=== PATIENT | male | born 1960 | race Caucasian/White ===

== ENCOUNTER → 2019-12-15 11:16 | Outpatient (BNVA) | payer SELFPAY | PROVIDERS: Visit Provider Nurse Practitioner | DX: E78.5 Hyperlipidemia, unspecified (principal) | CPT/HCPCS: 80053; 80061; 83721 ==

== ENCOUNTER 2019-12-16 11:38 | Outpatient (REF) | payer SELFPAY | END 2019-12-16 11:39 | disposition home or self-care (01) | LOC: LAB 11:38 | PROVIDERS: PCP Nurse Practitioner; Visit Provider Nurse Practitioner | DX: Z01.89 Encounter for other specified special examinations (principal) ==

== ENCOUNTER → 2020-06-12 08:33 | Outpatient (BNVA) | payer SELFPAY | PROVIDERS: PCP Nurse Practitioner; Visit Provider Family Medicine Adult Medicine | DX: E78.5 Hyperlipidemia, unspecified (principal); I10 Essential (primary) hypertension; M1A.9XX0 Chronic gout, unspecified, without tophus (tophi); M19.90 Unspecified osteoarthritis, unspecified site; N18.9 Chronic kidney disease, unspecified; M54.9 Dorsalgia, unspecified; M25.512 Pain in left shoulder; M62.838 Other muscle spasm; J30.89 Other allergic rhinitis; K21.9 Gastro-esophageal reflux disease without esophagitis | CPT/HCPCS: 80053; 80061; 83721; 84550; 85025; 86140 ==

== ENCOUNTER → 2020-09-11 09:03 | Outpatient (BNVA) | payer SELFPAY | PROVIDERS: PCP Family Medicine Adult Medicine; Visit Provider Family Medicine Adult Medicine | DX: E78.5 Hyperlipidemia, unspecified (principal); M1A.9XX0 Chronic gout, unspecified, without tophus (tophi); M19.90 Unspecified osteoarthritis, unspecified site; N18.30 Chronic kidney disease, stage 3 unspecified; Z00.00 Encounter for general adult medical examination without abnormal findings; I12.9 Hypertensive chronic kidney disease with stage 1 through stage 4 chronic kidney disease, or unspecified chronic kidney disease | CPT/HCPCS: 80053; 80061; 83721; 84443 ==

== ENCOUNTER → 2021-04-16 08:42 | Outpatient (BNVA) | payer SELFPAY | PROVIDERS: PCP Family Medicine Adult Medicine; Visit Provider Family Medicine Adult Medicine | DX: I12.9 Hypertensive chronic kidney disease with stage 1 through stage 4 chronic kidney disease, or unspecified chronic kidney disease (principal); E78.5 Hyperlipidemia, unspecified; N18.30 Chronic kidney disease, stage 3 unspecified; M54.9 Dorsalgia, unspecified; M25.512 Pain in left shoulder; M62.838 Other muscle spasm; M19.90 Unspecified osteoarthritis, unspecified site; Z00.00 Encounter for general adult medical examination without abnormal findings; M1A.9XX0 Chronic gout, unspecified, without tophus (tophi) | CPT/HCPCS: 80048; 80061; 83036; 83721 ==

== ENCOUNTER → 2021-07-16 08:17 | Outpatient (BNVA) | payer SELFPAY | PROVIDERS: PCP Family Medicine Adult Medicine; Visit Provider Family Medicine Adult Medicine | DX: I12.9 Hypertensive chronic kidney disease with stage 1 through stage 4 chronic kidney disease, or unspecified chronic kidney disease (principal); N18.30 Chronic kidney disease, stage 3 unspecified; M1A.9XX0 Chronic gout, unspecified, without tophus (tophi); Z00.00 Encounter for general adult medical examination without abnormal findings; E78.5 Hyperlipidemia, unspecified | CPT/HCPCS: 80053; 80061; 83721; 84550; 85025 ==

== ENCOUNTER 2021-10-01 09:39 | Outpatient (CLI) | payer SELFPAY ==
--- NOTE | 2021-10-01 09:46 | US_ITS ---
WS: [id number] RENAL ULTRASOUND HISTORY: STAGE 3B CHRONIC KIDNEY DZ COMPARISON: None available. TECHNIQUE: 2-D and color Doppler imaging of the kidney submitted. Right kidney: 11.2 cm x 5.4 cm x 5.4 cm. There is very slight increased echogenicity within the RIGHT kidney. No obstruction or mass. Left kidney: 11.4 cm x 4.1 cm x 5.5 cm. Normal size kidney. Normal echogenicity. Simple cyst from the superior pole measures 2.4 x 2.2 x 2.4 cm. No solid mass. Aorta: Normal. Urinary Bladder: Moderately well distended urinary bladder. Mild diffuse wall thickening. Prostate gl and is lobulated and enlarged and hypoechoic extending into the bladder. Prostate measures 4.0 x 3.3 x 3.7 cm. US/US renal BI* [id number] IMPRESSION: 1. No hydronephrosis. 2. Very minimal increased echogenicity within the RIGHT kidney. No obvious fin dings of chronic medical renal disease by ultrasound. 3. Simple cyst LEFT kidney. 4. Enlarged lobulated prostate.
== END 2021-10-01 09:40 | disposition home or self-care (01) ==
LOC: RAD 09:42
PROVIDERS: PCP Family Medicine Adult Medicine; Visit Provider Registered Nurse
DX: N18.32 Chronic kidney disease, stage 3b (principal); N40.0 Benign prostatic hyperplasia without lower urinary tract symptoms; N28.1 Cyst of kidney, acquired
CPT/HCPCS: 76770

== ENCOUNTER → 2021-10-15 08:36 | Outpatient (BNVA) | payer SELFPAY | PROVIDERS: PCP Family Medicine Adult Medicine; Visit Provider Family Medicine Adult Medicine | DX: Z00.00 Encounter for general adult medical examination without abnormal findings (principal); M79.601 Pain in right arm; M54.59 Other low back pain; I12.9 Hypertensive chronic kidney disease with stage 1 through stage 4 chronic kidney disease, or unspecified chronic kidney disease; E78.5 Hyperlipidemia, unspecified; N18.30 Chronic kidney disease, stage 3 unspecified; Z68.28 Body mass index [BMI] 28.0-28.9, adult; Z71.89 Other specified counseling | CPT/HCPCS: 80061; 80069; 81003; 82043; 82306; 82310; 83721; 83883; 83970; 84155; 84165; 85025 ==

== ENCOUNTER 2021-11-19 09:45 | Outpatient (CLI) | payer SELFPAY ==
[2021-11-19 10:29] LABS: Basophils # 0.1 10^3/uL (0.0-0.1); Basophils % 0.8 %; Eosinophils # 0.5 10^3/uL (0.0-0.8); Eosinophils % 5.1 %; Hematocrit 47.4 % (42.0-52.0); Hemoglobin 15.6 g/dL (11.7-16.6); Lymphocytes % 21.6 %; Mean Corpuscular HGB Conc 32.9 g/dL (30.0-36.0); Mean Corpuscular Hemoglobin 29.6 pg (28.0-34.0); Mean Corpuscular Volume 89.9 fl (80-94); Mean Platelet Volume 11.7 fL (7.4-10.4); Monocytes # 0.6 10^3/uL (0.2-0.9); Monocytes % 6.5 %; Neutrophils # 5.98 10^3/uL (1.8-7.7); Neutrophils % 65.7 %; Nucleated Red Blood Cells % 0 %; Platelet Count 229 10^3/cmm (130-400); Red Blood Count 5.27 10^6/uL (4.1-5.3); White Blood Count 9.1 10^3/uL (4.0-10.0)
[2021-11-19 10:54] LABS: Calcium 9.9 mg/dL (8.5-10.5)
[2021-11-19 10:57] LABS: Anion Gap 17.8 (5-19); Blood Urea Nitrogen 28 mg/dL (8-23); Calcium 10.1 mg/dL (8.5-10.5); Carbon Dioxide 22 mmol/L (22-29); Chloride 103 mmol/L (98-107); Glomerular Filtration Rate 51.4 mL/min (90-130); Glucose 107 mg/dL (65-115); Phosphorus 2.5 mg/dL (2.5-4.5); Potassium 4.8 mmol/L (3.5-5.1); Sodium 138 mmol/L (136-145)
[2021-11-19 11:01] LABS: Parathyroid Hormone 109.8 pg/mL (15-65)
[2021-11-19 11:10] LABS: Creatinine Urine, Random 196 mg/dL (39-259); Microalbumin Random Urine 20 ug/dL (0-20)
[2021-11-19 11:11] LABS: Microalbum Creatinine Ratio Ur 102 mg/dL (0-20)
== END 2021-11-19 09:46 | disposition home or self-care (01) ==
LOC: LAB 09:57
PROVIDERS: PCP Family Medicine Adult Medicine; Visit Provider Internal Medicine Nephrology
DX: N18.32 Chronic kidney disease, stage 3b (principal)
CPT/HCPCS: 80069; 82044; 82310; 83970; 85025

== ENCOUNTER → 2023-11-18 09:37 | Outpatient (BNVA) | payer SELFPAY | PROVIDERS: PCP Family Medicine Adult Medicine; Visit Provider Family Medicine Adult Medicine | DX: N18.30 Chronic kidney disease, stage 3 unspecified (principal); I10 Essential (primary) hypertension; E78.5 Hyperlipidemia, unspecified; Z00.00 Encounter for general adult medical examination without abnormal findings; M1A.9XX0 Chronic gout, unspecified, without tophus (tophi) | CPT/HCPCS: 80053; 80061; 84443; 84550; 85025; G0103 ==

== ENCOUNTER 2023-12-23 09:21 | Observation (INO) | payer SELFPAY ==
[2023-12-23] VITALS (10 sets, daily range): BP systolic 110–135; BP diastolic 68–79; PULSE 72–115; RESP 16–20; TEMP 36.5–36.9; O2SAT 95–100; BMI 26.0
--- NOTE | 2023-12-23 09:40 | XR_ITS ---
WS: [id number] Exam: XR chest 1V portable [id number] Date/Time of Exam: 12/23/2023 9:41 AM Reason For Exam: syncope No priors. The lungs are clear and fully expanded. Normal cardiomediastinal silhouette. Bony structures are unre markable. Moderate levoscoliosis of the T-spine. IMPRESSION: 1. No acute cardiopulmonary finding.
--- NOTE | 2023-12-23 09:41 | ECG_ITS ---
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 Measurements Intervals [employer] Rate: 83 P: 27 NC: 174 QRS: 24 QRSD: 84 T: 47 QT: 363 QTc: 427 Interpretive Statements SINUS RHYTHM WITH OCCASIONAL VENTRICULAR PREMATURE COMPLEXES No previous ECG available for comparison Electronically Signed On 12-24-2023 23:42:25 CDT by Lula Cadena M.D. [id number]
--- NOTE | 2023-12-23 09:47 | ED_ITS ---
Documented by User: GIOVANI Romero 12/23/23 13:00 HPI - Syncope 2 General: Chief Complaint: Syncope Stated Complaint: Syncope Time Seen by Provider: 12/23/23 09:46 Source: patient and EMS Mode of arrival: EMS Limitations: no limitations History of Present Illness: Patient is a 63-year-old male with a history of CKD stage III, osteoarthritis, GERD, gout, seasonal allergies, hypertension, former smoker, COPD, hyperlipidemia, and gastritis here via EMS following a syncopal episode. Patient states that he has not felt good in 3 weeks stating that his stomach has been bothering me . He states today while at work he began feeling lightheaded and dizzy. 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 Patient denies ever feeling chest pain, shortness of breath, or difficulty breathing. According to EMS blood pressure was low upon arrival but did respond to a small fluid bolus. He has had bouts of dizziness before but never passed out. States he takes a PPI for his stomach pains. PCP is Dr. Gilmore. Patient works at [employer] and this is a Worker's Comp injury reportedly. [employer] is requesting UDS. complaint: loss of consciousness Onset (ago): hour(s) -: second(s) Prodromal symptoms: lightheaded Witnessed: Yes - by Bystander Injuries sustained associated with event: face (glasses scraped his face) Associated symptoms: Reports abdominal pain and nausea; Deny chest pain, fever(s), headache(s) or lightheadedness Treatments prior to arrival: IV fluids Review of Systems 2 Const: Denies: fever(s), chills, body aches, fatigue or malaise Eyes: Denies: change in vision or blurry vision Card: Reports: syncope; Denies: chest pain, palpitations, irregular heart rhythm, swelling of feet/ankles, lightheadedness, dyspnea on exertion, orthopnea, leg pain with exertion or acrocyanosis Resp: Denies: dyspnea, productive cough or pain on inspiration GI: Reports: abdominal pain, nausea and heartburn; Denies: vomiting, diarrhea, hematochezia or melena : Denies: difficulty urinating or dysuria Musc: Reports: neck pain (chronic); Denies: back pain, extremity pain, extremity swelling or joint pain Skin/Breast: Denies: rash Neuro: Denies: headache(s), numbness in extremities, weakness in extremities, sensory changes or dizziness PFSH ED 2 PFSH: Medical History (Updated 12/23/23 @ 14:05 by Luis A Contreras MD) Refusal of blood transfusions as patient is Mormonism COPD (chronic obstructive pulmonary disease) Former cigarette smoker Encounter for health maintenance examination in adult Hematuria, microscopic BPH (benign prostatic hyperplasia) CKD (chronic kidney disease) stage 3, GFR 30-59 ml/min 11/18/2023 creatinine 1.8 with a GFR 38 Muscle spasms of both lower extremities Hypertension Hyperlipidemia GERD (gastroesophageal reflux disease) Chronic gout Osteoarthritis Surgical History History of tonsillectomy History of hand surgery right Family History Brother Cancer Father Lung disease Social History Smoking and tobacco/nicotine status: former use of tobacco/nicotine Alcohol intake: current Alcohol intake frequency: holidays/special occasions only Substance/Drug Use: never Physical Exam 2 Const: COMMON NORMALS: no acute distress, average body habitus, patient oriented x3, no limitations, healthy appearing, alert and well nourished O RIENTATION/CONSCIOUSNESS: Yes awake, Yes oriented to person, Yes oriented to place and Yes oriented to time HENMT: COMMON NORMALS: normocephalic and atraumatic HEAD & SCALP: n ormocephalic and atraumatic FACE & SINUS: normal facial exam (apart from a small scratch to L cheek from glasses) Eye: GENERAL EYE: appearance normal, both eyes and all related structures Neck/C-Spine: COMMON NORMALS: full ROM, no lymphadenopathy, supple and no meningeal signs Chest: COMMONS NORMALS: normal inspection of the chest Resp: COMMON NORMALS: normal respiratory effort and clear to auscultation bilaterally AUSCULTATION: clear to auscultation bilaterally Cardio: COMMON NORMALS: regular rate and regular rhythm RATE: regular rate RHYTHM: regular rhythm GI: COMMON NORMALS: Normal to inspection, nondistended, normoactive bowel sounds present, Soft to palpation, No hepatosplenomegaly present and no masses INSPECTION: Yes normal to inspection AUSCULTATION: Yes normoactive bowel sounds PALPATION: Yes Soft to palpation, Yes Tenderness to palpation present (GI) (epigastric), No Guarding due to palpation present (GI), No Rigid due to palpation and Yes No hepatosplenomegaly present RECTAL EXAM: Yes heme negative stool : COMMON NORMALS: Yes no CVA tenderness BLADDER/KIDNEY EXAM: Yes no CVA tenderness Back/Pelvis: COMMON NORMALS: no CVA tenderness and thoracic and lumbar spine normal to inspection Extremity: COMMON NORMALS: normal to inspection, capillary refill normal, no clubbing, cyanosis or edema, no calf tenderness and no pedal edema Neuro: CLARE COMA SCALE: document GCS findings Clare coma scale eye opening: Spontaneous Clare coma scale verbal response: Orientated Clare coma scale motor response: Obey commands Clare coma scale total score: 15 COMMON NORMALS: patient oriented x3, moves all extremities, no focal motor deficits and no sensory deficits noted SENSORIUM/ORIENTATION: Yes alert, Yes oriented to person, Yes oriented to place and Yes oriented to time MENINGEAL SIGNS: Yes no meningeal signs Skin: COMMON NORMALS: no rashes or lesions noted GENERAL SKIN EXAM: no rashes or lesions noted Course 2 Consultations: Consultation #1: Dr. Contreras-will accept hospitalization Consultation #2: Dr. Fitzgerald-will consult with plan for endoscopy/biopsy tomorrow Vital Signs: Vital signs: Vital Signs Temperature 97.7 F 12/23/23 09:26 Pulse Rate 107 H 12/23/23 13:00 Respiratory Rate 20 H 12/23/23 09:26 Blood Pressure 110/77 12/23/23 13:00 Pulse Oximetry 96 12/23/23 13:00 Oxygen Delivery Me thod Room Air 12/23/23 09:26 MDM - Syncope Medical Decision Making Patient is a nice 63-year-old male here for dizziness/syncopal episode while at work today. Patient states he has not felt well over the past 3 weeks and has not ate or drink much secondary to pain and feeling like his food gets stuck. He has not had any vomiting. Labs today showing some mild anemia compared to labs drawn last month. Hemoccult was negative. He does have acute kidney injury with his creatinine being 2.7 which is up from his baseline. Baseline troponin of 22 with a negative delta. Remainder of labs are fairly unremarkable. 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 Spoke to Dr. Contreras who is agreeable to admission. Dr. Fitzgerald was consulted and was agreeable to biopsy mass tomorrow. Lab Data 12/23/23 09:58 12/23/23 09:58 Laboratory Results WBC 14.81 10^3/uL (3.29-11.43) H 12/23/23 09:58 RBC 4.04 10^6/uL (3.85-5.65) 12/23/23 09:58 Hgb 10.20 g/dL (11.27-16.99) L 12/23/23 09:58 Hct 33.2 % (37-53) L 12/23/23 09:58 MCV 82.2 fl (82-101) 12/23/23 09:58 MCH 25.2 pg (27-33) L 12/23/23 09:58 MCHC 30.7 g/dL (30-55) 12/23/23 09:58 RDW 15.6 % (12.1-15.1) H 12/23/23 09:58 Plt Count 435 10^3/cmm (157-399) H 12/23/23 09:58 MPV 10.3 fL (7.4-10.4) 12/23/23 09:58 Neut % (Auto) 81.1 % 12/23/23 09:58 Lymph % (Auto) 8.7 % 12/23/23 09:58 Donley % (Auto) 8.4 % 12/23/23 09:58 Eos % (Auto) 0.9 % 12/23/23 09:58 Baso % (Auto) 0.4 % 12/23/23 09:58 Neut # (Auto) 12.01 10^3/uL (1.8-7.7) H 12/23/23 09:58 Lymph # (Auto) 1.3 10^3/uL (0.8-4.8) 12/23/23 09:58 Donley # (Auto) 1.2 10^3/uL (0.2-0.9) H 12/23/23 09:58 Eos # (Auto) 0.1 10^3/uL (0.0-0.8) 12/23/23 09:58 Baso # (Auto) 0.1 10^3/uL (0.0-0.1) 12/23/23 09:58 Nucleated RBC % (auto) 0 % 12/23/23 09:58 Nucleated RBCs # 0.0 /100WBC 12/23/23 09:58 Sodium 133 mmol/L (136-145) L 12/23/23 09:58 Potassium 5.0 mmol/L (3.5-5.1) 12/23/23 09:58 Chloride 99 mmol/L (98-107) 12/23/23 09:58 Carbon Dioxide 18 mmol/L (22-29) L 12/23/23 09:58 Anion Gap 21.0 (5-19) H 12/23/23 09:58 BUN 38 mg/dL (8-23) H 12/23/23 09:58 Creatinine 2.7 mg/dL (0.7-1.2) H 12/23/23 09:58 GFR Calculation 23.9 mL/min (90-130) L 12/23/23 09:58 Glucose 121 mg/dL (65-115) H 12/23/23 09:58 Calculated Osmolality 286 mOsm/kg (285-295) 12/23/23 09:58 Calcium 9.4 mg/dL (8.5-10.5) 12/23/23 09:58 Total Bilirubin 0.3 mg/dL (0.15-1.2) 12/23/23 09:58 AST 12 U/L (0-40) 12/23/23 09:58 ALT 8 U/L (0-41) 12/23/23 09:58 Alkaline Phosphatase 70 U/L (40-130) 12/23/23 09:58 Troponin T Baseline 22 ng/L (0-15) H 12/23/23 09:58 Troponin T 120 Minute 17.15 ng/L (0-15) H 12/23/23 12:00 Delta Troponin T -4.85 ABS# (0-10) L 12/23/23 12:00 Total Protein 6.6 g/dL (6.6-8.7) 12/23/23 09:58 Albumin 3.9 g/dL (3.5-5.2) 12/23/23 09:58 Globulin 2.7 g/dL (1.3-4.6) 12/23/23 09:58 Urine Color Yellow (Yellow) 12/23/23 11:41 Urine Appearance Clear (CLEAR) 12/23/23 11:41 Urine pH 5 (5-7) 12/23/23 11:41 Ur Specific Barling 1.010 (1.005-1.030) 12/23/23 11:41 Urine Protein Trace (Negative) 12/23/23 11:41 Urine Glucose (UA) Norm (Normal) 12/23/23 11:41 Urine Ketones Negative (Negative) 12/23/23 11:41 Urine Blood Neg (Negative) 12/23/23 11:41 Urine Nitrate Negative (Negative) 12/23/23 11:41 Urine Bilirubin Neg (Negative) 12/23/23 11:41 Urine Urobilinogen Norm mg/dL (Negative) 12/23/23 11:41 Ur Leukocyte Esterase Negative (Negative) 12/23/23 11:41 Urine RBC 0-4 /hpf (0-2) H 12/23/23 11:41 Urine WBC 0-4 /hpf (0-5) H 12/23/23 11:41 Ur Squamous Epith Cells 0-4 /hpf (0-5) H 12/23/23 11:41 Amorphous Sediment Trace /hpf 12/23/23 11:41 Urine Bacteria 1+ /hpf (NONE) H 12/23/23 11:41 Hyaline Casts 0-4 /lpf H 12/23/23 11:41 Fine Granular Casts 0-4 /lpf H 12/23/23 11:41 Urine Mucus Trace /hpf 12/23/23 11:41 Urine Opiates Screen Negative ng/mL (Negative) 12/23/23 11:41 Ur Barbiturates Screen Negative ng/mL (Negative) 12/23/23 11:41 Ur Phencyclidine Scrn Negative ng/mL (Negative) 12/23/23 11:41 Ur Amphetamines Screen Negative ng/mL (Negative) 12/23/23 11:41 U Benzodiazepines Scrn Negative ng/mL (Negative) 12/23/23 11:41 Urine Cocaine Screen Negative ng/mL (Negative) 12/23/23 11:41 U Marijuana (THC) Screen Negative ng/mL (Negative) 12/23/23 11:41 All radiology interpretation(s) finalized by discharge Discharge Plan Discharge Patient Disposition: Admitted As Inpatient Clinical Impression: Mass of esophagus, ERIKA (acute kidney injury) Syncope Qualifiers: Syncope type: unspecified Qualified Code(s): R55 - Syncope and collapse Condition: Stable Coding Level of Care Code 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 Documented by User: Mook Ward DO 12/23/23 14:42 HPI - Syncope 2 General: Chief Complaint: Syncope Stated Complaint: Syncope Time Seen by Provider: 12/23/23 09:46 [facility] ED 2 PFSH: Medical History (Updated 12/23/23 @ 14:05 by Luis A Contreras MD) Refusal of blood transfusions as patient is [employer]ism COPD (chronic obstructive pulmonary disease) Former cigarette smoker Encounter for health maintenance examination in adult Hematuria, microscopic BPH (benign prostatic hyperplasia) CKD (chronic kidney disease) stage 3, GFR 30-59 ml/min 11/18/2023 creatinine 1.8 with a GFR 38 Muscle spasms of both lower extremities Hypertension Hyperlipidemia GERD (gastroesophageal reflux disease) Chronic gout Osteoarthritis Surgical History History of tonsillectomy History of hand surgery right Family History Brother Cancer Father Lung disease Social History Smoking and tobacco/nicotine status: former use of tobacco/nicotine Alcohol intake: current Alcohol intake frequency: holidays/special occasions only Substance/Drug Use: never Physical Exam 2 Neuro: CLARE COMA SCALE: document GCS findings [place] coma scale total score: 15 Course 2 Vital Signs: Vital signs: Vital Signs Temperature 97.7 F 12/23/23 09:26 Pulse Rate 107 H 12/23/23 13:00 Respiratory Rate 20 H 12/23/23 09:26 Blood Pressure 110/77 12/23/23 13:00 Pulse Oximetry 96 12/23/23 13:00 Oxygen Delivery Me thod Room Air 12/23/23 09:26 MDM - Syncope Medical Decision Making Patient is a nice 63-year-old male here for dizziness/syncopal episode while at work today. Patient states he has not felt well over the past 3 weeks and has not ate or drink much secondary to pain and feeling like his food gets stuck. He has not had any vomiting. Labs today showing some mild anemia compared to labs drawn last month. Hemoccult was negative. He does have acute kidney injury with his creatinine being 2.7 which is up from his baseline. Baseline troponin of 22 with a negative delta. Remainder of labs are fairly unremarkable. 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 Spoke to Dr. Contreras who is agreeable to admission. Dr. Fitzgerald was consulted and was agreeable to biopsy mass tomorrow. Chart reviewed and patient discussed with midlevel. Agree with assessment and plan. Lab Data 12/23/23 09:58 12/23/23 09:58 Laboratory Results WBC 14.81 10^3/uL (3.29-11.43) H 12/23/23 09:58 RBC 4.04 10^6/uL (3.85-5.65) 12/23/23 09:58 Hgb 10.20 g/dL (11.27-16.99) L 12/23/23 09:58 Hct 33.2 % (37-53) L 12/23/23 09:58 MCV 82.2 fl (82-101) 12/23/23 09:58 MCH 25.2 pg (27-33) L 12/23/23 09:58 MCHC 30.7 g/dL (30-55) 12/23/23 09:58 RDW 15.6 % (12.1-15.1) H 12/23/23 09:58 Plt Count 435 10^3/cmm (157-399) H 12/23/23 09:58 MPV 10.3 fL (7.4-10.4) 12/23/23 09:58 Neut % (Auto) 81.1 % 12/23/23 09:58 Lymph % (Auto) 8.7 % 12/23/23 09:58 Donley % (Auto) 8.4 % 12/23/23 09:58 Eos % (Auto) 0.9 % 12/23/23 09:58 Baso % (Auto) 0.4 % 12/23/23 09:58 Neut # (Auto) 12.01 10^3/uL (1.8-7.7) H 12/23/23 09:58 Lymph # (Auto) 1.3 10^3/uL (0.8-4.8) 12/23/23 09:58 Donley # (Auto) 1.2 10^3/uL (0.2-0.9) H 12/23/23 09:58 Eos # (Auto) 0.1 10^3/uL (0.0-0.8) 12/23/23 09:58 Baso # (Auto) 0.1 10^3/uL (0.0-0.1) 12/23/23 09:58 Nucleated RBC % (auto) 0 % 12/23/23 09:58 Nucleated RBCs # 0.0 /100WBC 12/23/23 09:58 Sodium 133 mmol/L (136-145) L 12/23/23 09:58 Potassium 5.0 mmol/L (3.5-5.1) 12/23/23 09:58 Chloride 99 mmol/L (98-107) 12/23/23 09:58 Carbon Dioxide 18 mmol/L (22-29) L 12/23/23 09:58 Anion Gap 21.0 (5-19) H 12/23/23 09:58 BUN 38 mg/dL (8-23) H 12/23/23 09:58 Creatinine 2.7 mg/dL (0.7-1.2) H 12/23/23 09:58 GFR Calculation 23.9 mL/min (90-130) L 12/23/23 09:58 Glucose 121 mg/dL (65-115) H 12/23/23 09:58 Calculated Osmolality 286 mOsm/kg (285-295) 12/23/23 09:58 Calcium 9.4 mg/dL (8.5-10.5) 12/23/23 09:58 Total Bilirubin 0.3 mg/dL (0.15-1.2) 12/23/23 09:58 AST 12 U/L (0-40) 12/23/23 09:58 ALT 8 U/L (0-41) 12/23/23 09:58 Alkaline Phosphatase 70 U/L (40-130) 12/23/23 09:58 Troponin T Baseline 22 ng/L (0-15) H 12/23/23 09:58 Troponin T 120 Minute 17.15 ng/L (0-15) H 12/23/23 12:00 Delta Troponin T -4.85 ABS# (0-10) L 12/23/23 12:00 Total Protein 6.6 g/dL (6.6-8.7) 12/23/23 09:58 Albumin 3.9 g/dL (3.5-5.2) 12/23/23 09:58 Globulin 2.7 g/dL (1.3-4.6) 12/23/23 09:58 Urine Color Yellow (Yellow) 12/23/23 11:41 Urine Appearance Clear (CLEAR) 12/23/23 11:41 Urine pH 5 (5-7) 12/23/23 11:41 Ur Specific [place] 1.010 (1.005-1.030) 12/23/23 11:41 Urine Protein Trace (Negative) 12/23/23 11:41 Urine Glucose (UA) Norm (Normal) 12/23/23 11:41 Urine Ketones Negative (Negative) 12/23/23 11:41 Urine Blood Neg (Negative) 12/23/23 11:41 Urine Nitrate Negative (Negative) 12/23/23 11:41 Urine Bilirubin Neg (Negative) 12/23/23 11:41 Urine Urobilinogen Norm mg/dL (Negative) 12/23/23 11:41 Ur Leukocyte Esterase Negative (Negative) 12/23/23 11:41 Urine RBC 0-4 /hpf (0-2) H 12/23/23 11:41 Urine WBC 0-4 /hpf (0-5) H 12/23/23 11:41 Ur Squamous Epith Cells 0-4 /hpf (0-5) H 12/23/23 11:41 Amorphous Sediment Trace /hpf 12/23/23 11:41 Urine Bacteria 1+ /hpf (NONE) H 12/23/23 11:41 Hyaline Casts 0-4 /lpf H 12/23/23 11:41 Fine Granular Casts 0-4 /lpf H 12/23/23 11:41 Urine Mucus Trace /hpf 12/23/23 11:41 Urine Opiates Screen Negative ng/mL (Negative) 12/23/23 11:41 Ur Barbiturates Screen Negative ng/mL (Negative) 12/23/23 11:41 Ur Phencyclidine Scrn Negative ng/mL (Negative) 12/23/23 11:41 Ur Amphetamines Screen Negative ng/mL (Negative) 12/23/23 11:41 U Benzodiazepines Scrn Negative ng/mL (Negative) 12/23/23 11:41 Urine Cocaine Screen Negative ng/mL (Negative) 12/23/23 11:41 U Marijuana (THC) Screen Negative ng/mL (Negative) 12/23/23 11:41 Discharge Plan Discharge Patient Disposition: Admitted As Inpatient Clinical Impression: Mass of esophagus, ERIKA (acute kidney injury) Syncope Qualifiers: Syncope type: unspecified Qualified Code(s): R55 - Syncope and collapse Condition: Stable Coding Level of Care 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
--- NOTE | 2023-12-23 09:52 | CT_ITS ---
WS: [id number] CT ABDOMEN PELVIS TECHNIQUE: Noncontrast CT of the abdomen and pelvis with coronal and sagittal reformatted images. CLINICAL INFORMATION: abdominal pain; trouble eating; syncope COMPARISON: None. DLP: 612.[address] scans at [facility] use at least one of these dose optimization techniques: automated e xposure control; mA and/or kV adjustment per patient size (includes targeted exams where dose is matc hed to clinical indication); or iterative reconstruction. FINDINGS: Diffuse masslike thickening of the distal esophagus with heterogeneous bulky soft tissue at the GE ju nction suspicious for esophageal carcinoma. Bulky masslike soft tissue at the GE junction extending i nto the lesser curvature. Consider further evaluation with endoscopy and biopsy. Diffuse low-attenuation lesions within the liver suspicious for metastatic disease. Bulky masslike ly mphadenopathy in the upper abdomen with the largest conglomeration of lymph nodes measuring 6.6 x 4.1 cm compatible with metastatic disease. Multiple enlarged paraesophageal and gastrohepatic lymph node s. Adjacent noncontrast pancreas appears grossly normal. Noncontrast spleen appears normal. Adrenal g lands appear normal. No hydronephrosis in either kidney. Lobulated LEFT renal cysts. Enlarged prostate measuring 5.0 x 4.6 cm. Recommend correlation PSA. Slight grade 1 anterolisthesis L 5 on S1 with chronic spondylolysis. Normal caliber abdominal aorta. Mild aortic calcification. Normal appendix in the RIGHT lower quadrant. Incidental fat-containing inguinal hernias. A few prominent in guinal lymph nodes not pathologically enlarged. Bibasilar atelectasis. IMPRESSION: 1. Diffuse thickening involving the distal esophagus with masslike lobulated soft tissue at the GE j unction suspicious for neoplasm. This could be further evaluated with endoscopy. 2. Masslike lymphadenopathy in the upper abdomen described above. 3. Suspected diffuse hepatic metastasis. 4. Enlarged prostate measuring 4.6 x 5.0 cm. Recommend correlation PSA. 5. Chronic spondylolysis with grade 1 anterolisthesis L5 on S1. Notified GIOVANI Romero at 12/23/2023 11:50 AM.
[2023-12-23 10:15] LABS: Basophils # 0.1 10^3/uL (0.0-0.1); Basophils % 0.4 %; Eosinophils # 0.1 10^3/uL (0.0-0.8); Eosinophils % 0.9 %; Hematocrit 33.2 % (37-53); Lymphocytes # 1.3 10^3/uL (0.8-4.8); Lymphocytes % 8.7 %; Mean Corpuscular HGB Conc 30.7 g/dL (30-55); Mean Corpuscular Hemoglobin 25.2 pg (27-33); Mean Corpuscular Volume 82.2 fl (82-101); Mean Platelet Volume 10.3 fL (7.4-10.4); Monocytes # 1.2 10^3/uL (0.2-0.9); Monocytes % 8.4 %; Neutrophils # 12.01 10^3/uL (1.8-7.7); Neutrophils % 81.1 %; Nucleated Red Blood Cells % 0 %; Platelet Count 435 10^3/cmm (157-399); Red Blood Count 4.04 10^6/uL (3.85-5.65); Red Cell Distribution Width 15.6 % (12.1-15.1); White Blood Count 14.81 10^3/uL (3.29-11.43)
[2023-12-23 10:41] LABS: Troponin(5th) Baseline 22 ng/L (0-15)
[2023-12-23 10:42] LABS: Alanine Aminotransferase 8 U/L (0-41); Albumin Level 3.9 g/dL (3.5-5.2); Alkaline Phosphatase 70 U/L (40-130); Aspartate Amino Transferase 12 U/L (0-40); Blood Urea Nitrogen 38 mg/dL (8-23); Calcium 9.4 mg/dL (8.5-10.5); Carbon Dioxide 18 mmol/L (22-29); Chloride 99 mmol/L (98-107); Creatinine Clr Calc Pharmacy 30.9273; Globulin 2.7 g/dL (1.3-4.6); Glomerular Filtration Rate 23.9 mL/min (90-130); Glucose 121 mg/dL (65-115); Osmolality Calculated 286 mOsm/kg (285-295); Sodium 133 mmol/L (136-145); Total Bilirubin 0.3 mg/dL (0.15-1.2); Total Protein 6.6 g/dL (6.6-8.7)
[2023-12-23] MEDS: sodium chloride 0.9% 1,000 ML 999 ML IV (11:40)
--- NOTE | 2023-12-23 11:41 | ECG_ITS ---
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 Measurements Intervals [place] Rate: 82 P: 55 DE: 174 QRS: 24 QRSD: 87 T: 58 QT: 362 QTc: 424 Interpretive Statements SINUS RHYTHM Compared to ECG 12/23/2023 09:29:05 Ventricular premature complex(es) no longer present Electronically Signed On 12-24-2023 23:59:02 CDT by Lula Cadena M.D. [email or web address]/store/[id number]
[2023-12-23 12:02] LABS: Amphetamines Screen Urine Negative (Negative); Barbiturates Screen Urine Negative (Negative); Benzodiazepines Screen Urine Negative (Negative); Cocaine Screen Urine Negative (Negative); Opiate Screen Urine Negative (Negative); PCP Screen Urine Negative (Negative); THC Screen Urine Negative (Negative)
[2023-12-23 12:06] LABS: Bilirubin Urine Neg (Negative); Blood Urine Neg (Negative); Glucose Urine UA Norm (Normal); Ketones Urine Negative (Negative); Nitrate Urine Negative (Negative); Protein Urine Trace (Negative); Urine Appearance Clear (CLEAR); Urine Color Yellow (Yellow); pH Urine 5 (5-7)
[2023-12-23 12:07] LABS: Add Urine Microscopic? YES; Bacteria Urine 1+ /hpf; Leukocyte Esterase Urine Negative (Negative); Mucus Urine TRACE /hpf; RBC Urine 0-4 /hpf (0-2); Squamous Epithelial Cell Urine 0-4 /hpf (0-5); Urobilinogen Urine Norm (Negative); WBC Urine 0-4 /hpf (0-5)
[2023-12-23 12:11] LABS: Add Urine Culture? No; Amorphous Sediment Urine TRACE /hpf; Fine Granular Casts Urine 0-4 /lpf; Hyaline Casts Urine 0-4 /lpf
[2023-12-23 12:28] LABS: Troponin 5 2HR 17.15 ng/L (0-15)
[2023-12-23 12:29] LABS: Troponin 5 2HR Delta -4.85 ABS# (0-10)
--- NOTE | 2023-12-23 13:24 | P.HP_ITS ---
Providers/Chief Complaint 2 Primary Care Provider: Brad Gilmore MD Chief Complaint: Syncope History of Present Illness 63-year-old gentleman with history of CKD, HTN, HLD, former smoker, came in after feeling unwell over the last 3 weeks or so, was having what he thought was a flare of his GERD, having difficulty with swallowing, odynophagia, epigastric abdominal pain, poor appetite and oral intake, and at work was feeling lightheaded today, and had a syncopal episode when he was trying to find a place to sit down. He otherwise has been having some mild chills, denies other problems apart from some mild burning with urination. In ER he is found to be afebrile, with leukocytosis 14.8, ERIKA and CKD, BUN 38, creatinine 2.7, troponin baseline 22, 2-hour 17.15, unremarkable UDS. UA with 0-4 WBC, negative leukocyte Estrace and nitrate. Chest x-ray without acute findings. CT abdomen pelvis with diffuse thickening involving distal esophagus with masslike lobulated soft tissue at the GE junction suspicious for neoplasm. Masslike lymphadenopathy in the upper abdomen. Suspected diffuse hepatic metastasis. Enlarged prostate measuring 4.6 x 5 cm. Chronic spondylolysis with grade 1 anterolisthesis L5 on S1. Patient states he is a Uatsdin and does not take blood products. Review of Systems 2 Const: Denies: fever(s), chills, body aches or malaise ENMT: Denies: throat pain Card: Reports: edema and syncope; Denies: chest pain or dyspnea on exertion Resp: Denies: dyspnea, productive cough, change in phlegm color or hemoptysis GI: Reports: abdominal pain and heartburn; Denies: nausea, vomiting, diarrhea, constipation, hematochezia or melena : Denies: flank pain, difficulty urinating, urinary frequency or hematuria Musc: Denies: back pain, joint swelling or joint redness Skin/Breast: Denies: rash or new lesions Neuro: Reports: dizziness; Denies: headache(s) Medications/Allergies Home Medications Medication Instructions Recorded Confirmed Last Taken Type albuterol sulfate 90 mcg/actuation 2 puff inhalation Q4H PRN 11/18/23 12/23/23 Unknown Rx aerosol inhaler (Ventolin HFA) shortness of breath or wheezing #8.5 grams allopurinol 300 mg tablet 150 mg (1/2 x 300 mg) PO DAILY 11/18/23 12/23/23 12/23/23 Rx Gout #90 tabs amlodipine 10 mg tablet (Norvasc) 10 mg PO DAILY 90 days #90 tabs 11/18/23 12/23/23 12/23/23 Rx atorvastatin 80 mg tablet 80 mg PO DAILY chol & fats #90 tabs 11/18/23 12/23/23 Unknown Rx cyclobenzaprine 5 mg tablet 5 mg PO BID PRN muscle spasm 60 11/18/23 12/23/23 Unknown Rx days #120 tabs diclofenac sodium 1 % topical gel 4 g topical QID PRN left shoulder 11/18/23 12/23/23 Unknown Rx pain 30 days #100 grams gabapentin 300 mg capsule 300 mg PO DAILY 90 days #90 caps 11/18/23 12/23/23 12/22/23 Rx loratadine 10 mg tablet (Claritin) 10 mg PO DAILY allergies #90 tabs 11/18/23 12/23/23 Unknown Rx losartan 100 mg tablet 100 mg PO DAILY BP 90 days #90 tabs 11/18/23 12/23/23 12/23/23 Rx metoprolol tartrate 100 mg tablet 100 mg PO BID BP 30 days #180 tabs 11/18/23 12/23/23 12/23/23 Rx omeprazole magnesium 20 mg 20 mg PO DAILY PRN acid reflux #90 11/18/23 12/23/23 Unknown Rx tablet,delayed release (Prilosec tabs OTC) Allergies Allergy/AdvReac Type Severity Reaction Status Date / Time hydrochlorothiazide Allergy Intermediate ADR-Muscle Verified 11/18/23 08:56 Pain PFSH Acute 2 PFSH: Medical History (Updated 12/23/23 @ 14:05 by Luis A Contreras MD) Refusal of blood transfusions as patient is Uatsdin COPD (chronic obstructive pulmonary disease) Former cigarette smoker Encounter for health maintenance examination in adult Hematuria, microscopic BPH (benign prostatic hyperplasia) CKD (chronic kidney disease) stage 3, GFR 30-59 ml/min 11/18/2023 creatinine 1.8 with a GFR 38 Muscle spasms of both lower extremities Hypertension Hyperlipidemia GERD (gastroesophageal reflux disease) Chronic gout Osteoarthritis Surgical History History of tonsillectomy History of hand surgery right Family History Brother Cancer Father Lung disease Social History Smoking and tobacco/nicotine status: former use of tobacco/nicotine Alcohol intake: current Alcohol intake frequency: holidays/special occasions only Substance/Drug Use: never Vitals/I&O/Wt Last Vital Signs Temp 97.7 F 12/23/23 09:26 Pulse 107 H 12/23/23 13:00 Resp 20 H 12/23/23 09:26 BP 110/77 12/23/23 13:00 Pulse Ox 96 12/23/23 13:00 O2 Del Method Room Air 12/23/23 09:26 Weight last 48 hrs Weight 84.822 kg Physical Exam 2 Narrative: Sitting up in bed. Accompanied by family. Const: COMMON NORMALS: patient oriented x3 and alert GENERAL APPEARANCE: c ooperative ORIENTATION/CONSCIOUSNESS: Yes awake HENMT: COMMON NORMALS: oropharynx normal Neck/C-Spine: COMMON NORMALS: no JVD Resp: COMMON NORMALS: normal respiratory effort and clear to auscultation bilaterally AUSCULTATION: clear to auscultation bilaterally Cardio: COMMON NORMALS: no JVD, regular rhythm, S1 normal heart sound present, S2 normal heart sound present and No murmurs present (Cardio) RHYTHM: regular rhythm HEART SOUNDS: S1 normal heart sound present and S2 normal heart sound present GI: COMMON NORMALS: Normal to inspection, nondistended, normoactive bowel sounds present, Soft to palpation and non-tender PALPATION: Yes Soft to palpation Extremity: COMMON NORMALS: no joint enlargement and no pedal edema Neuro: COMMON NORMALS: patient oriented x3 and moves all extremities S ENSORIUM/ORIENTATION: Yes alert Skin: COMMON NORMALS: no rashes or lesions noted GENERAL SKIN EXAM: no rashes or lesions noted Data 12/23/23 09:58 12/23/23 09:58 A&P Assessment and plan (1) Syncope: Reviewed vitals, CBC, CMP, baseline and 2-hour troponin, UA, UDS, EKG on my interpretation with with sinus rhythm, no signs of ischemia, chest x-ray, CT abdomen pelvis, ER documentation, discussed with ER provider. Possible cardiogenic shock, hypotensive, possibly secondary to toxic effects of antihypertensives in the setting of ERIKA. Reviewed orthostatic vitals as well. Does not orthostatic, but heart rate did come up on standing. He is noted to have ERIKA on CKD. Was hypotensive initially on assessment by EMS but did respond to small fluid bolus. Discussed with him and family possibility that syncope may have occurred possibly secondary to medication toxicity with hypotension in the setting of ERIKA with him continue to take his antihypertensives. Hold antihypertensives for now. Monitor blood pressure. Reassess renal function. Additionally he does have cardiac risk factors including his age, history of hypertension, hyperlipidemia, former smoker. So far no evidence of ischemia. Will assess TTE. Monitor on telemetry. Consider event monitor. Qualifiers: Syncope type: unspecified Qualified Code(s): R55 - Syncope and collapse (2) Acute kidney injury superimposed on CKD: Cr 2.7 which is higher than usual. Unclear cause, but possibly due to decreased oral intake, dehydration, additionally uses diclofenac gel. Discussed with him to avoid NSAIDs even topical ones which could still have some systemic absorption. Reviewed CT scan, no hydronephrosis. Possibly prerenal with hypotension on presentation, has continued taking antihypertensives. Hold antihypertensives for now. Gentle IV fluid challenge. Reassess renal function. Check CK (3) Leukocytosis: Unclear cause of leukocytosis, possibly related to lower esophageal masslike findings, with possible metastatic disease to the liver. He reports has had some chills. Will obtain respiratory viral panel. Reviewed chest x-ray, UA, not suggestive of acute infection. (4) Mass of esophagus: Masslike thickening of distal esophagus, suspected malignancy, possible metastatic lesions to the liver. He would like not to delay diagnosis and surgery is consulted in the ER for additional assessment and EGD with biopsy. He will need to follow-up with oncology. He is Uatsdin and does not accept blood products. Discussed with him potential risk of bleeding with EGD and biopsy History of smoking. Additionally noted acute anemia, hemoglobin down to 10.2. Continue PPI. He has been having some odynophagia. Reduced appetite and oral intake. No signs of overt obstruction. (5) Abnormal liver CT: Possible diffuse metastatic disease of the liver. Liver parameters appear unremarkable. (6) Anemia: Acute anemia,, 10.2. Platelets WNL. Previously not anemic. Masslike thickening of distal esophagus, possible GI blood loss. Denies hematochezia or melena. Discussed with him to avoid NSAIDs. Continue PPI. Reassess blood counts. (7) Refusal of blood transfusions as patient is Uatsdin: (8) Prostate enlargement: Incidentally noted on CT, follow-up with primary provider, consider PSA. Plan Former smoker HTN: Hold antihypertensives as has been hypotensive HLD: With ERIKA check CK hold statin for now Attestations 2 Medical Necessity Statement*: Place in observation for additional assessment management of syncopal episode, ERIKA on CKD, acute anemia, possible new malignancy. Diagnoses Syncope R55 Syncope type: unspecified Acute kidney injury superimposed on CKD N17.9; N18.9 Leukocytosis D72.829 Mass of esophagus K22.[address] R93.2 Anemia D64.9 Refusal of blood transfusions as patient is Uatsdin Z53.1 Prostate enlargement N40.0
--- NOTE | 2023-12-23 13:55 | USCV_ITS ---
Juan R Hagan Age: 63 Gender: M : 1960 Exam Date: 12/23/2023 14:12 Ordering Phys: Luis A Contreras MD Technologist: [place] [facility] [place]: BP: 119 / 70 HR: 95 Rhythm: Sinus Technical Quality: Adequate MEASUREMENTS (Male / Female) Normal Values 2D ECHO LV Diastolic Diameter PLAX 4.5 cm 4.2 - 5.9 / 3.9 - 5.3 cm IVS Diastolic Thickness 1.3 cm 0.6 - 1.0 / 0.6 - 0.9 cm IVS Systolic Thickness 1.5 cm LVPW Diastolic Thickness 1.3 cm 0.6 - 1.0 / 0.6 - 0.9 cm LVPW Systolic Thickness 1.5 cm LVOT Diameter 2.0 cm LV Ejection Fraction 2D Teich 70.3 % LV Ejection Fraction MOD 2C 71.7 % LV Ejection Fraction 2C AL 71.4 % LA Diameter 3.4 cm RA Systolic Volume 4C AL 24.5 ml RA Systolic Volume 4C MOD 23.3 ml Aorta at Sinotubular Diameter 3.7 cm IVC Diameter 1.3 cm M-MODE LA Ao Ratio MM 1.0 AV Cusp Separation MM 2.6 cm DOPPLER AV Peak Velocity 148.0 cm/s LVOT Peak Velocity 151.0 cm/s AV Area Cont Eq vti 4.5 cm squared AV Area Cont Eq pk 3.3 cm squared MV Peak Velocity 89.0 cm/s MV Area PHT 3.6 cm squared Mitral E to A Ratio 1.1 TR Peak Velocity 252.0 cm/s TR Peak Gradient 25.4 mmHg TV Peak E Velocity 95.0 cm/s Right Atrial Pressure 3.0 mmHg Pulmonary Artery Systolic Pressu 28.4 mmHg PV Peak Velocity 114.0 cm/s FINDINGS Left Ventricle Normal left ventricular size and systolic function, EF 71%.no regional wall motion abnormalities. Right Ventricle The right ventricle is normal in size and function. Right Atrium The right atrium is normal in size. Left Atrium The left atrium is normal in size. Mitral Valve Trace mitral valve regurgitation. Aortic Valve No gross abnormalities noted Tricuspid Valve no gross abnormalities noted Pulmonic Valve Pulmonic valve not well visualized. Pericardium Normal pericardium without effusion. Aorta Normal ascending aorta dimension. IVC The inferior vena cava appears normal. CONCLUSIONS Normal left ventricular size and systolic function, EF 71%.no regional wall motion abnormalities. Trace mitral valve regurgitation. Normal cardiac chamber sizes. No intracardiac masses. No pericardial effusion. No similar previous studies are available for comparison Dr Lula Cadena MD [facility] (Electronically Signed) Final Date: 23 December 2023 22:21 S
[2023-12-23] MEDS: sodium chloride 0.9% 1,000 ML 100 ML IV (16:25)
[2023-12-23 16:47] LABS: Creatine Phosphokinase 40 U/L (39-308); Thyroid Stimulating Hormone 2.75 uIU/mL (0.27-4.20)
[2023-12-23 17:25] LABS: Troponin 5 6HR 20.18 ng/L (0-15)
[2023-12-23 17:28] LABS: Troponin 5 6HR Delta -1.82 ng/L (0-12)
[2023-12-23 21:21] LABS: Adenovirus Not Detected (NOT DETECT); Chlamydia Pneumoniae Not Detected (NOT DETECT); Coronavirus 229E,HKU1,NL63,OC4 Not Detected (NOT DETECT); Human Metapneumovirus Not Detected (NOT DETECT); Human Rhinovirus/Enterovirus Not Detected (NOT DETECT); Influenza A Not Detected (NOT DETECT); Influenza A H1 Not Detected (NOT DETECT); Influenza A H1-2009 Not Detected (NOT DETECT); Influenza A H3 Not Detected (NOT DETECT); Influenza B Not Detected (NOT DETECT); Mycoplasma Pneumoniae Not Detected (NOT DETECT); Parainfluenza Virus Type 1 Not Detected (NOT DETECT); Parainfluenza Virus Type 2 Not Detected (NOT DETECT); Parainfluenza Virus Type 3 Not Detected (NOT DETECT); Parainfluenza Virus Type 4 Not Detected (NOT DETECT); Respiratory Syncytial Virus A Not Detected (NOT DETECT); Respiratory Syncytial Virus B Not Detected (NOT DETECT); SARS-COV-2 Not Detected (NOT DETECT)
[2023-12-24] VITALS (20 sets, daily range): BP systolic 107–153; BP diastolic 66–85; PULSE 77–120; RESP 14–22; TEMP 36.2–36.9; O2SAT 91–100; BMI 26.0
[2023-12-24] MEDS: sodium chloride 0.9% 1,000 ML 100 ML IV ×2 (02:10→15:51)
[2023-12-24 05:48] LABS: Basophils % 0.3 %; Eosinophils # 0.1 10^3/uL (0.0-0.8); Eosinophils % 0.8 %; Hematocrit 29.4 % (37-53); Lymphocytes # 1.2 10^3/uL (0.8-4.8); Mean Corpuscular Hemoglobin 25.3 pg (27-33); Mean Corpuscular Volume 81.9 fl (82-101); Mean Platelet Volume 9.7 fL (7.4-10.4); Monocytes # 0.9 10^3/uL (0.2-0.9); Monocytes % 8.2 %; Neutrophils # 8.71 10^3/uL (1.8-7.7); Neutrophils % 79.3 %; Nucleated Red Blood Cells % 0 %; Platelet Count 376 10^3/cmm (157-399); Red Blood Count 3.59 10^6/uL (3.85-5.65); Red Cell Distribution Width 15.5 % (12.1-15.1); White Blood Count 10.98 10^3/uL (3.29-11.43)
[2023-12-24 06:06] LABS: Anion Gap 16.4 (5-19); Blood Urea Nitrogen 30 mg/dL (8-23); Calcium 9.2 mg/dL (8.5-10.5); Carbon Dioxide 18 mmol/L (22-29); Chloride 107 mmol/L (98-107); Creatinine Clr Calc Pharmacy 49.1198; Glomerular Filtration Rate 40.8 mL/min (90-130); Glucose 93 mg/dL (65-115); Osmolality Calculated 290 mOsm/kg (285-295); Potassium 4.4 mmol/L (3.5-5.1); Sodium 137 mmol/L (136-145)
[2023-12-24] MEDS: acetaminophen 325 mg Tablet 650 MG PO (09:14)
[2023-12-24] MEDS: sodium chloride 0.9% 1,000 ML 30 ML IV (13:14)
[2023-12-24 13:29] LABS: Glucose Point of Care 74 mg/dL (70-110)
--- NOTE | 2023-12-24 13:38 | P.ANESASSM_ITS ---
Pre-Anesthetic Assessment Height/Weight: Height 1.8 m Weight 84.822 kg Temp Pulse Resp BP Pulse Ox O2 Del Method 98.1 F 116 H 22 H 125/78 98 Room Air 12/24/23 13:08 12/24/23 13:08 12/24/23 13:08 12/24/23 13:08 12/24/23 13:08 12/24/23 13:08 Operation Date: 12/24/23 13:00 Proposed Procedures p EGD(Not Applicable) - Jerome Fitzgerald DO Familial anesthetic complications: None Was Beta Ana Cristina taken within 24 hours: N/A (Took last yesterday morning) Was Clonidine taken within 24 hours: N/A Last intake: Intake Last Liquid Date 12/23/23 Last Liquid Time 18:00 Last Solid Date 12/23/23 Last Solid Time 05:00 Social No alcohol and No tobacco Exam alert, oriented x 3, clear to auscultation bilaterally and regular rate & rhythm Airway Submandibular: within normal limits Cervical ROM: within normal limits Mallampati: Class II Dentition: chipped (Lower left tooth) and full History/ROS No significant history except as noted and No significant complaints Pulmonary None reported CV/HEM Anemia and Hypertension Jehovas Witness: No blood products Chronic Renal Insufficiency (Stage 3B) Hepatic None reported GI Gastroesophageal Reflux Disease Metabolic Hyperlipidemia Musc/skel Lower Back Pain and Osteoarthritis/DJD Neuropsych Anxiety, Depression, Neuropathy and Syncope (Yesterday) Anesthetic Plan ASA status: 3 Anesthesia: Anesthesia Evaluation and General Risk of > 500 ml blood loss (7ml/kg in children): No Medications/Allergies Home Medications Medication Instructions Recorded Confirmed Last Taken Type albuterol sulfate 90 mcg/actuation 2 puff inhalation Q4H PRN 11/18/23 12/23/23 Unknown Rx aerosol inhaler (Ventolin HFA) shortness of breath or wheezing #8.5 grams allopurinol 300 mg tablet 150 mg (1/2 x 300 mg) PO DAILY 11/18/23 12/23/23 12/23/23 Rx Gout #90 tabs amlodipine 10 mg tablet (Norvasc) 10 mg PO DAILY 90 days #90 tabs 11/18/23 12/23/23 12/23/23 Rx atorvastatin 80 mg tablet 80 mg PO DAILY chol & fats #90 tabs 11/18/23 12/23/23 Unknown Rx cyclobenzaprine 5 mg tablet 5 mg PO BID PRN muscle spasm 60 11/18/23 12/23/23 Unknown Rx days #120 tabs diclofenac sodium 1 % topical gel 4 g topical QID PRN left shoulder 11/18/23 12/23/23 Unknown Rx pain 30 days #100 grams gabapentin 300 mg capsule 300 mg PO DAILY 90 days #90 caps 11/18/23 12/23/23 12/22/23 Rx loratadine 10 mg tablet (Claritin) 10 mg PO DAILY allergies #90 tabs 11/18/23 12/23/23 Unknown Rx losartan 100 mg tablet 100 mg PO DAILY BP 90 days #90 tabs 11/18/23 12/23/23 12/23/23 Rx metoprolol tartrate 100 mg tablet 100 mg PO BID BP 30 days #180 tabs 11/18/23 12/23/23 12/23/23 Rx omeprazole magnesium 20 mg 20 mg PO DAILY PRN acid reflux #90 11/18/23 12/23/23 Unknown Rx tablet,delayed release (Prilosec tabs OTC) Allergies Allergy/AdvReac Type Severity Reaction Status Date / Time hydrochlorothiazide Allergy Intermediate ADR-Muscle Verified 11/18/23 08:56 Pain Current Medications Generic Name Dose Route Start Last Admin Trade Name Freq PRN Reason Stop Dose Admin Acetaminophen 650 mg 12/23/23 16:04 12/24/23 09:14 Acetaminophen 325 Mg Tablet PO 650 mg Q6H PRN Administration Mild/Mod Pain Or Temp >/= 101 Sodium Chloride 1,000 mls @ 100 mls/hr 12/23/23 16:04 12/24/23 12:33 Sodium Chloride 0.9% IV Infused .Q10H LELE Infusion Sodium Chloride 1,000 mls @ 30 mls/hr 12/24/23 13:15 12/24/23 13:14 Sodium Chloride 0.9% IV 12/25/23 13:14 30 mls/hr .Q24H LELE Administration PFSH Anesthesia Medical History (Updated 12/23/23 @ 14:05 by Luis A Contreras MD) Refusal of blood transfusions as patient is Holiness COPD (chronic obstructive pulmonary disease) Former cigarette smoker Encounter for health maintenance examination in adult Hematuria, microscopic BPH (benign prostatic hyperplasia) CKD (chronic kidney disease) stage 3, GFR 30-59 ml/min 11/18/2023 creatinine 1.8 with a GFR 38 Muscle spasms of both lower extremities Hypertension Hyperlipidemia GERD (gastroesophageal reflux disease) Chronic gout Osteoarthritis Surgical History History of tonsillectomy History of hand surgery right Family History Brother Cancer Father Lung disease Social History Smoking and tobacco/nicotine status: former use of tobacco/nicotine Alcohol intake: current Alcohol intake frequency: holidays/special occasions only Substance/Drug Use: never Data Anesthesia 12/24/23 05:41 12/24/23 05:41 Short CBC 12/23/23 12/24/23 Range/Units 09:58 05:41 WBC 14.81 H 10.98 (3.29-11.43) 10^3/uL Hgb 10.20 L 9.10 L (11.27-16.99) g/dL Hct 33.2 L 29.4 L (37-53) % MCV 82.2 81.9 L (82-101) fl Plt Count 435 H 376 (157-399) 10^3/cmm Neut % (Auto) 81.1 79.3 % Neut # (Auto) 12.01 H 8.71 H (1.8-7.7) 10^3/uL BMP 12/23/23 12/24/23 09:58 05:41 Sodium 133 L 137 Potassium 5.0 4.4 Chloride 99 107 Carbon Dioxide 18 L 18 L BUN 38 H 30 H Creatinine 2.7 H 1.7 H Glucose 121 H 93 Calcium 9.4 9.2 Cardiac Enzymes 12/23/23 12/23/23 12/23/23 Range/Units 09:58 12:00 16:33 Creatine Kinase 40 (39-308) U/L Troponin T Baseline 22 H (0-15) ng/L Troponin T 120 Minute 17.15 H (0-15) ng/L Delta Troponin T -4.85 L (0-10) ABS# Troponin T Hi Sens 6Hr 20.18 H (0-15) ng/L Troponin T Hi Sens 6Hr Delta -1.82 L (0-12) ng/L Liver Function 12/23/23 Range/Units 09:58 Total Bilirubin 0.3 (0.15-1.2) mg/dL AST 12 (0-40) U/L ALT 8 (0-41) U/L Alkaline Phosphatase 70 (40-130) U/L Albumin 3.9 (3.5-5.2) g/dL Urine 12/23/23 Range/Units 11:41 Urine Color Yellow (Yellow) Urine Appearance Clear (CLEAR) Urine pH 5 (5-7) Ur Specific [place] 1.010 (1.005-1.030) Urine Protein Trace (Negative) Urine Glucose (UA) Norm (Normal) Urine Ketones Negative (Negative) Urine Nitrate Negative (Negative) Urine Bilirubin Neg (Negative) Ur Leukocyte Esterase Negative (Negative) Urine RBC 0-4 H (0-2) /hpf Urine WBC 0-4 H (0-5) /hpf COVID Results 12/23/23 18:23 Coronavirus 229E (PCR) Not detected SARS-CoV-2 (PCR) Not detected Cardiac Studies: 2 Echocardiogram 12/23/23
--- NOTE | 2023-12-24 14:15 | P.CONIM_ITS ---
Providers/Reason For Consult 2 Consulting Physician/Specialty*: Dr. Jerome Fitzgerald, DO/General surgery Reason for Consult*: Distal esophageal mass seen on CT Attending Physician: Luis A Contreras Primary Care Provider: Brad Gilmore MD History of Present Illness History of Present Illness Juan R Hagan is a 63 year old male who presented to the hospital after syncopal episode at work. He reports that the fall was witnessed and that he did hit the left side of his head in the fall. He denies any current headache, blurred vision and/or dizziness. He reports that for the past 3 weeks he has been having epigastric abdominal pain that feels like he has been punched in the stomach. The pain does not radiate. Palpation and eating make the pain worse. Nothing seems to make the pain better. He denies any nausea, emesis, diarrhea, constipation, hematochezia and/or melena. He does report heartburn. He says that he takes Nexium and Prilosec daily for this. He reports a 10 pound weight loss in the last 2 weeks. He reports having chills at night but denies any current night sweats. A CT of the abdomen pelvis shows a distal esophageal mass with surrounding lymphadenopathy and possible hepatic masses as well. He is a Gnosticism and is refusing all blood products. Review of Systems 2 General: Reports: 10 or more systems reviewed and unremarkable except in HPI and below Medications/Allergies Home Medications Medication Instructions Recorded Confirmed Last Taken Type albuterol sulfate 90 mcg/actuation 2 puff inhalation Q4H PRN 11/18/23 12/23/23 Unknown Rx aerosol inhaler (Ventolin HFA) shortness of breath or wheezing #8.5 grams allopurinol 300 mg tablet 150 mg (1/2 x 300 mg) PO DAILY 11/18/23 12/23/23 12/23/23 Rx Gout #90 tabs amlodipine 10 mg tablet (Norvasc) 10 mg PO DAILY 90 days #90 tabs 11/18/23 12/23/23 12/23/23 Rx atorvastatin 80 mg tablet 80 mg PO DAILY chol & fats #90 tabs 11/18/23 12/23/23 Unknown Rx cyclobenzaprine 5 mg tablet 5 mg PO BID PRN muscle spasm 60 11/18/23 12/23/23 Unknown Rx days #120 tabs diclofenac sodium 1 % topical gel 4 g topical QID PRN left shoulder 11/18/23 12/23/23 Unknown Rx pain 30 days #100 grams gabapentin 300 mg capsule 300 mg PO DAILY 90 days #90 caps 11/18/23 12/23/23 12/22/23 Rx loratadine 10 mg tablet (Claritin) 10 mg PO DAILY allergies #90 tabs 11/18/23 12/23/23 Unknown Rx losartan 100 mg tablet 100 mg PO DAILY BP 90 days #90 tabs 11/18/23 12/23/23 12/23/23 Rx metoprolol tartrate 100 mg tablet 100 mg PO BID BP 30 days #180 tabs 11/18/23 12/23/23 12/23/23 Rx omeprazole magnesium 20 mg 20 mg PO DAILY PRN acid reflux #90 11/18/23 12/23/23 Unknown Rx tablet,delayed release (Prilosec tabs OTC) Allergies Allergy/AdvReac Type Severity Reaction Status Date / Time hydrochlorothiazide Allergy Intermediate ADR-Muscle Verified 11/18/23 08:56 Pain Current Medications Generic Name Dose Route Start Last Admin Trade Name Freq PRN Reason Stop Dose Admin Acetaminophen 650 mg 12/23/23 16:04 12/24/23 09:14 Acetaminophen 325 Mg Tablet PO 650 mg Q6H PRN Administration Mild/Mod Pain Or Temp >/= 101 Sodium Chloride 1,000 mls @ 100 mls/hr 12/23/23 16:04 12/24/23 12:33 Sodium Chloride 0.9% IV Infused .Q10H LELE Infusion Sodium Chloride 1,000 mls @ 30 mls/hr 12/24/23 13:15 12/24/23 13:14 Sodium Chloride 0.9% IV 12/25/23 13:14 30 mls/hr .Q24H LELE Administration PFSH Acute 2 PFSH: Medical History Refusal of blood transfusions as patient is Gnosticism COPD (chronic obstructive pulmonary disease) Former cigarette smoker Encounter for health maintenance examination in adult Hematuria, microscopic BPH (benign prostatic hyperplasia) CKD (chronic kidney disease) stage 3, GFR 30-59 ml/min 11/18/2023 creatinine 1.8 with a GFR 38 Muscle spasms of both lower extremities Hypertension Hyperlipidemia GERD (gastroesophageal reflux disease) Chronic gout Osteoarthritis Surgical History History of tonsillectomy History of hand surgery right Family History Brother Cancer Father Lung disease Social History Smoking and tobacco/nicotine status: former use of tobacco/nicotine Alcohol intake: current Alcohol intake frequency: holidays/special occasions only Substance/Drug Use: never Vitals/I&O/Wt Last Vital Signs Temp 98.1 F 12/24/23 13:08 Pulse 116 H 12/24/23 13:08 Resp 22 H 12/24/23 13:08 BP 125/78 12/24/23 13:08 Pulse Ox 98 12/24/23 13:08 O2 Del Method Room Air 12/24/23 13:08 12/23/23 12/24/23 12/24/23 22:59 06:59 14:59 Intake Total 1000 / 1000 975 / 1975 1000 / 1000 Output Total 900 / 900 Balance 1000 / 1000 75 / 1075 1000 / 1000 Weight last 48 hrs Weight 187 lb Weight 187 lb Weight 187 lb Physical Exam 2 Narrative: General : Patient is well developed , no acute distress, oriented x3 Head : Normal cephalic, a-traumatic. Ears : Pinnae and external canal are normal. Hearing is normal. Eyes : PERRLA, Sclera and injection are normal. No conjunctival discharge. Nose : Mucous membranes are without erythema. Throat : buccal mucosa is normal, gums are without significant recession or hypertrophy. Lungs : Equal chest rise bilaterally, no use of accessory muscles, trachea is midline. Cor : Rate and rhythm are normal. Abdomen : Soft, ND, mild epigastric tenderness, no g/r/m Extremities : No edema, no cyanosis or clubbing, dorsalis pedis pulses are present bilaterally, non-tender to palpation of calves. Upper extremities are normal bilaterally. Back : non-tender to palpation, no CVA tenderness. Neuro : CN II - XII intact, Upper and lower extremities have equal and full strength Data 12/24/23 05:41 12/24/23 05:41 A&P Assessment and plan (1) Mass of esophagus: (2) GERD (gastroesophageal reflux disease): Plan EGD The risks and benefits of the procedure, including bleeding, infection, intestinal perforation requiring surgery, missed lesion were explained to the patient. The patient is understanding of the risks and wishes to proceed. I explicitly explained to him that there is a risk of significant bleeding from biopsying of a potential mass. He is explicitly refusing blood products. Coding Level of Care Code 78471 Diagnoses Mass of esophagus K22.89 GERD (gastroesophageal reflux disease) K21.9
--- NOTE | 2023-12-24 15:25 | ANE.PACU2 ---
Inpatient post-anesthesia follow up: Airway intact: Yes Vital signs: Temperature 97.2 F Pulse Rate [Orthos tatic 96 Standing] Pulse Rate [Orthos tatic 72 Sitting] Pulse Rate [Orthos tatic Lying 73 Right] Pulse Rate 100 Respiratory Rate 16 Blood Pressure [Or thostatic 120/72 Standing] Blood Pressure [Or thostatic 112/70 Sitting Right Arm] Blood Pressure [Or thostatic 111/69 Lying Right Arm] Blood Pressure 107/74 Pulse Oximetry 100 Oxygen Delivery Me thod Room Air Oxygen Flow Rate Fraction of Inspir ed Oxygen Hydration adequate: Yes Nausea and vomiting: No Pain level: 1 Mental status: Baseline
[2023-12-24] MEDS: tranexamic acid 1,000 MG/100 ML PREMIX 600 MG IV (15:55)
--- NOTE | 2023-12-24 20:33 | P.PN_ITS ---
Subjective 2 Subjective: He reports he is doing okay today. No syncopal or presyncopal episodes. Denies dizziness. Has not had any obvious bleeding. Vitals/I&O/Wt Last Vital Signs Temp 97.8 F 12/24/23 19:39 Pulse 120 H 12/24/23 19:39 Resp 18 12/24/23 19:39 BP 133/71 12/24/23 19:39 Pulse Ox 91 12/24/23 19:39 O2 Del Method Room Air 12/24/23 18:30 12/24/23 12/24/23 12/24/23 06:59 14:59 22:59 Intake Total 975 / 1975 1000 / 1000 1380 / 2380 Output Total 900 / 900 0 / 0 Balance 75 / 1075 1000 / 1000 1380 / 2380 Weight last 48 hrs Weight 84.822 kg Weight 84.822 kg Weight 84.822 kg Physical Exam 2 Narrative: Sitting up in bed. Accompanied by family. Const: COMMON NORMALS: patient oriented x3 and alert GENERAL APPEARANCE: c ooperative ORIENTATION/CONSCIOUSNESS: Yes awake HENMT: COMMON NORMALS: oropharynx normal Neck/C-Spine: COMMON NORMALS: no JVD Resp: COMMON NORMALS: normal respiratory effort and clear to auscultation bilaterally AUSCULTATION: clear to auscultation bilaterally Cardio: COMMON NORMALS: no JVD, regular rhythm, S1 normal heart sound present, S2 normal heart sound present and No murmurs present (Cardio) RHYTHM: regular rhythm HEART SOUNDS: S1 normal heart sound present and S2 normal heart sound present GI: COMMON NORMALS: Normal to inspection, nondistended, normoactive bowel sounds present, Soft to palpation and non-tender PALPATION: Yes Soft to palpation Extremity: COMMON NORMALS: no joint enlargement and no pedal edema Neuro: COMMON NORMALS: patient oriented x3 and moves all extremities S ENSORIUM/ORIENTATION: Yes alert Skin: COMMON NORMALS: no rashes or lesions noted GENERAL SKIN EXAM: no rashes or lesions noted Data 12/24/23 05:41 12/24/23 05:41 A&P Assessment and plan (1) Anemia: Reviewed vitals, CBC, noted further decrease in hemoglobin down to 9.1 with acute blood loss anemia. Discussed with him. At risk of worsening potentially life-threatening anemia, does not accept blood products. Will increase Protonix up to twice daily. Recheck blood counts again in the morning. Check INR. Check iron studies. Reviewed EGD report, noted mass in distal esophagus as well as fundus. Platelets reviewed, WNL. Discussed with case management coordinator. (2) Mass of esophagus: EGD today, reviewed report. Escalate PPI dose to 40 mg every 12 hours. Status post mass biopsy, follow-up with oncology. Masslike thickening of distal esophagus, suspected malignancy, possible metastatic lesions to the liver. He would like not to delay diagnosis and surgery is consulted in the ER for additional assessment and EGD with biopsy. He will need to follow-up with oncology. He is Yazdanism and does not accept blood products. Discussed with him potential risk of bleeding with EGD and biopsy History of smoking. Additionally noted acute anemia, hemoglobin down to 10.2. Continue PPI. He has been having some odynophagia. Reduced appetite and oral intake. No signs of overt obstruction. (3) Syncope: Discussed with him and family, so far without recurrence of presyncope or syncope, blood pressures improved. Kidney function appears to be improving on review of vitals, BMP, antihypertensives have been on hold. Resuming metoprolol at lower dose as he is starting is some rebound tachycardia. Echocardiogram reviewed, largely unremarkable, trace MVR. Continue gentle IV hydration with monitoring for risk of fluid overload. Possible cardiogenic shock, hypotensive, possibly secondary to toxic effects of antihypertensives in the setting of ERIKA. Reviewed orthostatic vitals as well. Does not orthostatic, but heart rate did come up on standing. He is noted to have ERIKA on CKD. Was hypotensive initially on assessment by EMS but did respond to small fluid bolus. Discussed with him and family possibility that syncope may have occurred possibly secondary to medication toxicity with hypotension in the setting of ERIKA with him continue to take his antihypertensives. Hold antihypertensives for now. Monitor blood pressure. Reassess renal function. Additionally he does have cardiac risk factors including his age, history of hypertension, hyperlipidemia, former smoker. So far no evidence of ischemia. Will assess TTE. Monitor on telemetry. Consider event monitor. Qualifiers: Syncope type: unspecified Qualified Code(s): R55 - Syncope and collapse (4) Acute kidney injury superimposed on CKD: Reviewed BUN, creatinine, potassium, bicarb. Improving. Continue gentle IV hydration.Follow-up renal function requested. CT reviewed, unremarkable. Avoid NSAIDs even topical ones which could still have some systemic absorption. CT scan, no hydronephrosis. Possibly prerenal with hypotension on presentation, has continued taking antihypertensives. Hold antihypertensives for now. Gentle IV fluid challenge. Reassess renal function. (5) Leukocytosis: Reviewed CBC, leukocytosis resolved. Possibly reactive to malignancy, possibly secondary to anemia. Unclear cause of leukocytosis, possibly related to lower esophageal masslike findings, with possible metastatic disease to the liver. He reports has had some chills. Will obtain respiratory viral panel. Reviewed chest x-ray, UA, not suggestive of acute infection. (6) Abnormal liver CT: Possible diffuse metastatic disease of the liver. Liver parameters appear unremarkable. (7) Refusal of blood transfusions as patient is Yazdanism: (8) Prostate enlargement: Incidentally noted on CT, follow-up with primary provider, consider PSA. Plan Hiatal hernia Former smoker HTN: Hold antihypertensives as has been hypotensive HLD: With ERIKA check CK hold statin for now Attestations 2 Medical Necessity Statement*: Continue hospitalization for reassessment of blood counts with acute anemia with as of distal esophagus and fundus. Diagnoses Anemia D64.9 Mass of esophagus K22.89 Syncope R55 Syncope type: unspecified Acute kidney injury superimposed on CKD N17.9; N18.9 Leukocytosis D72.[address] R93.2 Refusal of blood transfusions as patient is Yazdanism Z53.1 Prostate enlargement N40.0
[2023-12-24] MEDS: pantoprazole 40 mg SDV IVP (21:00)
[2023-12-24] MEDS: metoprolol tartrate 50 mg Tablet PO (21:01)
[2023-12-24 21:19] LABS: INR 1.08 (0.8-1.2)
[2023-12-25] VITALS (7 sets, daily range): BP systolic 123–131; BP diastolic 74–75; PULSE 80–104; RESP 16–18; TEMP 36.4–36.5; O2SAT 97–99
[2023-12-25] MEDS: sodium chloride 0.9% 1,000 ML 100 ML IV (02:27)
[2023-12-25 05:46] LABS: Basophils % 0.1 %; Hematocrit 28.6 % (37-53); Lymphocytes # 0.6 10^3/uL (0.8-4.8); Lymphocytes % 6.6 %; Mean Corpuscular HGB Conc 31.5 g/dL (30-55); Mean Corpuscular Hemoglobin 25.7 pg (27-33); Mean Corpuscular Volume 81.7 fl (82-101); Mean Platelet Volume 10.2 fL (7.4-10.4); Monocytes # 0.4 10^3/uL (0.2-0.9); Monocytes % 4.1 %; Neutrophils # 7.77 10^3/uL (1.8-7.7); Neutrophils % 88.7 %; Nucleated Red Blood Cells % 0 %; Platelet Count 392 10^3/cmm (157-399); Red Cell Distribution Width 15.3 % (12.1-15.1); White Blood Count 8.76 10^3/uL (3.29-11.43)
[2023-12-25 06:08] LABS: Ferritin 156 ng/mL (30-400)
[2023-12-25 06:09] LABS: Anion Gap 16.5 (5-19); Blood Urea Nitrogen 23 mg/dL (8-23); Calcium 9.2 mg/dL (8.5-10.5); Carbon Dioxide 19 mmol/L (22-29); Chloride 105 mmol/L (98-107); Creatinine Clr Calc Pharmacy 59.6455; Glucose 129 mg/dL (65-115); Osmolality Calculated 287 mOsm/kg (285-295); Potassium 4.5 mmol/L (3.5-5.1); Sodium 136 mmol/L (136-145)
[2023-12-25 06:10] LABS: Iron 22 ug/dL (59-158); Percent Saturation 10.1 % (20-50); Total Iron Binding Capacity 216 mcg/dl; Unsaturated Iron Binding 194 ug/dL (112-347)
[2023-12-25] MEDS: metoprolol tartrate 50 mg Tablet PO (07:50)
[2023-12-25] MEDS: pantoprazole 40 mg SDV IVP (07:50)
--- NOTE | 2023-12-25 23:09 | P.DS_ITS ---
Discharge Providers Date of Admission: 12/23/23 14:14 Date of Discharge: December 25, 2023 Attending Provider at Admission: Luis A Contreras Attending Provider at Discharge: Luis A Contreras Primary Care Provider: Brad Gilmore MD Diagnoses at Discharge Discharge Diagnosis (1) Anemia: Status: Acute (2) Mass of esophagus: Status: Acute (3) Syncope: Status: Acute Qualifiers: Syncope type: unspecified Qualified Code(s): R55 - Syncope and collapse (4) Acute kidney injury superimposed on CKD: Status: Acute (5) Leukocytosis: Status: Acute (6) Abnormal liver CT: Status: Acute (7) Refusal of blood transfusions as patient is Episcopalian: Status: Acute (8) Prostate enlargement: Status: Acute Reason for Visit Reason for Visit: Syncope Brief History: 63-year-old gentleman with history of CK D, HTN, HLD, former smoker, came in after feeling unwell over the last 3 weeks or so, was having what he thought was a flare of his GERD, having difficulty with swallowing, odynophagia, epigastric abdominal pain, poor appetite and oral intake, and at work was feeling lightheaded today, and had a syncopal episode when he was trying to find a place to sit down. He otherwise has been having some mild chills, denies other problems apart from some mild burning with urination. In ER he is found to be afebrile, with leukocytosis 14.8, ERIKA and CKD, BUN 38, creatinine 2.7, troponin baseline 22, 2-hour 17.15, unremarkable UDS. UA with 0-4 WBC, negative leukocyte Estrace and nitrate. Chest x-ray without acute findings. CT abdomen pelvis with diffuse thickening involving distal esophagus with masslike lobulated soft tissue at the GE junction suspicious for neoplasm. Masslike lymphadenopathy in the upper abdomen. Suspected diffuse hepatic metastasis. Enlarged prostate measuring 4.6 x 5 cm. Chronic spondylolysis with grade 1 anterolisthesis L5 on S1. Patient states he is a [employer] and does not take blood products. Hospital Course Hospital Course She was started on bowel rest initially, PPI, antihypertensives were held, renal function follow-up. CT abdomen pelvis did not show hydronephrosis. He received gentle IV hydration with renal function noted improving. Blood pressure low on presentation has gradually improved. He had no recurrence of presyncopal or syncopal episode. He did have some rebound tachycardia from being off beta-bloc ker and was resumed on lower dose metoprolol. Other antihypertensives are not continued at current time both due to recovering from ERIKA and soft blood pressure/syncope prior to presentation. He otherwise had no arrhythmia and echocardiogram was unremarkable. He did have acute anemia likely secondary to bleeding mass found in his distal esophagus and fundus on EGD. This was biopsied during the procedure. He is referred for follow-up with surgery and oncology. As mentioned earlier there is concern for possible metastatic spread to the liver as discussed with him. He would like to pursue further diagnosis and options for treatment. His blood counts were thoroughly monitored and appeared to stabilize around 9. He is feeling well today and comfortable returning home with outpatient follow-up. We discussed with him avoidance of any NSAIDs including topicals. Diclofenac is discontinued. He does not drink alcohol. Avoiding medications or supplements that may thin his blood. He is given prescription for PPI, sucralfate and we also discussed with him iron therapy. Please also follow-up incidental findings of hiatal hernia and enlarged prostate, consider PSA. Discharge Data Studies Completed and Pending Completed Studies During Hospitalization Category Date Time Status CT abdomen pelvis wo con [id number] Urgent Cat Scan 12/23/23 09:52 Completed XR chest 1V portable [id number] Urgent Exams 12/23/23 09:40 Completed CV. echo complete* [id number] Stat Ultrasound 12/23/23 13:55 Completed Pending at discharge Category Date Time Status Pathology: Surgical [PTH] Routine Pth 12/24/23 14:46 Received Laboratory Results WBC 8.76 10^3/uL (3.29-11.43) 12/25/23 05:24 RBC 3.50 10^6/uL (3.85-5.65) L 12/25/23 05:24 Hgb 9.00 g/dL (11.27-16.99) L 12/25/23 05:24 Hct 28.6 % (37-53) L 12/25/23 05:24 MCV 81.7 fl (82-101) L 12/25/23 05:24 MCH 25.7 pg (27-33) L 12/25/23 05:24 MCHC 31.5 g/dL (30-55) 12/25/23 05:24 RDW 15.3 % (12.1-15.1) H 12/25/23 05:24 Plt Count 392 10^3/cmm (157-399) 12/25/23 05:24 MPV 10.2 fL (7.4-10.4) 12/25/23 05:24 Neut % (Auto) 88.7 % 12/25/23 05:24 Lymph % (Auto) 6.6 % 12/25/23 05:24 Gilliam % (Auto) 4.1 % 12/25/23 05:24 Eos % (Auto) 0.0 % 12/25/23 05:24 Baso % (Auto) 0.1 % 12/25/23 05:24 Neut # (Auto) 7.77 10^3/uL (1.8-7.7) H 12/25/23 05:24 Lymph # (Auto) 0.6 10^3/uL (0.8-4.8) L 12/25/23 05:24 Gilliam # (Auto) 0.4 10^3/uL (0.2-0.9) 12/25/23 05:24 Eos # (Auto) 0.0 10^3/uL (0.0-0.8) 12/25/23 05:24 Baso # (Auto) 0.0 10^3/uL (0.0-0.1) 12/25/23 05:24 Nucleated RBC % (auto) 0 % 12/25/23 05:24 Nucleated RBCs # 0.0 /100WBC 12/25/23 05:24 PT 14.40 SECONDS (12.1-14.9) 12/24/23 21:04 INR 1.08 (0.8-1.2) 12/24/23 21:04 Sodium 136 mmol/L (136-145) 12/25/23 05:24 Potassium 4.5 mmol/L (3.5-5.1) 12/25/23 05:24 Chloride 105 mmol/L (98-107) 12/25/23 05:24 Carbon Dioxide 19 mmol/L (22-29) L 12/25/23 05:24 Anion Gap 16.5 (5-19) 12/25/23 05:24 BUN 23 mg/dL (8-23) 12/25/23 05:24 Creatinine 1.4 mg/dL (0.7-1.2) H 12/25/23 05:24 GFR Calculation 51.0 mL/min (90-130) L 12/25/23 05:24 Glucose 129 mg/dL (65-115) H 12/25/23 05:24 POC Glucose 74 mg/dL (70-110) 12/24/23 13:25 Calculated Osmolality 287 mOsm/kg (285-295) 12/25/23 05:24 Calcium 9.2 mg/dL (8.5-10.5) 12/25/23 05:24 Iron 22 ug/dL (59-158) L 12/25/23 05:24 TIBC 216 mcg/dl 12/25/23 05:24 % Saturation 10.1 % (20-50) L 12/25/23 05:24 Unsat Iron Binding 194 ug/dL (112-347) 12/25/23 05:24 Ferritin 156 ng/mL (30-400) 12/25/23 05:24 Total Bilirubin 0.3 mg/dL (0.15-1.2) 12/23/23 09:58 AST 12 U/L (0-40) 12/23/23 09:58 ALT 8 U/L (0-41) 12/23/23 09:58 Alkaline Phosphatase 70 U/L (40-130) 12/23/23 09:58 Creatine Kinase 40 U/L (39-308) 12/23/23 09:58 Troponin T Baseline 22 ng/L (0-15) H 12/23/23 09:58 Troponin T 120 Minute 17.15 ng/L (0-15) H 12/23/23 12:00 Delta Troponin T -4.85 ABS# (0-10) L 12/23/23 12:00 Troponin T Hi Sens 6Hr 20.18 ng/L (0-15) H 12/23/23 16:33 Troponin T Hi Sens 6Hr Delta -1.82 ng/L (0-12) L 12/23/23 16:33 Total Protein 6.6 g/dL (6.6-8.7) 12/23/23 09:58 Albumin 3.9 g/dL (3.5-5.2) 12/23/23 09:58 Globulin 2.7 g/dL (1.3-4.6) 12/23/23 09:58 TSH 2.75 uIU/mL (0.27-4.20) 12/23/23 09:58 Urine Color Yellow (Yellow) 12/23/23 11:41 Urine Appearance Clear (CLEAR) 12/23/23 11:41 Urine pH 5 (5-7) 12/23/23 11:41 Ur Specific [place] 1.010 (1.005-1.030) 12/23/23 11:41 Urine Protein Trace (Negative) 12/23/23 11:41 Urine Glucose (UA) Norm (Normal) 12/23/23 11:41 Urine Ketones Negative (Negative) 12/23/23 11:41 Urine Blood Neg (Negative) 12/23/23 11:41 Urine Nitrate Negative (Negative) 12/23/23 11:41 Urine Bilirubin Neg (Negative) 12/23/23 11:41 Urine Urobilinogen Norm mg/dL (Negative) 12/23/23 11:41 Ur Leukocyte Esterase Negative (Negative) 12/23/23 11:41 Urine RBC 0-4 /hpf (0-2) H 12/23/23 11:41 Urine WBC 0-4 /hpf (0-5) H 12/23/23 11:41 Ur Squamous Epith Cells 0-4 /hpf (0-5) H 12/23/23 11:41 Amorphous Sediment Trace /hpf 12/23/23 11:41 Urine Bacteria 1+ /hpf (NONE) H 12/23/23 11:41 Hyaline Casts 0-4 /lpf H 12/23/23 11:41 Fine Granular Casts 0-4 /lpf H 12/23/23 11:41 Urine Mucus Trace /hpf 12/23/23 11:41 Urine Opiates Screen Negative ng/mL (Negative) 12/23/23 11:41 Ur Barbiturates Screen Negative ng/mL (Negative) 12/23/23 11:41 Ur Phencyclidine Scrn Negative ng/mL (Negative) 12/23/23 11:41 Ur Amphetamines Screen Negative ng/mL (Negative) 12/23/23 11:41 U Benzodiazepines Scrn Negative ng/mL (Negative) 12/23/23 11:41 Urine Cocaine Screen Negative ng/mL (Negative) 12/23/23 11:41 U Marijuana (THC) Screen Negative ng/mL (Negative) 12/23/23 11:41 Adenovirus (PCR) Not detected (NOT DETECT) 12/23/23 18:23 C. pneumoniae DNA (PCR) Not detected (NOT DETECT) 12/23/23 18:23 Coronavirus 229E (PCR) Not detected (NOT DETECT) 12/23/23 18:23 Human Metapneumovir PCR Not detected (NOT DETECT) 12/23/23 18:23 Influenza A (H1) PCR Not detected (NOT DETECT) 12/23/23 18:23 Influ A (H1/09) PCR Not detected (NOT DETECT) 12/23/23 18:23 Influenza A (H3) PCR Not detected (NOT DETECT) 12/23/23 18:23 Influenza Type A (PCR) Not detected (NOT DETECT) 12/23/23 18:23 Influenza Type B (PCR) Not detected (NOT DETECT) 12/23/23 18:23 M. pneumoniae (PCR) Not detected (NOT DETECT) 12/23/23 18:23 Parainfluenza 1 (PCR) Not detected (NOT DETECT) 12/23/23 18:23 Parainfluenza 2 (PCR) Not detected (NOT DETECT) 12/23/23 18:23 Parainfluenza 3 (PCR) Not detected (NOT DETECT) 12/23/23 18:23 Parainfluenza 4 (PCR) Not detected (NOT DETECT) 12/23/23 18:23 RSV Type A (PCR) Not detected (NOT DETECT) 12/23/23 18:23 RSV Type B (PCR) Not detected (NOT DETECT) 12/23/23 18:23 Entero/Rhino (PCR) Not detected (NOT DETECT) 12/23/23 18:23 SARS-CoV-2 (PCR) Not detected (NOT DETECT) 12/23/23 18:23 Vitals Last Vital Signs Temp 97.7 F 12/25/23 13:38 Pulse 87 12/25/23 13:38 Resp 17 12/25/23 13:38 BP 127/75 12/25/23 13:38 Pulse Ox 99 12/25/23 13:38 O2 Del Method Room Air 12/25/23 09:07 Discharge Plan Discharge Patient Disposition: Home Condition: Stable Prescriptions: New Protonix 40 mg tablet,delayed release (DR/EC) 40 mg PO BID 42 Days Qty: 84 0RF sucralfate 1 gram tablet 1 g PO BID 56 Days Qty: 112 0RF ferrous sulfate 325 mg (65 mg iron) tablet 325 mg PO EVERY OTHER DAY Qty: 90 0RF Continued albuterol sulfate [Ventolin HFA] 90 mcg/actuation HFA aerosol inhaler 2 puff inhalation Q4H PRN (Reason: shortness of breath or wheezing) Qty: 8.5 1RF allopurinol 300 mg tablet 150 mg PO DAILY Qty: 90 1RF atorvastatin 80 mg tablet 80 mg PO DAILY Qty: 90 1RF cyclobenzaprine 5 mg tablet 5 mg PO BID PRN (Reason: muscle spasm) 60 Days Qty: 120 1RF gabapentin 300 mg capsule 300 mg PO DAILY 90 Days Qty: 90 1RF loratadine [Claritin] 10 mg tablet 10 mg PO DAILY Qty: 90 3RF Changed metoprolol tartrate 100 mg tablet 50 mg PO BID 30 Days Qty: 180 1RF Discontinued amlodipine [Norvasc] 10 mg tablet 10 mg PO DAILY 90 Days Qty: 90 1RF diclofenac sodium 1 % gel 4 g TOPICAL QID PRN (Reason: left shoulder pain) 30 Days Qty: 100 3RF Rx Instructions: left shoulder pain losartan 100 mg tablet 100 mg PO DAILY 90 Days Qty: 90 1RF Prilosec OTC 20 mg tablet,delayed release (DR/EC) 20 mg PO DAILY PRN (Reason: acid reflux) Qty: 90 1RF Discharge Orders: Discharge Order (Routine); Ordered 12/25/23 Ordered By: Luis A Contreras Referrals: Jerome Fitzgerald DO [Physician] - 12/29/23 10:00 am Brad Gilmore MD [Primary Care Provider] - 12/30/23 8:15 am Frank King MD [Hospitalist] - 1 week (We have notified your physician's clinic of the need for a follow-up appointment to be scheduled. If you have not heard from them within the next 2 business days, please call them directly. ) Discharge Diet: Full LIquid Patient Instructions: Sucralfate (By mouth) (Carafate), Pantoprazole (By mouth) (Protonix), Hiatal Hernia (GEN), Gastrointestinal Bleeding (GEN), Enlarged Prostate (BPH) (GEN), GI Discharge Instructions, Pain Management Activity Restrictions/Additional Instructions: Follow-up with your primary provider, surgery as well as with oncology with regards to finding of a mass in the lower part of the swallowing tube (esophagus) and in the stomach suspicious for cancer with concern for possible spread to the liver. Follow-up with them regarding biopsy results and next steps. Have your primary doctor also reassess your blood counts due to anemia and gradual blood loss. Due to iron deficiency you are started on iron supplementation as well. Continue Protonix twice daily, you are also started on sucralfate. Avoid any NSAIDs including topical NSAIDs (like diclofenac). Avoid any alcohol or any other medications or substances that may make bleeding worse or irritate your stomach. Follow-up with your primary doctor regarding enlarged prostate, consider testing PSA. Follow-up with your primary doctor regarding hiatal hernia. Measure your blood pressures 3 times daily and record values to bring to your appointment. Your blood pressure was low on presentation and likely resulted in your fainting episode. In case you feel lightheaded any time sit down or lie down immediately, do not try to fight through the feeling to avoid fainting, falling, injury, etc. Please do not resume losartan and amlodipine at current time. Please have your primary doctor follow-up your kidney function and assess for recovery from kidney injury. Continue metoprolol at reduced dose of 50 mg twice daily. Avoid low blood pressure, if her blood pressure is lower than 110/60 or if your heart rate is less than 60, do not take the medication. Seek medical attention in case of any worsening or new concerning symptoms. Discharge Attestations Time Spent in Discharge Care*: greater than 30 min Quality Metrics Clinical Quality Measures [ No reported AMI, CVA or VTE this stay] Coding Level of Care Code 65393 Total time (in minutes) for Discharge: 45 Diagnoses Anemia D64.9 Mass of esophagus K22.89 Syncope R55 Syncope type: unspecified Acute kidney injury superimposed on CKD N17.9; N18.9 Leukocytosis [address]72.[address] R93.2 Refusal of blood transfusions as patient is Episcopalian Z53.1 Prostate enlargement N40.0
[2024-01-01 08:22] LABS: PD-L1 (Clone 22C3) by IHC BBPL See Report
[2024-01-02 13:49] LABS: HER2 FISH/IHC (Non-Gastric) See Report
[2024-01-02 13:50] LABS: HER2 FISH/IHC (Non-Gastric) See Report
== END 2023-12-25 13:39 | disposition home or self-care (01) ==
LOC: ER 12:59 → MEDSURG 17:00
PROVIDERS: Surgery; Admitting Provider Internal Medicine; Emergency Provider Physician Assistant; PCP Family Medicine Adult Medicine; Visit Provider Internal Medicine
PROC: 0DJ08ZZ Inspection of Upper Intestinal Tract, Via Natural or Artificial Opening Endoscopic (ICD-10-PCS; CPT 43235; principal; 2023-12-24 13:00)
DX: D64.9 Anemia, unspecified (principal); C15.9 Malignant neoplasm of esophagus, unspecified; C16.9 Malignant neoplasm of stomach, unspecified; K22.89 Other specified disease of esophagus; R55 Syncope and collapse; N17.9 Acute kidney failure, unspecified; I12.9 Hypertensive chronic kidney disease with stage 1 through stage 4 chronic kidney disease, or unspecified chronic kidney disease; N18.30 Chronic kidney disease, stage 3 unspecified; D72.829 Elevated white blood cell count, unspecified; R93.2 Abnormal findings on diagnostic imaging of liver and biliary tract; N40.0 Benign prostatic hyperplasia without lower urinary tract symptoms; E78.5 Hyperlipidemia, unspecified; Z87.891 Personal history of nicotine dependence; K29.50 Unspecified chronic gastritis without bleeding; K44.9 Diaphragmatic hernia without obstruction or gangrene; M19.90 Unspecified osteoarthritis, unspecified site; K21.9 Gastro-esophageal reflux disease without esophagitis
CPT/HCPCS: 36415; 36416; 43239; 43255; 71045; 74176; 80048; 80053; 80306; 81001; 82550; 82728; 82962; 83540; 83550; 84443; 84484; 85025; 85610; 87486; 87581; 87633; 88104; 88305; 88341; 88342; 93005; 93306; 96361; 96374; 99285; C9113; G0378; J0330; J1100; J2371; J2405; J2704; J7030

== ENCOUNTER → 2024-01-21 13:08 | Day surgery (SDC) | payer SELFPAY ==
[2024-01-21 12:45] VITALS: BP 108/78; PULSE 120; RESP 18; TEMP 36.5; O2SAT 97
--- NOTE | 2024-01-21 12:50 | XR_ITS ---
WS: [id number] CHEST XRAY TECHNIQUE: Portable chest. CLINICAL INFORMATION: Post PICC insertion COMPARISON: None. FINDINGS: RIGHT PICC line with tip at the SVC/RA junction. This could be pulled back approximately 1 cm for optimal distal SVC positioning. Heart: Normal cardiac silhouette. Lungs: Lungs are clear. No consolidation or pleural effusion. Bones: Thoracic curve convex LEFT. IMPRESSION: 1. RIGHT PICC line with tip at the SVC/RA junction. This could be pulled back approximately 1 cm fo r optimal distal SVC positioning 2. No pneumothorax
--- NOTE | 2024-01-21 14:10 | PICC.NOTE ---
Double lumen PICC placed to right baslic vein. Referred to vascular access nurse for PICC placement due to need for chemotherapy. Risks and benefits discussed and informed consent obtained from patient. Right arm assessed with right basilic vein measuring 5.0 mm, straight, and apparent best choice for placement. Using sterile technique and MST, right basilic vein accessed x 1 stick. Mid-arm circumference measured 10 cm from right AC 29 cm. Trimmed cath 40 cm with 2 cm external length noted. CXR shows tip in distal SVC, right atrial junction. Radiologist recommended retracting line 1 cm for optimal distal SVC placement. Line retracted 1 cm as recommended. Line secured with stat-lock. Insertion site covered with Biopatch and TSM. Pt has appointment at [facility] tomorrow for 24 hour dressing change. Plan is for chemo to start on Friday.
== END ==
LOC: GILAB 13:10
PROVIDERS: PCP Family Medicine Adult Medicine; Visit Provider Nurse Practitioner Family
DX: Z45.2 Encounter for adjustment and management of vascular access device (principal)
CPT/HCPCS: 36573; 71045

== ENCOUNTER 2024-01-22 09:45 | Oncology outpatient (recurring) (ONCR) | payer SELFPAY ==
[2024-01-01 10:59] LABS: Basophils # 0.1 10^3/uL (0.0-0.1); Basophils % 0.4 %; Eosinophils # 0.1 10^3/uL (0.0-0.8); Eosinophils % 0.8 %; Hematocrit 34.7 % (37-53); Lymphocytes # 1.4 10^3/uL (0.8-4.8); Lymphocytes % 9.2 %; Mean Corpuscular HGB Conc 31.4 g/dL (30-55); Mean Corpuscular Hemoglobin 24.8 pg (27-33); Mean Corpuscular Volume 78.9 fl (82-101); Monocytes # 1.2 10^3/uL (0.2-0.9); Monocytes % 7.9 %; Neutrophils # 11.91 10^3/uL (1.8-7.7); Neutrophils % 81.2 %; Nucleated Red Blood Cells % 0 %; Platelet Count 517 10^3/cmm (157-399); Red Cell Distribution Width 15.4 % (12.1-15.1); White Blood Count 14.67 10^3/uL (3.29-11.43)
[2024-01-01 11:17] LABS: Alanine Aminotransferase 18 U/L (0-41); Albumin Level 3.8 g/dL (3.5-5.2); Alkaline Phosphatase 101 U/L (40-130); Aspartate Amino Transferase 29 U/L (0-40); Blood Urea Nitrogen 26 mg/dL (8-23); Calcium 9.9 mg/dL (8.5-10.5); Carbon Dioxide 22 mmol/L (22-29); Chloride 101 mmol/L (98-107); Creatinine Clr Calc Pharmacy 54.3924; Ferritin 170 ng/mL (30-400); Glomerular Filtration Rate 47.1 mL/min (90-130); Glucose 117 mg/dL (65-115); Iron 17 ug/dL (59-158); Osmolality Calculated 290 mOsm/kg (285-295); Percent Saturation 7.5 % (20-50); Sodium 137 mmol/L (136-145); Total Bilirubin 0.4 mg/dL (0.15-1.2); Total Iron Binding Capacity 226 mcg/dl; Total Protein 6.8 g/dL (6.6-8.7); Unsaturated Iron Binding 209 ug/dL (112-347)
[2024-01-21 09:21] LABS: Basophils # 0.1 10^3/uL (0.0-0.1); Basophils % 0.4 %; Eosinophils # 0.1 10^3/uL (0.0-0.8); Eosinophils % 0.2 %; Hematocrit 36.5 % (37-53); Lymphocytes # 1.7 10^3/uL (0.8-4.8); Lymphocytes % 7.5 %; Mean Corpuscular HGB Conc 31.2 g/dL (30-55); Mean Corpuscular Hemoglobin 23.4 pg (27-33); Mean Corpuscular Volume 74.8 fl (82-101); Mean Platelet Volume 10.1 fL (7.4-10.4); Monocytes # 1.7 10^3/uL (0.2-0.9); Monocytes % 7.5 %; Neutrophils # 18.88 10^3/uL (1.8-7.7); Neutrophils % 83.5 %; Nucleated Red Blood Cells % 0 %; Platelet Count 737 10^3/cmm (157-399); Red Blood Count 4.88 10^6/uL (3.85-5.65); Red Cell Distribution Width 15.8 % (12.1-15.1)
[2024-01-21] MEDS: sodium chloride 0.9% 1,000 ML 999 ML IV (09:33)
[2024-01-21 09:35] VITALS: BP 93/58; PULSE 120; RESP 20; TEMP 36.6; O2SAT 97
[2024-01-21 09:36] LABS: Alanine Aminotransferase 86 U/L (0-41); Albumin Level 2.7 g/dL (3.5-5.2); Alkaline Phosphatase 357 U/L (40-130); Anion Gap 16.9 (5-19); Aspartate Amino Transferase 136 U/L (0-40); Blood Urea Nitrogen 23 mg/dL (8-23); Calcium 10.1 mg/dL (8.5-10.5); Carbon Dioxide 21 mmol/L (22-29); Chloride 98 mmol/L (98-107); Creatinine Clr Calc Pharmacy 62.7604; Globulin 3.1 g/dL (1.3-4.6); Glomerular Filtration Rate 55.6 mL/min (90-130); Glucose 103 mg/dL (65-115); Osmolality Calculated 278 mOsm/kg (285-295); Potassium 3.9 mmol/L (3.5-5.1); Sodium 132 mmol/L (136-145); Total Protein 5.8 g/dL (6.6-8.7)
[2024-01-21] MEDS: ferric carboxy (IVPB) 750 MG in sodium chloride 0.9% (100 ml) 100 ML 345 MG IV (10:10)
[2024-01-21 11:41] VITALS: BP 108/68; PULSE 71; RESP 16; TEMP 36.9; O2SAT 98
== END 2024-01-27 23:59 | disposition home or self-care (01) ==
PROVIDERS: Nurse Practitioner Family; PCP Family Medicine Adult Medicine; Visit Provider Internal Medicine Medical Oncology
DX: Z45.2 Encounter for adjustment and management of vascular access device; Z53.9 Procedure and treatment not carried out, unspecified reason
CPT/HCPCS: 36415; 80053; 82728; 83540; 83550; 85025; 96365; 96366; J1439; J7030

== ENCOUNTER 2024-01-29 12:53 | Inpatient (IN) | payer SELFPAY ==
[2024-01-29] VITALS (21 sets, daily range): BP systolic 79–115; BP diastolic 54–71; PULSE 80–124; RESP 14–20; TEMP 35–36.7; O2SAT 81–100; BMI 23.2
--- NOTE | 2024-01-29 13:54 | CTR_ITS ---
PROCEDURE INFORMATION: Exam: CT Abdomen And Pelvis With Contrast Exam date and time: 01/29/2024 2:10 PM Age: 63 years old Clinical indication: Abdominal pain; Generalized; Patient HX: Abd cancer; Additional info: Abd pain TECHNIQUE: Imaging protocol: Computed tomography of the abdomen and pelvis with contrast. Radiation optimization: All CT scans at this facility use at least one of these dose optimization techniques: automated exposure control; mA and/or kV adjustment per patient size (includes targeted exams where dose is matched to clinical indication); or iterative reconstruction. Contrast material: OMNI 350; Contrast volume: 80 ml; Contrast route: INTRAVENOUS (IV); COMPARISON: CT abdomen pelvis wo con [id number] 12/23/2023 11:22 AM RADIATION DOSE METRICS: Total DLP (mGy-cm): 602 FINDINGS: Lungs: Lung bases are clear. No pleural effusion. Liver: Innumerable metastatic lesions are noted throughout the entire liver. Gallbladder and bile ducts: Normal. No calcified stones. No ductal dilation. Pancreas: Normal. No ductal dilation. Spleen: Normal. No splenomegaly. Adrenal glands: Normal. No mass. Kidneys and ureters: 3 cm left renal cyst noted. Stomach and bowel: There is extensive infiltrating tumor involving the gastroesophageal junction extending into a hiatal hernia within the lower mediastinum. Appendix: No evidence of appendicitis. Intraperitoneal space: There is mild ascites present. Vasculature: Unremarkable. No abdominal aortic aneurysm. Lymph nodes: Several enlarged lymph nodes are noted in the yasmine hepatis region. Urinary bladder: Unremarkable as visualized. Reproductive: The prostate gland is abnormally enlarged. Bones/joints: Unremarkable. No acute fracture. Soft tissues: There is a large perigastric lobulated soft tissue mass that measures 9.1 x 7.5 x 8.2 cm. This mass appears to blend with the gastric wall. 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 Metastatic lymph nodes also noted. These findings have all worsened significantly over the past 2 months. COMMENTS: Consistent with the [employer]'s Incidental Findings Committee white paper (J Am Cedric Radiol 2018): Any incidental renal lesion less than 1 cm or classified as too small to characterize, or any incidental cystic renal lesion characterized as simple-appearing, is likely benign. No follow-up imaging is recommended for these lesions per consensus recommendations based on imaging criteria.
--- NOTE | 2024-01-29 13:54 | ED_ITS ---
HPI - Abdominal Pain 2 General: Chief Complaint: Abdominal Pain Stated Complaint: Abd pain Time Seen by Provider: 01/29/24 13:47 Source: patient Mode of arrival: ambulatory Limitations: no limitations History of Present Illness: 63-year-old male has a history of stage IV esophageal cancer along with gastric cancer patient's not on treatment currently he was going to start oral chemo he has been having some dehydration as creatinine has been elevated his calcium has been elevated as well he complains of worsening abdominal pain he was sent here from oncology for his worsening kidney function and hypercalcemia. He states abdominal pain is diffuse has been chronic rates it a 7 out of 10 Associated Symptoms: Denies chills, diarrhea, dysuria, fever(s), nausea and vomiting Review of Systems 2 Const: Denies: fever(s), chills, body aches or change in appetite ENMT: Reports: throat pain; Denies: dental pain Card: Denies: chest pain Resp: Denies: dyspnea GI: Reports: abdominal pain; Denies: nausea, vomiting or diarrhea : Denies: dysuria Musc: Denies: neck pain or back pain Skin/Breast: Denies: rash Neuro: Denies: headache(s) PFSH ED 2 PFSH: Medical History Refusal of blood transfusions as patient is Religion COPD (chronic obstructive pulmonary disease) Former cigarette smoker Encounter for health maintenance examination in adult Hematuria, microscopic BPH (benign prostatic hyperplasia) CKD (chronic kidney disease) stage 3, GFR 30-59 ml/min 11/18/2023 creatinine 1.8 with a GFR 38 Muscle spasms of both lower extremities Hypertension Hyperlipidemia GERD (gastroesophageal reflux disease) Chronic gout Osteoarthritis Surgical History History of esophagogastroduodenoscopy (EGD) Dr. Fitzgerald on 12/24/2023 with lower one third esophageal and gastric mass History of tonsillectomy History of hand surgery right Family History Brother No problems noted. Father Lung disease Ruptured aneurysm of artery Mother Stroke Social History Smoking and tobacco/nicotine status: former use of tobacco/nicotine Quit status (tobacco/nicotine): has quit using Former quit date comment: He began smoking at age 14 and quit sometime in his 20s. Alcohol intake: former Former alcohol use details: He had alcohol use in the past, but never heavy. He quit 3 to 4 years ago. Substance/Drug Use: never Physical Exam 2 Const: COMMON NORMALS: patient oriented x3 GENERAL APPEARANCE: ill appearing HENMT: COMMON NORMALS: normocephalic and atraumatic HEAD & SCALP: n ormocephalic and atraumatic Eye: COMMON NORMALS: Equal, round and reactive pupils present and EOMs intact bilaterally PUPIL: Yes Equal, round and reactive pupils present Neck/C-Spine: COMMON NORMALS: full ROM and supple Chest: COMMONS NORMALS: normal inspection of the chest and normal palpation of entire chest wall Resp: COMMON NORMALS: normal respiratory effort, No retractions, No use of accessory muscles and clear to auscultation bilaterally AUSCULTATION: clear to auscultation bilaterally Cardio: COMMON NORMALS: regular rate, regular rhythm and No murmurs present (Cardio) RATE: regular rate RHYTHM: regular rhythm GI: COMMON NORMALS: Normal to inspection, nondistended, normoactive bowel sounds present, Soft to palpation, non-tender and no masses PALPATION: Yes Soft to palpation Extremity: COMMON NORMALS: normal to inspection and full ROM Neuro: COMMON NORMALS: patient oriented x3, moves all extremities and no focal motor deficits Psych: COMMON NORMALS: mental status grossly normal, Normal thought process present and cooperative THOUGHT PROCESS: Normal thought process present Skin: COMMON NORMALS: no rashes or lesions noted and no wounds GENERAL SKIN EXAM: no rashes or lesions noted Course 2 Vital Signs: Vital signs: Vital Signs Temperature 95.0 F L 01/29/24 13:37 Pulse Rate 116 H 01/29/24 15:45 Respiratory Rate 14 01/29/24 15:45 Blood Pressure 115/70 01/29/24 15:45 Pulse Oximetry 97 01/29/24 15:45 Oxygen Delivery Me thod Room Air 01/29/24 13:37 MDM - Abdominal Pain Medical Decision Making Patient presents here from oncology without lab vital maladies he was found to be hyponatremic here along with hypercalcemic slight ERIKA likely all from dehydration he does have an elevated white count and lactate I believe is more from dehydration he is afebrile here but did get blood cultures start on IV antibiotics his blood pressures improved after IV fluids CT here showed significant worsening of his cancer. I spoke to hospitalist and will admit at this time Medical Records I reviewed the patient's medical records. Lab Data I reviewed the patient's lab results. 01/29/24 14:00 01/29/24 15:15 Labs/Radiology: Radiology Impressions Abdomen/Pelvis CT 01/29/24 13:54 IMPRESSION: Very large infiltrating carcinoma involving the stomach with extensive hepatic metastatic disease noted. Metastatic lymph nodes also noted. These findings have all worsened significantly over the past 2 months. COMMENTS: Consistent with the [employer]'s Incidental Findings Committee white paper (J Am Cedric Radiol 2018): Any incidental renal lesion less than 1 cm or classified as too small to characterize, or any incidental cystic renal lesion characterized as simple-appearing, is likely benign. No follow-up imaging is recommended for these lesions per consensus recommendations based on imaging criteria. Laboratory Results WBC 45.19 10^3/uL (3.29-11.43) H* 01/29/24 14:00 RBC 5.03 10^6/uL (3.85-5.65) 01/29/24 14:00 Hgb 12.40 g/dL (11.27-16.99) 01/29/24 14:00 Hct 40.0 % (37-53) 01/29/24 14:00 MCV 79.5 fl (82-101) L 01/29/24 14:00 MCH 24.7 pg (27-33) L 01/29/24 14:00 MCHC 31.0 g/dL (30-55) 01/29/24 14:00 RDW 22.9 % (12.1-15.1) H 01/29/24 14:00 Plt Count 640 10^3/cmm (157-399) H 01/29/24 14:00 MPV 10.5 fL (7.4-10.4) H 01/29/24 14:00 Neut % (Auto) 87.0 % 01/29/24 14:00 Lymph % (Auto) 4.8 % 01/29/24 14:00 [place] % (Auto) 5.1 % 01/29/24 14:00 Eos % (Auto) 0.0 % 01/29/24 14:00 Baso % (Auto) 0.2 % 01/29/24 14:00 Neut # (Auto) 39.31 10^3/uL (1.8-7.7) H 01/29/24 14:00 Lymph # (Auto) 2.2 10^3/uL (0.8-4.8) 01/29/24 14:00 [place] # (Auto) 2.3 10^3/uL (0.2-0.9) H 01/29/24 14:00 Eos # (Auto) 0.0 10^3/uL (0.0-0.8) 01/29/24 14:00 Baso # (Auto) 0.1 10^3/uL (0.0-0.1) 01/29/24 14:00 Nucleated RBC % (auto) 0.4 % 01/29/24 14:00 Nucleated RBCs # 0.2 /100WBC 01/29/24 14:00 Sodium 126 mmol/L (136-145) L 01/29/24 15:15 Potassium 4.9 mmol/L (3.5-5.1) 01/29/24 15:15 Chloride 92 mmol/L (98-107) L 01/29/24 15:15 Carbon Dioxide 19 mmol/L (22-29) L 01/29/24 15:15 Anion Gap 19.9 (5-19) H 01/29/24 15:15 BUN 64 mg/dL (8-23) H 01/29/24 15:15 Creatinine 1.6 mg/dL (0.7-1.2) H 01/29/24 15:15 GFR Calculation 43.7 mL/min (90-130) L 01/29/24 15:15 Glucose 81 mg/dL (65-115) 01/29/24 15:15 Calculated Osmolality 279 mOsm/kg (285-295) L 01/29/24 15:15 Lactic Acid 4.0 mmol/L (0.5-2.2) H 01/29/24 14:00 Calcium 11.8 mg/dL (8.5-10.5) H 01/29/24 15:15 Total Bilirubin 1.8 mg/dL (0.15-1.2) H 01/29/24 15:15 AST 478 U/L (0-40) H 01/29/24 15:15 ALT 322 U/L (0-41) H 01/29/24 15:15 Alkaline Phosphatase 508 U/L (40-130) H 01/29/24 15:15 Total Protein 5.3 g/dL (6.6-8.7) L 01/29/24 15:15 Albumin 2.6 g/dL (3.5-5.2) L 01/29/24 15:15 Globulin 2.7 g/dL (1.3-4.6) 01/29/24 15:15 Lipase 47 U/L (13-60) 01/29/24 15:15 Urine Color Dark yellow (Yellow) 01/29/24 15:45 Urine Appearance Clear (CLEAR) 01/29/24 15:45 Urine pH 5 (5-7) 01/29/24 15:45 Ur Specific [place] 1.025 (1.005-1.030) 01/29/24 15:45 Urine Protein Trace (Negative) 01/29/24 15:45 Urine Glucose (UA) Norm (Normal) 01/29/24 15:45 Urine Ketones 1+ (Negative) H 01/29/24 15:45 Urine Blood Neg (Negative) 01/29/24 15:45 Urine Nitrate Negative (Negative) 01/29/24 15:45 Urine Bilirubin 1+ (Negative) H 01/29/24 15:45 Urine Urobilinogen 1 mg/dL (Negative) H 01/29/24 15:45 Ur Leukocyte Esterase Negative (Negative) 01/29/24 15:45 Amorphous Sediment Not Reportable 01/29/24 15:45 All radiology interpretation(s) finalized by discharge Critical Care Time 2 Critical Care Time: Critical Care Time: Yes Total Critical Care Time: 40 Attestation: The high probability of a clinically significant, sudden or life threatening deterioration of the patient's endocrine system(s) required my full and direct attention, intervention and personal management. The critical care time is as shown. This time is in addition to time spent performing any reported procedures but includes the following: [x] Data and vital sign review and interpretation [x] Patient assessment, examination and intervention [x] Documentation [x] Medication orders and management Discharge Plan Discharge Patient Disposition: Admitted As Inpatient Clinical Impression: ERIKA (acute kidney injury), Leukocytosis, Malignant neoplasm of lower third of esophagus, Malignant neoplasm of fundus of stomach, Acute hyponatremia Condition: Stable Prescriptions: No Action gabapentin 300 mg capsule 300 mg PO DAILY PRN (Reason: Pain) loratadine [Claritin] 10 mg tablet 10 mg PO DAILY PRN (Reason: allergies) allopurinol 300 mg tablet 150 mg PO DAILY PRN (Reason: Gout) albuterol sulfate [Ventolin HFA] 90 mcg/actuation HFA aerosol inhaler 2 puff inhalation Q4H PRN (Reason: shortness of breath or wheezing) Qty: 8.5 1RF cyclobenzaprine 5 mg tablet 5 mg PO BID PRN (Reason: muscle spasm) 60 Days Qty: 120 1RF capecitabine 500 mg tablet 1,500 mg PO BID Qty: 84 2RF Rx Instructions: day 1-14 per 21-day cycle; administer with water 30 minutes after a meal capecitabine 150 mg tablet 150 mg PO BID Qty: 28 0RF Rx Instructions: administer with 3 - 500 mg tabs for each dose; must give with water 30 minutes after a meal Injectafer 100 mg iron/2 mL solution 750 mg IV Q7D Rx Instructions: LAST AND FINAL INFUSSION ON 01/28/24- CLINIC USE pantoprazole [Protonix] 40 mg tablet,delayed release (DR/EC) 40 mg PO BID 42 Days Qty: 84 0RF sucralfate 1 gram tablet 1 g PO BID 56 Days Qty: 112 0RF ferrous sulfate 325 mg (65 mg iron) tablet 325 mg PO EVERY OTHER DAY Qty: 90 0RF omeprazole 20 mg capsule,delayed release(DR/EC) 20 mg PO DAILY PRN (Reason: Acid Reflux) Zometa 4 mg Recon Soln 4 mg IV ONCE Rx Instructions: CLINIC USE atorvastatin 80 mg tablet 80 mg PO DAILY metoprolol tartrate 100 mg tablet 50 mg PO BID ondansetron HCl 4 mg Tablet 4 mg PO QID PRN (Reason: Nausea/vomiting) Qty: 30 3RF prochlorperazine maleate [Compazine] 10 mg tablet 10 mg PO Q4H PRN (Reason: Mild Nausea) Qty: 30 3RF lorazepam 1 mg tablet 0.5 - 1 mg PO Q6H PRN (Reason: Severe Nausea) Qty: 30 3RF Referrals: Brad Gilmore MD [Primary Care Provider] - Coding Level of Care Code ED [employer] Maintenance for Krys Biggs
[2024-01-29] MEDS: iohexol 350 mg/mL 500 mL Btl (per mL) IV (14:11)
[2024-01-29 14:12] LABS: Basophils # 0.1 10^3/uL (0.0-0.1); Basophils % 0.2 %; Lymphocytes # 2.2 10^3/uL (0.8-4.8); Lymphocytes % 4.8 %; Mean Corpuscular Hemoglobin 24.7 pg (27-33); Mean Corpuscular Volume 79.5 fl (82-101); Mean Platelet Volume 10.5 fL (7.4-10.4); Monocytes # 2.3 10^3/uL (0.2-0.9); Monocytes % 5.1 %; Neutrophils # 39.31 10^3/uL (1.8-7.7); Nucleated Red Blood Cells # 0.2 /100WBC; Nucleated Red Blood Cells % 0.4 %; Platelet Count 640 10^3/cmm (157-399); Red Blood Count 5.03 10^6/uL (3.85-5.65); Red Cell Distribution Width 22.9 % (12.1-15.1)
[2024-01-29 14:21] LABS: White Blood Count 45.19 10^3/uL (3.29-11.43)
[2024-01-29] MEDS: sodium chloride 0.9% 500 ML 999 ML IV (15:19)
[2024-01-29] MEDS: piperacillin-tazobactam 3.375 GM in sodium chloride 0.9% (plus) 50 ML IV ×2 (15:20→22:45)
[2024-01-29] MEDS: sodium chloride 0.9% 1,000 ML 999 ML IV ×2 (15:23→15:48)
[2024-01-29 15:45] LABS: Alanine Aminotransferase 322 U/L (0-41); Albumin Level 2.6 g/dL (3.5-5.2); Alkaline Phosphatase 508 U/L (40-130); Anion Gap 19.9 (5-19); Aspartate Amino Transferase 478 U/L (0-40); Blood Urea Nitrogen 64 mg/dL (8-23); Calcium 11.8 mg/dL (8.5-10.5); Carbon Dioxide 19 mmol/L (22-29); Chloride 92 mmol/L (98-107); Creatinine Clr Calc Pharmacy 49.9156; Globulin 2.7 g/dL (1.3-4.6); Glomerular Filtration Rate 43.7 mL/min (90-130); Glucose 81 mg/dL (65-115); Lipase 47 U/L (13-60); Osmolality Calculated 279 mOsm/kg (285-295); Potassium 4.9 mmol/L (3.5-5.1); Sodium 126 mmol/L (136-145); Total Bilirubin 1.8 mg/dL (0.15-1.2); Total Protein 5.3 g/dL (6.6-8.7)
[2024-01-29] MEDS: vancomycin 1,000 MG in sodium chloride 0.9% 250 ML 250 MG IV (15:48)
[2024-01-29 15:54] LABS: Reflex Lactate Order REFLEX LACTIC ORDERD
[2024-01-29 16:07] LABS: Bilirubin Urine 1+ (Negative); Blood Urine Neg (Negative); Glucose Urine UA Norm (Normal); Ketones Urine 1+ (Negative); Nitrate Urine Negative (Negative); Protein Urine Trace (Negative); Specific Gravity, Urine 1.025 (1.005-1.030); Urine Appearance Clear (CLEAR); Urine Color Dark Yellow (Yellow); Urobilinogen Urine 1 mg/dL (Negative); pH Urine 5 (5-7)
[2024-01-29 16:08] LABS: Add Urine Microscopic? YES; Leukocyte Esterase Urine Negative (Negative)
[2024-01-29 16:19] LABS: RBC Urine RARE /hpf (0-2); Squamous Epithelial Cell Urine 0-4 /hpf (0-5); WBC Urine 0-4 /hpf (0-5)
[2024-01-29 16:20] LABS: Add Urine Culture? No; Bacteria Urine TRACE /hpf
--- NOTE | 2024-01-29 17:00 | PC.NURSE ---
Arrived from ED AO x4 follows commands
--- NOTE | 2024-01-29 17:46 | P.HP_ITS ---
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 From oncology clinic for abnormal labs in the ER he was diagnosed with severe dehydration cachexia malnourishment hyponatremia, ERIKA, severe leukocytosis CT scan of abdomen pelvis showing infiltrating stomach cancer with significant mets which has worsened since last CT scan of abdomen pelvis. Patient was hypotensive required multiple fluid boluses. Patient is stating that he does not eat very well because he gets abdominal pain, he has not been eating well for last few months, he has been losing weight, his functional capacity has reduced significantly, recently has not Dors any fever chest pain or shortness of breath, he lives with his , Patient is stating that he does not want any aggressive measures in case of any cardiac or respiratory arrest He is okay with continuation of medications His blood pressure MAP [address] abdomen pelvis showing stomach cancer invading stomach wall aggressively with mets to liver with lymphadenopathy Review of Systems 2 Const: Reports: fatigue; Denies: fever(s) Eyes: Denies: change in vision ENMT: Denies: throat pain Card: Denies: chest pain Resp: Reports: dyspnea GI: Reports: abdominal pain and nausea : Denies: flank pain Musc: Denies: neck pain Skin/Breast: Denies: rash Neuro: Denies: headache(s) Psych: Reports: anxiety Medications/Allergies Home Medications Medication Instructions Recorded Confirmed Last Taken Type albuterol sulfate 90 mcg/actuation 2 puff inhalation Q4H PRN 11/18/23 01/29/24 01/20/24 Rx aerosol inhaler (Ventolin HFA) shortness of breath or wheezing #8.5 grams cyclobenzaprine 5 mg tablet 5 mg PO BID PRN muscle spasm 60 11/18/23 01/29/24 01/20/24 Rx days #120 tabs ferrous sulfate 325 mg (65 mg 325 mg PO EVERY OTHER DAY #90 tabs 12/25/23 01/29/24 01/20/24 Rx iron) tablet pantoprazole 40 mg tablet,delayed 40 mg PO BID 6 weeks #84 tabs 12/25/23 01/29/24 01/20/24 Rx release (Protonix) sucralfate 1 gram tablet 1 g PO BID 8 weeks #112 tabs 12/25/23 01/29/24 01/20/24 Rx allopurinol 300 mg tablet 150 mg PO DAILY PRN Gout 01/01/24 01/29/24 01/20/24 History gabapentin 300 mg capsule 300 mg PO DAILY PRN Pain 01/01/24 01/29/24 01/20/24 History loratadine 10 mg tablet (Claritin) 10 mg PO DAILY PRN allergies 01/01/24 01/29/24 01/20/24 History ferric carboxymaltose 100 mg 750 mg (15 mL) IV Q7D 2 doses 01/07/24 01/29/24 01/28/24 Rx iron/2 mL intravenous solution (Injectafer) capecitabine 150 mg tablet 150 mg PO BID #28 tabs 01/22/24 01/29/24 Unknown Rx capecitabine 500 mg tablet 1,500 mg (3 x 500 mg) PO BID #84 01/22/24 01/29/24 Unknown Rx tabs lorazepam 1 mg tablet 0.5 - 1 mg (0.5 - 1 x 1 mg) PO Q6H 01/22/24 01/29/24 Unknown Rx PRN Severe Nausea #30 tabs ondansetron HCl 4 mg tablet 4 mg PO QID PRN Nausea/vomiting 01/22/24 01/29/24 Unknown Rx #30 tabs prochlorperazine maleate 10 mg 10 mg PO Q4H PRN Mild Nausea #30 01/22/24 01/29/24 Unknown Rx tablet (Compazine) tabs atorvastatin 80 mg tablet 80 mg PO DAILY 01/29/24 01/29/24 Unknown History metoprolol tartrate 100 mg tablet 50 mg PO BID 01/29/24 01/29/24 Unknown History omeprazole 20 mg capsule,delayed 20 mg PO DAILY PRN Acid Reflux 01/29/24 01/29/24 Unknown History release zoledronic acid 4 mg intravenous 4 mg IV ONCE 01/29/24 01/29/24 01/28/24 History solution Allergies Allergy/AdvReac Type Severity Reaction Status Date / Time hydrochlorothiazide Allergy Intermediate ADR-Muscle Verified 01/29/24 13:41 Pain PFSH Acute 2 PFSH: Medical History Refusal of blood transfusions as patient is Yarsanism COPD (chronic obstructive pulmonary disease) Former cigarette smoker Encounter for health maintenance examination in adult Hematuria, microscopic BPH (benign prostatic hyperplasia) CKD (chronic kidney disease) stage 3, GFR 30-59 ml/min 11/18/2023 creatinine 1.8 with a GFR 38 Muscle spasms of both lower extremities Hypertension Hyperlipidemia GERD (gastroesophageal reflux disease) Chronic gout Osteoarthritis Surgical History History of esophagogastroduodenoscopy (EGD) Dr. Fitzgerald on 12/24/2023 with lower one third esophageal and gastric mass History of tonsillectomy History of hand surgery right Family History Brother No problems noted. Father Lung disease Ruptured aneurysm of artery Mother Stroke Social History Smoking and tobacco/nicotine status: former use of tobacco/nicotine Quit status (tobacco/nicotine): has quit using Former quit date comment: He began smoking at age 14 and quit sometime in his 20s. Alcohol intake: former Former alcohol use details: He had alcohol use in the past, but never heavy. He quit 3 to 4 years ago. Substance/Drug Use: never Vitals/I&O/Wt Last Vital Signs Temp 95.0 F L 01/29/24 13:37 Pulse 115 H 01/29/24 16:30 Resp 14 01/29/24 15:45 BP 114/71 01/29/24 16:30 Pulse Ox 95 01/29/24 16:30 O2 Del Method Room Air 01/29/24 17:01 01/29/24 01/29/24 01/29/24 06:59 14:59 22:59 Intake Total 2216.25 / 2216.25 Balance 2216.25 / 2216.25 Weight last 48 hrs Weight 75.478 kg Weight 76.204 kg Physical Exam 2 Narrative: Patient is frail Cachectic Malnourished Abdomen is tender midepigastric region and right upper quadrant Nonfocal neuroexam Awake and alert Active and alert S1, S2 sinus tachycardia Severe dehydration Data 01/29/24 14:00 01/29/24 15:15 Micro: Microbiology 01/29/24 15:23 Blood Culture - Preliminary Blood SPECIMEN COLLECTED 01/29/24 15:15 Blood Culture - Preliminary Blood SPECIMEN COLLECTED A&P Assessment and plan (1) Refusal of blood transfusions as patient is Yarsanism: (2) Mass of esophagus: (3) Abnormal liver CT: (4) Acute kidney injury superimposed on CKD: (5) Hypercalcemia: (6) Acute hyponatremia: (7) Malignant neoplasm of lower third of esophagus: (8) Malignant neoplasm of fundus of stomach: (9) COPD (chronic obstructive pulmonary disease): Qualifiers: COPD type: emphysema Emphysema type: panlobular Qualified Code(s): J 43.1 - Panlobular emphysema Plan Lower esophageal and stomach cancer Mets to liver Cachectic, malnourished Poor p.o. intake related to hypovolemia Low albumin Will give him IV fluids along albumin MAP is improving with IV fluid hydration Start antibiotics broad-spectrum Patient is DNR/DNI Will keep him on GI soft diet Add Protonix Hypovolemic hypotension Responding to IV fluids I am not adding any vasopressors as of now Significant leukocytosis Start broad-spectrum antibiotics Acute on chronic kidney disease related dehydration Anticipate improved with IV fluid hydration Baseline creatinine seems to be around 1.4 Significant hyponatremia Admit to ICU Start fluid hydration Check sodium level every 4 hours Patient is a Yarsanism No blood transfusion DNR/DNI DVT prophylaxis Has a history of iron deficient anemia Goals of care discussed with the patient, he lives with his Guarded prognosis Attestations 2 Medical Necessity Statement*: More than 2 midnights anticipated Coding Level of Care Code Acute Code for Chg Fwd Diagnoses Refusal of blood transfusions as patient is Yarsanism Z53.1 Mass of esophagus K22.[address] R93.2 Acute kidney injury superimposed on CKD N17.9; N18.9 Hypercalcemia E83.52 Acute hyponatremia E87.1 Malignant neoplasm of lower third of esophagus C15.5 Malignant neoplasm of fundus of stomach C16.1 Panlobular emphysema J43.1 COPD type: emphysema Emphysema type: panlobular
[2024-01-29] MEDS: pantoprazole 40 mg SDV IVP (18:12)
[2024-01-29] MEDS: enoxaparin 40 mg/0.4 mL Syringe SUBCUT (18:13)
[2024-01-29] MEDS: sodium chloride 0.9% 1,000 ML 75 ML IV (18:13)
[2024-01-29 18:46] LABS: Lactic Acid level (Lactate) 2.9 mmol/L (0.5-2.2)
[2024-01-29] MEDS: lactated ringers 1,000 ML 999 ML IV (19:57)
[2024-01-29 20:24] LABS: Sodium 126 mmol/L (136-145)
--- NOTE | 2024-01-29 22:02 | PC.NURSE ---
pt care this nurse took over pt care at this time. pt resting eyes closed resp even and unlabored.
--- NOTE | 2024-01-29 23:40 | PC.NURSE ---
pt karl care pt called out because he thought he had a bowel movement and needed to be cleaned. pt brief was full of urine. no bowel movement at this time. educated on urinal use if able. pt verbalized understanding. pt washed with soap and clean brief applied.
[2024-01-30] VITALS (18 sets, daily range): BP systolic 91–127; BP diastolic 61–81; PULSE 88–119; RESP 15–29; TEMP 36.4–36.7; O2SAT 94–99
[2024-01-30 00:01] LABS: Sodium 129 mmol/L (136-145)
[2024-01-30 05:54] LABS: Basophils # 0.1 10^3/uL (0.0-0.1); Basophils % 0.2 %; Hematocrit 34.2 % (37-53); Lymphocytes % 5.4 %; Mean Corpuscular Hemoglobin 25.2 pg (27-33); Mean Corpuscular Volume 81.4 fl (82-101); Mean Platelet Volume 10.4 fL (7.4-10.4); Monocytes # 2.2 10^3/uL (0.2-0.9); Monocytes % 5.9 %; Neutrophils # 31.11 10^3/uL (1.8-7.7); Neutrophils % 84.2 %; Nucleated Red Blood Cells # 0.2 /100WBC; Nucleated Red Blood Cells % 0.6 %; Platelet Count 548 10^3/cmm (157-399); Red Cell Distribution Width 23.9 % (12.1-15.1)
[2024-01-30 06:11] LABS: White Blood Count 36.96 10^3/uL (3.29-11.43)
[2024-01-30 06:28] LABS: Alanine Aminotransferase 270 U/L (0-41); Albumin Level 2.3 g/dL (3.5-5.2); Alkaline Phosphatase 417 U/L (40-130); Anion Gap 18.8 (5-19); Aspartate Amino Transferase 424 U/L (0-40); Blood Urea Nitrogen 65 mg/dL (8-23); C Reactive Protein 71.3 mg/L (0.0-4.9); Calcium 10.3 mg/dL (8.5-10.5); Carbon Dioxide 19 mmol/L (22-29); Chloride 99 mmol/L (98-107); Globulin 2.4 g/dL (1.3-4.6); Glomerular Filtration Rate 47.1 mL/min (90-130); Glucose 60 mg/dL (65-115); Magnesium 2.5 mg/dL (1.7-2.3); Osmolality Calculated 291 mOsm/kg (285-295); Phosphorus 3.7 mg/dL (2.5-4.5); Potassium 4.8 mmol/L (3.5-5.1); Sodium 132 mmol/L (136-145); Total Bilirubin 1.6 mg/dL (0.15-1.2); Total Protein 4.7 g/dL (6.6-8.7)
[2024-01-30] MEDS: piperacillin-tazobactam 3.375 GM in sodium chloride 0.9% (plus) 50 ML IV ×3 (06:33→23:00)
[2024-01-30] MEDS: sodium chloride 0.9% 1,000 ML 75 ML IV ×2 (07:11→20:22)
[2024-01-30] MEDS: pantoprazole 40 mg SDV IVP ×2 (08:38→16:46)
--- NOTE | 2024-01-30 12:33 | P.PN_ITS ---
Subjective 2 Subjective: Patient can be transferred to [facility] admission: None I had a mauro Discussion with the Patient and [id number] at the Bedside They Are Okay with DNR/DNI and Would Consider Hospice Referral If He Gets Worse down the Road Leukocytosis noted Patient blood pressure has improved Vitals/I&O/Wt Last Vital Signs Temp 97.8 F 01/30/24 08:00 Pulse 114 H 01/30/24 10:52 Resp 16 01/30/24 10:52 BP 104/71 01/30/24 10:00 Pulse Ox 98 01/30/24 10:52 O2 Del Method Room Air 01/30/24 10:52 01/29/24 01/30/24 01/30/24 22:59 06:59 14:59 Intake Total 3316.25 / 3316.25 50 / 3366.25 1382.5 / 1382.5 Balance 3316.25 / 3316.25 50 / 3366.25 1382.5 / 1382.5 Weight last 48 hrs Weight 75.296 kg Weight 75.478 kg Weight 76.204 kg Physical Exam 2 Narrative: Signs of dehydration present but improved Tachycardia sinus rhythm Blood pressure improved Abdomen tender mid epigastric region Pleasant cooperative Nonfocal neuroexam GCS 15 Right-sided PICC line in place Data 01/30/24 05:20 01/30/24 05:20 Micro: Microbiology 01/29/24 15:23 Blood Culture - Preliminary Blood SPECIMEN COLLECTED 01/29/24 15:15 Blood Culture - Preliminary Blood SPECIMEN COLLECTED A&P Assessment and plan (1) Refusal of blood transfusions as patient is Buddhism: (2) Mass of esophagus: (3) Abnormal liver CT: (4) Acute kidney injury superimposed on CKD: (5) Acute hyponatremia: (6) Prostate enlargement: (7) Iron deficiency anemia due to chronic blood loss: (8) Malignant neoplasm of fundus of stomach: (9) Malignant neoplasm of lower third of esophagus: Plan Significant hypotension: Improved with IV fluid hydration Sepsis related to GI source Afebrile this morning Leukocytosis persistent Continue antibiotics Esophageal and stomach cancer with mets to liver Carries cardiopulmonary Poor p.o. intake 1 p.o. to get PEG tube Acute on chronic kidney disease: Improving Hyponatremia: Improved DNR/DNI Plan to discharge him over the weekend back to home maybe with hospice, Patient in discussion with the family for hospice care Attestations 2 Medical Necessity Statement*: Can be transferred out of ICU to [facility] Diagnoses Refusal of blood transfusions as patient is Buddhism Z53.1 Mass of esophagus K22.[address] R93.2 Acute kidney injury superimposed on CKD N17.9; N18.9 Acute hyponatremia E87.1 Prostate enlargement N40.0 Iron deficiency anemia due to chronic blood loss D50.0 Malignant neoplasm of fundus of stomach C16.1 Malignant neoplasm of lower third of esophagus C15.5
--- NOTE | 2024-01-30 13:50 | PC.NURSE ---
pt transferred to [facility]-2 Arlen RN over the patient in ICU followed to patient to [facility] to resume care. Pt transferred via bed.
[2024-01-30] MEDS: vancomycin 1,250 MG/250 ML PIGGYBACK 250 MG IV (14:17)
[2024-01-30] MEDS: sodium bicarbonate 650 mg Tablet PO ×2 (14:52→20:21)
[2024-01-30] MEDS: enoxaparin 40 mg/0.4 mL Syringe SUBCUT (16:46)
[2024-01-31] VITALS (8 sets, daily range): BP systolic 97–120; BP diastolic 61–73; PULSE 90–111; RESP 16–18; TEMP 36.3–36.4; O2SAT 94–98
[2024-01-31] MEDS: ondansetron 2 mg/ML SDV 2 mL 4 MG IVP (03:04)
[2024-01-31] MEDS: piperacillin-tazobactam 3.375 GM in sodium chloride 0.9% (plus) 50 ML IV ×3 (06:53→23:01)
--- NOTE | 2024-01-31 07:27 | PM.PN ---
Subjective Subjective: [id number] was asking and requesting for second opinion, [facility] would not connect me to an oncologist without needing a transfer I did go over active scenario, current CT scan findings poor functional pasty, poor p.o. intake with the patient and his family, they are wanting to talk with hospice personnel today Patient is already on palliative chemotherapy however with worsening of functional status he might not be able to go for chemo anymore This morning blood pressure is soft again, will give another fluid bolus Request CBC BMP as well Vitals/I&O/Wt Last Vital Signs Temp 97.6 F 01/31/24 03:24 Pulse 111 H 01/31/24 03:24 Resp 17 01/31/24 03:24 BP 97/66 01/31/24 03:24 Pulse Ox 96 01/31/24 03:24 O2 Del Method Room Air 01/31/24 03:24 01/30/24 01/31/24 01/31/24 22:59 06:59 14:59 Intake Total 1528.75 / 3031.25 290 / 3321.25 Balance 1528.75 / 3031.25 290 / 3321.25 Weight last 48 hrs Weight 75.296 kg Weight 75.478 kg Weight 76.204 kg Physical Exam Narrative: Signs of fluid dehydration Hypokalemia Abdominal pain is persistent Able to tolerate small bites of meals Nonfocal neuroexam Patient is awake and alert Able to comprehend GCS 15 S1, S2 sinus tachycardia Data 01/30/24 05:20 01/30/24 05:20 Micro: Microbiology 01/29/24 15:23 Blood Culture - Preliminary Blood NEGATIVE TO DATE 01/29/24 15:15 Blood Culture - Preliminary Blood NEGATIVE TO DATE A&P Assessment and plan (1) Refusal of blood transfusions as patient is Tenriism: (2) Mass of esophagus: (3) Abnormal liver CT: (4) CKD (chronic kidney disease) stage 3, GFR 30-59 ml/min: Qualifiers: Chronic kidney disease stage 3 subtype: stage 3b (GFR 30-44) Qualified Code(s): N18.32 - Chronic kidney disease, stage 3b (5) Hypercalcemia: (6) Acute hyponatremia: (7) Anemia: (8) Leukocytosis: (9) Malignant neoplasm of lower third of esophagus: (10) Malignant neoplasm of fundus of stomach: Plan [facility] would not entertain second opinion without needing a transfer Patient is already on palliative chemotherapy I do not think he will be able to continue chemotherapy if he keeps getting worse and functional status keeps getting poor CODE STATUS has been changed to DNR/DNI With hospice personnel today Hypovolemic hyponatremia: Improved with IV fluids Hypovolemic hypotension: Will give another fluid bolus today Monitor closely if patient would need vasopressors He does not want blood transfusion or albumin Sepsis likely related to GI source continue antibiotics 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 evident on CT scan We will not be able to use PEG tube for feeding Patient has a PICC line, interested in short-term solution such as parenteral nutrition in the hospital Guarded prognosis Attestations Medical Necessity Statement*: Continue medical management Diagnoses Refusal of blood transfusions as patient is Tenriism Z53.1 Mass of esophagus K22.[address] R93.2 Stage 3b chronic kidney disease N18.32 Chronic kidney disease stage 3 subtype: stage 3b (GFR 30-44) Hypercalcemia E83.52 Acute hyponatremia E87.1 Anemia D64.9 Leukocytosis D72.829 Malignant neoplasm of lower third of esophagus C15.5 Malignant neoplasm of fundus of stomach C16.1
[2024-01-31] MEDS: lactated ringers 1,000 ML 999 ML IV (08:20)
[2024-01-31] MEDS: sodium bicarbonate 650 mg Tablet PO ×3 (08:24→20:09)
[2024-01-31] MEDS: pantoprazole 40 mg SDV IVP ×2 (08:24→17:54)
[2024-01-31 08:39] LABS: Basophils # 0.1 10^3/uL (0.0-0.1); Basophils % 0.3 %; Eosinophils % 0.1 %; Lymphocytes # 2.1 10^3/uL (0.8-4.8); Lymphocytes % 5.8 %; Mean Corpuscular HGB Conc 31.1 g/dL (30-55); Mean Corpuscular Hemoglobin 26.5 pg (27-33); Mean Platelet Volume 10.4 fL (7.4-10.4); Monocytes # 2.3 10^3/uL (0.2-0.9); Monocytes % 6.4 %; Neutrophils # 28.92 10^3/uL (1.8-7.7); Nucleated Red Blood Cells # 0.4 /100WBC; Platelet Count 560 10^3/cmm (157-399); Red Blood Count 4.12 10^6/uL (3.85-5.65); Red Cell Distribution Width 25.4 % (12.1-15.1)
[2024-01-31 08:53] LABS: Alanine Aminotransferase 288 U/L (0-41); Albumin Level 2.2 g/dL (3.5-5.2); Alkaline Phosphatase 420 U/L (40-130); Anion Gap 20.7 (5-19); Aspartate Amino Transferase 488 U/L (0-40); Blood Urea Nitrogen 70 mg/dL (8-23); Calcium 9.3 mg/dL (8.5-10.5); Carbon Dioxide 16 mmol/L (22-29); Chloride 98 mmol/L (98-107); Globulin 2.4 g/dL (1.3-4.6); Glomerular Filtration Rate 33.8 mL/min (90-130); Glucose 68 mg/dL (65-115); Osmolality Calculated 289 mOsm/kg (285-295); Potassium 4.7 mmol/L (3.5-5.1); Sodium 130 mmol/L (136-145); Total Protein 4.6 g/dL (6.6-8.7)
[2024-01-31 09:11] LABS: Creatinine Clr Calc Pharmacy 39.7408
[2024-01-31 09:23] LABS: Neutrophils % 87.4 %
[2024-01-31 09:24] LABS: Slide Review Slide Review Perform
[2024-01-31 09:25] LABS: White Blood Count 35.52 10^3/uL (3.29-11.43)
[2024-01-31] MEDS: sodium chloride 0.9% 1,000 ML 75 ML IV (09:48)
[2024-01-31] MEDS: morphine IR 15 mg Tablet PO (10:21)
--- NOTE | 2024-01-31 11:56 | PC.NUTR ---
If PN medically necessary, recommend TPN to begin at 23mls/hr and increasing 20mls Q8H until goal rate of 83 mls/hr is reached with standard electrolytes, MV 10 mls/day, and 20 grams /100mls fat emulsion. Details in RD assessment.
[2024-01-31] MEDS: AA-Dex 5%-20% w/Lytes 1,000 ML with multivitamin inj 10 ML 43 ML IV (15:11)
[2024-01-31] MEDS: vancomycin 1,250 MG/250 ML PIGGYBACK 250 MG IV (15:17)
[2024-01-31] MEDS: enoxaparin 40 mg/0.4 mL Syringe SUBCUT (17:54)
[2024-02-01] VITALS (9 sets, daily range): BP systolic 96–103; BP diastolic 61–70; PULSE 102–108; RESP 16–20; TEMP 36.4–37; O2SAT 93–96
[2024-02-01] MEDS: morphine IR 15 mg Tablet PO (04:12)
[2024-02-01] MEDS: calcium carbonate 500 mg Chew Tablet 1000 MG PO (04:13)
[2024-02-01] MEDS: piperacillin-tazobactam 3.375 GM in sodium chloride 0.9% (plus) 50 ML IV ×2 (06:17→16:27)
[2024-02-01 06:38] LABS: Basophils # 0.1 10^3/uL (0.0-0.1); Basophils % 0.3 %; Eosinophils # 0.2 10^3/uL (0.0-0.8); Eosinophils % 0.5 %; Hematocrit 36.9 % (37-53); Lymphocytes # 2.1 10^3/uL (0.8-4.8); Mean Corpuscular HGB Conc 30.4 g/dL (30-55); Mean Corpuscular Hemoglobin 26.1 pg (27-33); Mean Platelet Volume 10.4 fL (7.4-10.4); Monocytes # 2.2 10^3/uL (0.2-0.9); Monocytes % 6.3 %; Neutrophils # 28.29 10^3/uL (1.8-7.7); Neutrophils % 79.4 %; Nucleated Red Blood Cells # 0.2 /100WBC; Nucleated Red Blood Cells % 0.6 %; Platelet Count 608 10^3/cmm (157-399); Red Blood Count 4.29 10^6/uL (3.85-5.65); Red Cell Distribution Width 25.8 % (12.1-15.1)
[2024-02-01 06:41] LABS: White Blood Count 35.63 10^3/uL (3.29-11.43)
--- NOTE | 2024-02-01 06:54 | P.PN_ITS ---
Subjective 2 Subjective: Patient is doing well Continue TPN Patient is stating that he was not able to eat yesterday because he had a lot of visitors Vitals/I&O/Wt Last Vital Signs Temp 97.7 F 02/01/24 03:00 Pulse 104 H 02/01/24 03:00 Resp 17 02/01/24 04:12 BP 103/70 02/01/24 03:00 Pulse Ox 94 02/01/24 03:00 O2 Del Method Room Air 02/01/24 03:00 01/31/24 01/31/24 02/01/24 14:59 22:59 06:59 Intake Total 3010 / 3010 660.000 / 3670.000 790 / 4460.000 Balance 3010 / 3010 660.000 / 3670.000 790 / 4460.000 Physical Exam 2 Narrative: Dehydration present but improving Nonfocal neuroexam GCS 15 Pleasant cooperative Currently on TPN On room air No exacerbation of pain at the time of evaluation Tachycardia Sinus tachycardia Data 02/01/24 06:11 01/31/24 07:54 A&P Assessment and plan (1) Refusal of blood transfusions as patient is Anabaptist: (2) Iron deficiency anemia due to chronic blood loss: (3) Leukocytosis: (4) Malignant neoplasm of lower third of esophagus: (5) Malignant neoplasm of fundus of stomach: (6) Acute kidney injury superimposed on CKD: (7) Acute hyponatremia: (8) Prostate enlargement: (9) Hypercalcemia: Plan Plan to discharge him home by Friday Patient is still undecided about hospice care We will not be able to get second opinion from [facility] because they want allow discussing with oncologist over the phone for second opinion Patient is DNR/DNI TPN started over the weekend Signs of dehydration improving Still has poor p.o. intake Will try to touch base with the oncologist on Friday as well Dr. King if he is around Attestations 2 Medical Necessity Statement*: Continue medical management Diagnoses Refusal of blood transfusions as patient is Anabaptist Z53.1 Iron deficiency anemia due to chronic blood loss D50.0 Leukocytosis D72.829 Malignant neoplasm of lower third of esophagus C15.5 Malignant neoplasm of fundus of stomach C16.1 Acute kidney injury superimposed on CKD N17.9; N18.9 Acute hyponatremia E87.1 Prostate enlargement N40.0 Hypercalcemia E83.52
[2024-02-01 09:40] LABS: Blood Urea Nitrogen 68 mg/dL (8-23); Calcium 8.3 mg/dL (8.5-10.5); Carbon Dioxide 15 mmol/L (22-29); Chloride 99 mmol/L (98-107); Glucose 170 mg/dL (65-115); Osmolality Calculated 290 mOsm/kg (285-295); Sodium 128 mmol/L (136-145)
[2024-02-01 09:41] LABS: Creatinine Clr Calc Pharmacy 37.8484
[2024-02-01] MEDS: sodium bicarbonate 650 mg Tablet PO ×3 (09:50→20:38)
[2024-02-01] MEDS: pantoprazole 40 mg SDV IVP ×2 (09:59→18:50)
[2024-02-01] MEDS: AA-Dex 5%-20% w/Lytes 1,000 ML with multivitamin inj 5 ML 83 ML IV (14:34)
[2024-02-01] MEDS: vancomycin 1,250 MG/250 ML PIGGYBACK 250 MG IV (15:17)
[2024-02-01] MEDS: enoxaparin 40 mg/0.4 mL Syringe SUBCUT (18:27)
[2024-02-01] MEDS: HYDROmorphone 1 mg/mL INJ 1 mL 0.400000000000000022 MG IVP (20:37)
[2024-02-02] VITALS (11 sets, daily range): BP systolic 88–107; BP diastolic 55–71; PULSE 85–113; RESP 16–20; TEMP 36.3–36.4; O2SAT 94–97
[2024-02-02] MEDS: piperacillin-tazobactam 3.375 GM in sodium chloride 0.9% (plus) 50 ML IV ×4 (00:03→23:56)
[2024-02-02] MEDS: AA-Dex 5%-20% w/Lytes 1,000 ML with multivitamin inj 5 ML 83 ML IV ×2 (02:16→14:51)
[2024-02-02] MEDS: HYDROmorphone 1 mg/mL INJ 1 mL 0.400000000000000022 MG IVP (02:24)
[2024-02-02 05:06] LABS: Basophils # 0.1 10^3/uL (0.0-0.1); Basophils % 0.4 %; Eosinophils # 0.2 10^3/uL (0.0-0.8); Eosinophils % 0.5 %; Hematocrit 35.9 % (37-53); Lymphocytes # 1.8 10^3/uL (0.8-4.8); Lymphocytes % 6.3 %; Mean Corpuscular HGB Conc 26.5 g/dL (30-55); Mean Corpuscular Hemoglobin 26.5 pg (27-33); Mean Corpuscular Volume 100.3 fl (82-101); Mean Platelet Volume 10.5 fL (7.4-10.4); Monocytes # 2.1 10^3/uL (0.2-0.9); Monocytes % 7.1 %; Neutrophils # 22.48 10^3/uL (1.8-7.7); Neutrophils % 77.2 %; Nucleated Red Blood Cells # 0.2 /100WBC; Nucleated Red Blood Cells % 0.8 %; Platelet Count 383 10^3/cmm (157-399); Red Blood Count 3.58 10^6/uL (3.85-5.65); Red Cell Distribution Width 26.7 % (12.1-15.1); White Blood Count 29.13 10^3/uL (3.29-11.43)
[2024-02-02 05:30] LABS: Anion Gap 16.9 (5-19); Blood Urea Nitrogen 62 mg/dL (8-23); Calcium 7.8 mg/dL (8.5-10.5); Carbon Dioxide 15 mmol/L (22-29); Chloride 87 mmol/L (98-107); Creatinine Clr Calc Pharmacy 51.5314; Glomerular Filtration Rate 43.7 mL/min (90-130)
[2024-02-02 05:45] LABS: Osmolality Calculated 352 mOsm/kg (285-295)
[2024-02-02 05:47] LABS: Potassium 6.9 mmol/L (3.5-5.1); Sodium 112 mmol/L (136-145)
[2024-02-02 05:48] LABS: Glucose 1900 mg/dL (65-115)
[2024-02-02 06:32] LABS: Alanine Aminotransferase 193 U/L (0-41); Alkaline Phosphatase 305 U/L (40-130); Aspartate Amino Transferase 280 U/L (0-40); Blood Urea Nitrogen 64 mg/dL (8-23); Calcium 8.7 mg/dL (8.5-10.5); Carbon Dioxide 18 mmol/L (22-29); Chloride 98 mmol/L (98-107); Creatinine Clr Calc Pharmacy 51.5314; Globulin 2.4 g/dL (1.3-4.6); Glomerular Filtration Rate 43.7 mL/min (90-130); Glucose 199 mg/dL (65-115); Osmolality Calculated 290 mOsm/kg (285-295); Sodium 128 mmol/L (136-145); Total Bilirubin 2.6 mg/dL (0.15-1.2); Total Protein 4.4 g/dL (6.6-8.7)
[2024-02-02 06:34] LABS: Anion Gap 15.9 (5-19); Potassium 3.9 mmol/L (3.5-5.1)
[2024-02-02] MEDS: pantoprazole 40 mg SDV IVP ×2 (09:46→17:13)
[2024-02-02] MEDS: sodium bicarbonate 650 mg Tablet PO ×3 (09:46→22:27)
[2024-02-02] MEDS: ondansetron 2 mg/ML SDV 2 mL 4 MG IVP (09:59)
--- NOTE | 2024-02-02 10:10 | PC.NURSE ---
Dr. Johansen notified patient had 50 ml of dark red emesis.
--- NOTE | 2024-02-02 11:47 | P.DS_ITS ---
Discharge Providers Date of Admission: 01/29/24 16:12 Date of Discharge: February 02, 2024 Attending Provider at Admission: Kevin Madera MD Attending Provider at Discharge: Yeni Johansen MD Primary Care Provider: Brad Gilmore MD Diagnoses at Discharge Discharge Diagnosis (1) Refusal of blood transfusions as patient is Christianity: Status: Acute (2) Iron deficiency anemia due to chronic blood loss: Status: Acute (3) Leukocytosis: Status: Acute (4) Malignant neoplasm of lower third of esophagus: Status: Acute (5) Malignant neoplasm of fundus of stomach: Status: Acute (6) Acute kidney injury superimposed on CKD: Status: Acute (7) Acute hyponatremia: Status: Acute (8) Prostate enlargement: Status: Acute (9) Hypercalcemia: Status: Acute Reason for Visit Reason for Visit: Abd pain Hospital Course Hospital Course 63-year male with 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 King has a right-sided PICC line, not been able to eat much because of gastric cancer, presented with chief complaint of hypotension hyponatremia, significant leukocytosis acute on chronic kidney disease, Patient refused blood product such as albumin, we hydrated him well with IV fluids and started TPN in the hospital, patient is not a good candidate for a PEG tube placement secondary to stomach cancer, his functional status is gradually declining, he is not able to eat much, he is constantly losing weight, this is an unfortunate circumstance when patient is not able to recuperate well in order to his get palliative chemotherapy, he will be considered high risk for dehydration, IV nutrition will not be a good long-term solution, patient does try to eat through his mouth to some extent, he does get abdominal discomfort after eating. I had a very long discussion with the patient regarding current clinical scenario, current CT scan findings which is showing worsening of liver metastatic lesion, lymphadenopathy and stomach mass, he decided to opt for DNR/DNI status, in case of further worsening he may opt for hospice care at home he does not want to go to skilled nursing. His hyponatremia did show improvement with IV fluid hydration, will give him salt tablets as well, he has been tolerating protein shakes in the hospital. ERIKA improved with hydration. His significant leukocytosis trending down, he remained afebrile, this leukocytosis seems cancer related however he was kept on broad-spectrum antibiotics in the hospital, cultures remain negative 02/02 patient was discharged from the hospital, we have kept his PICC line in, discontinue TPN, he directly went to the oncology clinic to get evaluated for IV chemotherapy because patient will not be able to tolerate p.o. chemotherapy at this point considering his stomach cancer and consistent pain. Physical Exam Narrative: Cachectic, malnourished, dehydrated Abdomen distended midepigastric region Nonfocal neuroexam GCS 15 Currently on room air Getting IV fluids along TPN Discharge Data Studies Completed and Pending Completed Studies During Hospitalization Category Date Time Status CT abdomen pelvis w con* [id number] Stat Cat Scan 01/29/24 13:54 Completed Pending at discharge Category Date Time Status Blood Culture Stat Lab 01/29/24 15:23 Results Vancomycin Trough Timed Lab 02/02/24 13:00 Ordered Radiology Impressions Abdomen/Pelvis CT 01/29/24 13:54 IMPRESSION: Very large infiltrating carcinoma involving the stomach with extensive hepatic metastatic disease noted. Metastatic lymph nodes also noted. These findings have all worsened significantly over the past 2 months. COMMENTS: Consistent with the [employer]'s Incidental Findings Committee white paper (J Am Cedric Radiol 2018): Any incidental renal lesion less than 1 cm or classified as too small to characterize, or any incidental cystic renal lesion characterized as simple-appearing, is likely benign. No follow-up imaging is recommended for these lesions per consensus recommendations based on imaging criteria. Laboratory Results WBC 29.13 10^3/uL (3.29-11.43) H 02/02/24 04:48 RBC 3.58 10^6/uL (3.85-5.65) L 02/02/24 04:48 Hgb 9.50 g/dL (11.27-16.99) L 02/02/24 04:48 Hct 35.9 % (37-53) L 02/02/24 04:48 MCV 100.3 fl (82-101) D 02/02/24 04:48 MCH 26.5 pg (27-33) L 02/02/24 04:48 MCHC 26.5 g/dL (30-55) L D 02/02/24 04:48 RDW 26.7 % (12.1-15.1) H 02/02/24 04:48 Plt Count 383 10^3/cmm (157-399) D 02/02/24 04:48 MPV 10.5 fL (7.4-10.4) H 02/02/24 04:48 Neut % (Auto) 77.2 % 02/02/24 04:48 Lymph % (Auto) 6.3 % 02/02/24 04:48 [place] % (Auto) 7.1 % 02/02/24 04:48 Eos % (Auto) 0.5 % 02/02/24 04:48 Baso % (Auto) 0.4 % 02/02/24 04:48 Neut # (Auto) 22.48 10^3/uL (1.8-7.7) H 02/02/24 04:48 Lymph # (Auto) 1.8 10^3/uL (0.8-4.8) 02/02/24 04:48 [place] # (Auto) 2.1 10^3/uL (0.2-0.9) H 02/02/24 04:48 Eos # (Auto) 0.2 10^3/uL (0.0-0.8) 02/02/24 04:48 Baso # (Auto) 0.1 10^3/uL (0.0-0.1) 02/02/24 04:48 Nucleated RBC % (auto) 0.8 % 02/02/24 04:48 Nucleated RBCs # 0.2 /100WBC 02/02/24 04:48 Sodium 128 mmol/L (136-145) L D 02/02/24 06:05 Potassium 3.9 mmol/L (3.5-5.1) 02/02/24 06:05 Chloride 98 mmol/L (98-107) 02/02/24 06:05 Carbon Dioxide 18 mmol/L (22-29) L 02/02/24 06:05 Anion Gap 15.9 (5-19) 02/02/24 06:05 BUN 64 mg/dL (8-23) H 02/02/24 06:05 Creatinine 1.6 mg/dL (0.7-1.2) H 02/02/24 06:05 GFR Calculation 43.7 mL/min (90-130) L 02/02/24 06:05 Glucose 199 mg/dL (65-115) H 02/02/24 06:05 Calculated Osmolality 290 mOsm/kg (285-295) 02/02/24 06:05 Lactic Acid 4.0 mmol/L (0.5-2.2) H 01/29/24 14:00 Lactic Acid (Sepsis) 2.9 mmol/L (0.5-2.2) H 01/29/24 18:00 Calcium 8.7 mg/dL (8.5-10.5) 02/02/24 06:05 Phosphorus 3.7 mg/dL (2.5-4.5) 01/30/24 05:20 Magnesium 2.5 mg/dL (1.7-2.3) H 01/30/24 05:20 Total Bilirubin 2.6 mg/dL (0.15-1.2) H 02/02/24 06:05 AST 280 U/L (0-40) H 02/02/24 06:05 ALT 193 U/L (0-41) H 02/02/24 06:05 Alkaline Phosphatase 305 U/L (40-130) H 02/02/24 06:05 C-Reactive Protein 71.3 mg/L (0.0-4.9) H 01/30/24 05:20 Total Protein 4.4 g/dL (6.6-8.7) L 02/02/24 06:05 Albumin 2.0 g/dL (3.5-5.2) L 02/02/24 06:05 Globulin 2.4 g/dL (1.3-4.6) 02/02/24 06:05 Lipase 47 U/L (13-60) 01/29/24 15:15 Urine Color Dark yellow (Yellow) 01/29/24 15:45 Urine Appearance Clear (CLEAR) 01/29/24 15:45 Urine pH 5 (5-7) 01/29/24 15:45 Ur Specific [place] 1.025 (1.005-1.030) 01/29/24 15:45 Urine Protein Trace (Negative) 01/29/24 15:45 Urine Glucose (UA) Norm (Normal) 01/29/24 15:45 Urine Ketones 1+ (Negative) H 01/29/24 15:45 Urine Blood Neg (Negative) 01/29/24 15:45 Urine Nitrate Negative (Negative) 01/29/24 15:45 Urine Bilirubin 1+ (Negative) H 01/29/24 15:45 Urine Urobilinogen 1 mg/dL (Negative) H 01/29/24 15:45 Ur Leukocyte Esterase Negative (Negative) 01/29/24 15:45 Urine RBC Rare /hpf (0-2) 01/29/24 15:45 Urine WBC 0-4 /hpf (0-5) H 01/29/24 15:45 Ur Squamous Epith Cells 0-4 /hpf (0-5) H 01/29/24 15:45 Amorphous Sediment Not Reportable 01/29/24 15:45 Urine Bacteria Trace /hpf (NONE) 01/29/24 15:45 Urine Mucus None /hpf 01/29/24 15:45 Vitals Last Vital Signs Temp 97.6 F 02/02/24 08:00 Pulse 100 02/02/24 08:00 Resp 20 H 02/02/24 08:00 BP 94/60 02/02/24 08:00 Pulse Ox 95 02/02/24 08:00 O2 Del Method Room Air 02/02/24 08:00 Discharge Plan Discharge Patient Disposition: Hospice - Home Condition: Fair Prescriptions: New sodium chloride 1,000 mg tablet,soluble 1,000 mg PO BID Qty: 20 0RF levofloxacin 750 mg tablet 750 mg PO DAILY 10 Days Qty: 10 0RF Continued gabapentin 300 mg capsule 300 mg PO DAILY PRN (Reason: Pain) loratadine [Claritin] 10 mg tablet 10 mg PO DAILY PRN (Reason: allergies) allopurinol 300 mg tablet 150 mg PO DAILY PRN (Reason: Gout) albuterol sulfate [Ventolin HFA] 90 mcg/actuation HFA aerosol inhaler 2 puff inhalation Q4H PRN (Reason: shortness of breath or wheezing) Qty: 8.5 1RF cyclobenzaprine 5 mg tablet 5 mg PO BID PRN (Reason: muscle spasm) 60 Days Qty: 120 1RF capecitabine 500 mg tablet 1,500 mg PO BID Qty: 84 2RF Rx Instructions: day 1-14 per 21-day cycle; administer with water 30 minutes after a meal capecitabine 150 mg tablet 150 mg PO BID Qty: 28 0RF Rx Instructions: administer with 3 - 500 mg tabs for each dose; must give with water 30 minutes after a meal pantoprazole [Protonix] 40 mg tablet,delayed release (DR/EC) 40 mg PO BID 42 Days Qty: 84 0RF sucralfate 1 gram tablet 1 g PO BID 56 Days Qty: 112 0RF ferrous sulfate 325 mg (65 mg iron) tablet 325 mg PO EVERY OTHER DAY Qty: 90 0RF omeprazole 20 mg capsule,delayed release(DR/EC) 20 mg PO DAILY PRN (Reason: Acid Reflux) zoledronic acid 4 mg Recon Soln 4 mg IV ONCE Rx Instructions: CLINIC USE Discontinued Injectafer 100 mg iron/2 mL solution 750 mg IV Q7D Rx Instructions: LAST AND FINAL INFUSSION ON 01/28/24- CLINIC USE atorvastatin 80 mg tablet 80 mg PO DAILY Discharge Orders: Discharge Order (Routine); Ordered 02/03/24 Ordered By: Yeni Johansen Referrals: [facility] Setup [Other] (Once pt has a pending Medicaid number, You can call this number to get In home Services arranged. They will ask you questions. Based off your answers the pt is given points. He has to have a certain number of points to qualify. ) [facility] [Outside] (Palliative Care) Brad Gilmore MD [Primary Care Provider] - Discharge Diet: Soft Mechanical Patient Instructions: Levofloxacin (By mouth), Sodium Chloride (By mouth), Hospice Care, Palliative Care (GEN), Opioid Safety Discharge Attestations Time Spent in Discharge Care*: greater than 30 min Quality Metrics Clinical Quality Measures [ No reported AMI, CVA or VTE this stay] Coding Level of Care Code Acute Code for Chg Fwd Diagnoses Refusal of blood transfusions as patient is Christianity Z53.1 Iron deficiency anemia due to chronic blood loss D50.0 Leukocytosis D72.829 Malignant neoplasm of lower third of esophagus C15.5 Malignant neoplasm of fundus of stomach C16.1 Acute kidney injury superimposed on CKD N17.9; N18.9 Acute hyponatremia E87.1 Prostate enlargement N40.0 Hypercalcemia E83.52
--- NOTE | 2024-02-02 11:50 | XR_ITS ---
WS: [id number] PORTABLE CHEST HISTORY: vomit COMPARISON: 01/21/2024 Lung volumes are decreased. No mass or nodule. No aspiration pneumonia. No pleural effusion or pneumo thorax. Cardiac size: Normal. Mediastinum/Aorta: Increased density near the GE junction from the known neoplasm that has been previ ously described. No osseous abnormality seen. Right-sided PICC line remains in good position. XR/XR chest 1V portable [id number] IMPRESSION: Decreased inspiration. No aspiration pneumonia identified.
--- NOTE | 2024-02-02 12:59 | P.PN_ITS ---
Subjective 2 Subjective: Sodium 128, leukocytosis improving Continue TPN Spoke with the family, Will give him referral to [facility] as well, ask commercial lines account executive to see him at the bedside, Dr. King not available until end of the month Vitals/I&O/Wt Last Vital Signs Temp 97.6 F 02/02/24 11:49 Pulse 113 H 02/02/24 11:49 Resp 16 02/02/24 11:49 BP 96/64 02/02/24 11:49 Pulse Ox 95 02/02/24 11:49 O2 Del Method Room Air 02/02/24 11:49 02/01/24 02/02/24 02/02/24 22:59 06:59 14:59 Intake Total 900 / 2200 1261.1 / 3461.1 50 / 50 Output Total 50 / 50 Balance 900 / 2200 1261.1 / 3461.1 0 / 0 Weight last 48 hrs Weight 82.327 kg Physical Exam 2 Narrative: Awake and alert Signs of dehydration present but improving Nonfocal neuroexam Currently on room air Pleasant cooperative nonfocal neuroexam GCS 15 Data 02/02/24 04:48 02/02/24 06:05 A&P Assessment and plan (1) Refusal of blood transfusions as patient is Adventist: (2) Mass of esophagus: (3) Abnormal liver CT: (4) ERIKA (acute kidney injury): (5) Acute kidney injury superimposed on CKD: (6) Anemia: (7) Iron deficiency anemia due to chronic blood loss: (8) Malignant neoplasm of lower third of esophagus: (9) Malignant neoplasm of fundus of stomach: (10) COPD (chronic obstructive pulmonary disease): Qualifiers: COPD type: emphysema Emphysema type: panlobular Qualified Code(s): J 43.1 - Panlobular emphysema Plan Plan to keep him here 1 more day Spoke with the oncology clinic and the family I will let him have clear liquid diet along TPN Continue bicarb tablets Add salt tablets Attestations 2 Medical Necessity Statement*: Discharge likely tomorrow Diagnoses Refusal of blood transfusions as patient is Adventist Z53.1 Mass of esophagus K22.[address] R93.2 ERIKA (acute kidney injury) N17.9 Acute kidney injury superimposed on CKD N17.9; N18.9 Anemia D64.9 Iron deficiency anemia due to chronic blood loss D50.0 Malignant neoplasm of lower third of esophagus C15.5 Malignant neoplasm of fundus of stomach C16.1 Panlobular emphysema J43.1 COPD type: emphysema Emphysema type: panlobular
[2024-02-02 14:05] LABS: Vancomycin Trough 14.8 ug/mL (10-15)
[2024-02-02] MEDS: vancomycin 1,250 MG/250 ML PIGGYBACK 250 MG IV (15:06)
[2024-02-02] MEDS: sodium chloride 1 gm Tablet PO ×2 (15:08→17:14)
[2024-02-02] MEDS: morphine IR 15 mg Tablet PO (22:27)
[2024-02-03] VITALS: BP 107/66; PULSE 100; RESP 18; TEMP 36.4; O2SAT 97
[2024-02-03] MEDS: AA-Dex 5%-20% w/Lytes 1,000 ML with multivitamin inj 5 ML 83 ML IV (02:01)
[2024-02-03 03:45] VITALS: BP 86/57; PULSE 104; RESP 18; TEMP 36.3; O2SAT 95
[2024-02-03] MEDS: piperacillin-tazobactam 3.375 GM in sodium chloride 0.9% (plus) 50 ML IV (06:13)
[2024-02-03 07:00] LABS: Basophils # 0.2 10^3/uL (0.0-0.1); Basophils % 0.5 %; Eosinophils # 0.2 10^3/uL (0.0-0.8); Eosinophils % 0.7 %; Hematocrit 32.3 % (37-53); Lymphocytes # 2.2 10^3/uL (0.8-4.8); Lymphocytes % 6.5 %; Mean Corpuscular HGB Conc 30.3 g/dL (30-55); Mean Corpuscular Hemoglobin 26.3 pg (27-33); Mean Corpuscular Volume 86.6 fl (82-101); Mean Platelet Volume 10.8 fL (7.4-10.4); Monocytes # 2.6 10^3/uL (0.2-0.9); Monocytes % 7.7 %; Neutrophils # 25.51 10^3/uL (1.8-7.7); Neutrophils % 74.8 %; Nucleated Red Blood Cells # 0.5 /100WBC; Nucleated Red Blood Cells % 1.3 %; Platelet Count 333 10^3/cmm (157-399); Red Blood Count 3.73 10^6/uL (3.85-5.65); Red Cell Distribution Width 27.7 % (12.1-15.1)
[2024-02-03 07:24] LABS: Blood Urea Nitrogen 62 mg/dL (8-23); Calcium 8.8 mg/dL (8.5-10.5); Carbon Dioxide 19 mmol/L (22-29); Chloride 99 mmol/L (98-107); Creatinine Clr Calc Pharmacy 64.1047; Glomerular Filtration Rate 55.6 mL/min (90-130); Glucose 184 mg/dL (65-115); Osmolality Calculated 292 mOsm/kg (285-295); Sodium 130 mmol/L (136-145)
[2024-02-03 07:25] LABS: Anion Gap 15.9 (5-19); Potassium 3.9 mmol/L (3.5-5.1)
[2024-02-03 07:43] VITALS: BP 96/65; PULSE 95; RESP 18; TEMP 36.4; O2SAT 93
[2024-02-03 08:20] VITALS: PULSE 99; RESP 18; O2SAT 94
--- NOTE | 2024-02-03 09:00 | PC.NURSE ---
Addendum entered by Marine Crane RN 02/03/24 11:05: PICC line flushed with 20ML of NS per line. left intact for onc f/u. Original Note: patient and family verbalized understanding of discharge instructions, and home medications. patient was transported to oncology via wheelchair for [address] Johansen notified of critical WBC after discharge.
[2024-02-03 09:18] VITALS: PULSE 99; RESP 18; O2SAT 94
[2024-02-03 09:39] LABS: White Blood Count 34.09 10^3/uL (3.29-11.43)
[2024-02-03 09:41] LABS: Slide Review Slide Review Perform
--- NOTE | 2024-02-03 11:29 | P.DS_ITS ---
Discharge Providers Date of Admission: 01/29/24 16:12 Date of Discharge: February 03, 2024 Attending Provider at Admission: Kevin Madera MD Attending Provider at Discharge: Yeni Johansen MD Primary Care Provider: Brad Gilmore MD Diagnoses at Discharge Discharge Diagnosis (1) Refusal of blood transfusions as patient is Anabaptism: Status: Acute (2) Iron deficiency anemia due to chronic blood loss: Status: Acute (3) Leukocytosis: Status: Acute (4) Malignant neoplasm of lower third of esophagus: Status: Acute (5) Malignant neoplasm of fundus of stomach: Status: Acute (6) Acute kidney injury superimposed on CKD: Status: Acute (7) Acute hyponatremia: Status: Acute (8) Prostate enlargement: Status: Acute (9) Hypercalcemia: Status: Acute Reason for Visit Reason for Visit: Abd pain Hospital Course Hospital Course 63-year male with 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 King has a right-sided PICC line, not been able to eat much because of gastric cancer, presented with chief complaint of hypotension hyponatremia, significant leukocytosis acute on chronic kidney disease, Patient refused blood product such as albumin, we hydrated him well with IV fluids and started TPN in the hospital, patient is not a good candidate for a PEG tube placement secondary to stomach cancer, his functional status is gradually declining, he is not able to eat much, he is constantly losing weight, this is an unfortunate circumstance when patient is not able to recuperate well in order to his get palliative chemotherapy, he will be considered high risk for dehydration, IV nutrition will not be a good long-term solution, patient does try to eat through his mouth to some extent, he does get abdominal discomfort after eating. I had a very long discussion with the patient regarding current clinical scenario, current CT scan findings which is showing worsening of liver metastatic lesion, lymphadenopathy and stomach mass, he decided to opt for DNR/DNI status, in case of further worsening he may opt for hospice care at home he does not want to go to [place] [facility]. His hyponatremia did show improvement with IV fluid hydration, will give him salt tablets as well, he has been tolerating protein shakes in the hospital. ERIKA improved with hydration. His significant leukocytosis trending down, he remained afebrile, this leukocytosis seems cancer related however he was kept on broad-spectrum antibiotics in the hospital, cultures remain negative 02/02 patient was discharged from the hospital, we have kept his PICC line in, discontinue TPN, he directly went to the oncology clinic to get evaluated for IV chemotherapy because patient will not be able to tolerate p.o. chemotherapy at this point considering his stomach cancer and consistent pain. Discharge Data Studies Completed and Pending Completed Studies During Hospitalization Category Date Time Status CT abdomen pelvis w con* [id number] Stat Cat Scan 01/29/24 13:54 Completed XR chest 1V portable [id number] Routine Exams 02/02/24 11:50 Completed Pending at discharge Category Date Time Status Blood Culture Stat Lab 01/29/24 15:23 Results Radiology Impressions Abdomen/Pelvis CT 01/29/24 13:54 IMPRESSION: Very large infiltrating carcinoma involving the stomach with extensive hepatic metastatic disease noted. Metastatic lymph nodes also noted. These findings have all worsened significantly over the past 2 months. COMMENTS: Consistent with the [employer]'s Incidental Findings Committee white paper (J Am Cedric Radiol 2018): Any incidental renal lesion less than 1 cm or classified as too small to characterize, or any incidental cystic renal lesion characterized as simple-appearing, is likely benign. No follow-up imaging is recommended for these lesions per consensus recommendations based on imaging criteria. Chest X-Ray 02/02/24 11:50 IMPRESSION: Decreased inspiration. No aspiration pneumonia identified. Laboratory Results WBC 34.09 10^3/uL (3.29-11.43) H* 02/03/24 06:21 RBC 3.73 10^6/uL (3.85-5.65) L 02/03/24 06:21 Hgb 9.80 g/dL (11.27-16.99) L 02/03/24 06:21 Hct 32.3 % (37-53) L 02/03/24 06:21 MCV 86.6 fl (82-101) 02/03/24 06:21 MCH 26.3 pg (27-33) L 02/03/24 06:21 MCHC 30.3 g/dL (30-55) D 02/03/24 06:21 RDW 27.7 % (12.1-15.1) H 02/03/24 06:21 Plt Count 333 10^3/cmm (157-399) 02/03/24 06:21 MPV 10.8 fL (7.4-10.4) H 02/03/24 06:21 Neut % (Auto) 74.8 % 02/03/24 06:21 Lymph % (Auto) 6.5 % 02/03/24 06:21 [place] % (Auto) 7.7 % 02/03/24 06:21 Eos % (Auto) 0.7 % 02/03/24 06:21 Baso % (Auto) 0.5 % 02/03/24 06:21 Neut # (Auto) 25.51 10^3/uL (1.8-7.7) H 02/03/24 06:21 Lymph # (Auto) 2.2 10^3/uL (0.8-4.8) 02/03/24 06:21 [place] # (Auto) 2.6 10^3/uL (0.2-0.9) H 02/03/24 06:21 Eos # (Auto) 0.2 10^3/uL (0.0-0.8) 02/03/24 06:21 Baso # (Auto) 0.2 10^3/uL (0.0-0.1) H 02/03/24 06:21 Nucleated RBC % (auto) 1.3 % 02/03/24 06:21 Nucleated RBCs # 0.5 /100WBC 02/03/24 06:21 Sodium 130 mmol/L (136-145) L 02/03/24 06:21 Potassium 3.9 mmol/L (3.5-5.1) 02/03/24 06:21 Chloride 99 mmol/L (98-107) 02/03/24 06:21 Carbon Dioxide 19 mmol/L (22-29) L 02/03/24 06:21 Anion Gap 15.9 (5-19) 02/03/24 06:21 BUN 62 mg/dL (8-23) H 02/03/24 06:21 Creatinine 1.3 mg/dL (0.7-1.2) H 02/03/24 06:21 GFR Calculation 55.6 mL/min (90-130) L 02/03/24 06:21 Glucose 184 mg/dL (65-115) H 02/03/24 06:21 Calculated Osmolality 292 mOsm/kg (285-295) 02/03/24 06:21 Lactic Acid 4.0 mmol/L (0.5-2.2) H 01/29/24 14:00 Lactic Acid (Sepsis) 2.9 mmol/L (0.5-2.2) H 01/29/24 18:00 Calcium 8.8 mg/dL (8.5-10.5) 02/03/24 06:21 Phosphorus 3.7 mg/dL (2.5-4.5) 01/30/24 05:20 Magnesium 2.5 mg/dL (1.7-2.3) H 01/30/24 05:20 Total Bilirubin 2.6 mg/dL (0.15-1.2) H 02/02/24 06:05 AST 280 U/L (0-40) H 02/02/24 06:05 ALT 193 U/L (0-41) H 02/02/24 06:05 Alkaline Phosphatase 305 U/L (40-130) H 02/02/24 06:05 C-Reactive Protein 71.3 mg/L (0.0-4.9) H 01/30/24 05:20 Total Protein 4.4 g/dL (6.6-8.7) L 02/02/24 06:05 Albumin 2.0 g/dL (3.5-5.2) L 02/02/24 06:05 Globulin 2.4 g/dL (1.3-4.6) 02/02/24 06:05 Lipase 47 U/L (13-60) 01/29/24 15:15 Urine Color Dark yellow (Yellow) 01/29/24 15:45 Urine Appearance Clear (CLEAR) 01/29/24 15:45 Urine pH 5 (5-7) 01/29/24 15:45 Ur Specific [place] 1.025 (1.005-1.030) 01/29/24 15:45 Urine Protein Trace (Negative) 01/29/24 15:45 Urine Glucose (UA) Norm (Normal) 01/29/24 15:45 Urine Ketones 1+ (Negative) H 01/29/24 15:45 Urine Blood Neg (Negative) 01/29/24 15:45 Urine Nitrate Negative (Negative) 01/29/24 15:45 Urine Bilirubin 1+ (Negative) H 01/29/24 15:45 Urine Urobilinogen 1 mg/dL (Negative) H 01/29/24 15:45 Ur Leukocyte Esterase Negative (Negative) 01/29/24 15:45 Urine RBC Rare /hpf (0-2) 01/29/24 15:45 Urine WBC 0-4 /hpf (0-5) H 01/29/24 15:45 Ur Squamous Epith Cells 0-4 /hpf (0-5) H 01/29/24 15:45 Amorphous Sediment Not Reportable 01/29/24 15:45 Urine Bacteria Trace /hpf (NONE) 01/29/24 15:45 Urine Mucus None /hpf 01/29/24 15:45 Vancomycin Trough 14.8 ug/mL (10-15) 02/02/24 13:10 Vitals Last Vital Signs Temp 97.6 F 02/03/24 07:43 Pulse 99 02/03/24 09:18 Resp 18 02/03/24 09:18 BP 96/65 02/03/24 07:43 Pulse Ox 94 02/03/24 09:18 O2 Del Method Room Air 02/03/24 08:20 Discharge Plan Discharge Patient Disposition: Hospice - Home Condition: Fair Prescriptions: New sodium chloride 1,000 mg tablet,soluble 1,000 mg PO BID Qty: 20 0RF levofloxacin 750 mg tablet 750 mg PO DAILY 10 Days Qty: 10 0RF Continued gabapentin 300 mg capsule 300 mg PO DAILY PRN (Reason: Pain) loratadine [Claritin] 10 mg tablet 10 mg PO DAILY PRN (Reason: allergies) allopurinol 300 mg tablet 150 mg PO DAILY PRN (Reason: Gout) albuterol sulfate [Ventolin HFA] 90 mcg/actuation HFA aerosol inhaler 2 puff inhalation Q4H PRN (Reason: shortness of breath or wheezing) Qty: 8.5 1RF cyclobenzaprine 5 mg tablet 5 mg PO BID PRN (Reason: muscle spasm) 60 Days Qty: 120 1RF capecitabine 500 mg tablet 1,500 mg PO BID Qty: 84 2RF Rx Instructions: day 1-14 per 21-day cycle; administer with water 30 minutes after a meal capecitabine 150 mg tablet 150 mg PO BID Qty: 28 0RF Rx Instructions: administer with 3 - 500 mg tabs for each dose; must give with water 30 minutes after a meal pantoprazole [Protonix] 40 mg tablet,delayed release (DR/EC) 40 mg PO BID 42 Days Qty: 84 0RF sucralfate 1 gram tablet 1 g PO BID 56 Days Qty: 112 0RF ferrous sulfate 325 mg (65 mg iron) tablet 325 mg PO EVERY OTHER DAY Qty: 90 0RF omeprazole 20 mg capsule,delayed release(DR/EC) 20 mg PO DAILY PRN (Reason: Acid Reflux) zoledronic acid 4 mg Recon Soln 4 mg IV ONCE Rx Instructions: CLINIC USE Discontinued Injectafer 100 mg iron/2 mL solution 750 mg IV Q7D Rx Instructions: LAST AND FINAL INFUSSION ON 01/28/24- CLINIC USE atorvastatin 80 mg tablet 80 mg PO DAILY Discharge Orders: Discharge Order (Routine); Ordered 02/03/24 Ordered By: Yeni Johansen Referrals: [facility] Setup [Other] (Once pt has a pending Medicaid number, You can call this number to get In home Services arranged. They will ask you questions. Based off your answers the pt is given points. He has to have a certain number of points to qualify. ) [facility] [Outside] (Palliative Care) Brad Gilmore MD [Primary Care Provider] - Discharge Diet: Soft Mechanical Patient Instructions: Levofloxacin (By mouth), Sodium Chloride (By mouth), Hospice Care, Palliative Care (GEN), Opioid Safety Discharge Attestations Time Spent in Discharge Care*: greater than 30 min Quality Metrics Clinical Quality Measures [ No reported AMI, CVA or VTE this stay] Coding Level of Care Code Acute Code for Chg Fwd Diagnoses Refusal of blood transfusions as patient is Anabaptism Z53.1 Iron deficiency anemia due to chronic blood loss D50.0 Leukocytosis D72.829 Malignant neoplasm of lower third of esophagus C15.5 Malignant neoplasm of fundus of stomach C16.1 Acute kidney injury superimposed on CKD N17.9; N18.9 Acute hyponatremia E87.1 Prostate enlargement N40.0 Hypercalcemia E83.52
== END 2024-02-03 08:55 | disposition hospice, home (50) | DRG 641 ==
LOC: ER 16:15 → ICU 16:33 → MEDSURG 01-30 13:40
PROVIDERS: Internal Medicine; Admitting Provider Student in an Organized Health Care Education/Training Program; Emergency Provider Emergency Medicine; PCP Family Medicine Adult Medicine; Visit Provider Internal Medicine
DX: E87.0 Hyperosmolality and hypernatremia (principal); N17.9 Acute kidney failure, unspecified; C15.5 Malignant neoplasm of lower third of esophagus; C78.89 Secondary malignant neoplasm of other digestive organs; C78.7 Secondary malignant neoplasm of liver and intrahepatic bile duct; C77.9 Secondary and unspecified malignant neoplasm of lymph node, unspecified; E46 Unspecified protein-calorie malnutrition; N18.30 Chronic kidney disease, stage 3 unspecified; I95.9 Hypotension, unspecified; D50.0 Iron deficiency anemia secondary to blood loss (chronic); D72.829 Elevated white blood cell count, unspecified; N40.0 Benign prostatic hyperplasia without lower urinary tract symptoms; Z66 Do not resuscitate; Z51.5 Encounter for palliative care; E83.52 Hypercalcemia; Z87.891 Personal history of nicotine dependence; K21.9 Gastro-esophageal reflux disease without esophagitis; Z95.828 Presence of other vascular implants and grafts
CPT/HCPCS: 36415; 36592; 71045; 74177; 80048; 80053; 80202; 81001; 83605; 83690; 83735; 84100; 84295; 85025; 86140; 87040; 96365; 96367; 96372; 99285; C9113; J1170; J1650; J2405; J2543; J3370; J3411; J7030; J7040; J7050; J7120; Q9967

== ENCOUNTER 2024-02-16 16:45 | Observation (INO) | payer MEDICAID, SELFPAY ==
[2024-02-16] VITALS (65 sets, daily range): BP systolic 51–107; BP diastolic 33–69; PULSE 82–151; RESP 16–18; TEMP 36.5; O2SAT 94–100
--- NOTE | 2024-02-16 16:49 | ECG_ITS ---
[facility] Test Date: 2024-02-16 Pat Name: Juan R Hagan Department: Room: Gender: Male [employer]inter: : 1960 Requested By: Mook Palma Order Number: [id number] Radha MD: Will Christopher M.D. Measurements Intervals Prince Rate: 107 P: 76 IN: 164 QRS: 65 QRSD: 70 T: 96 QT: 308 QTc: 411 Interpretive Statements SINUS TACHYCARDIA LOW QRS VOLTAGE IN PRECORDIAL LEADS [QRS DEFLECTION < 1.0 mV IN CHEST LEADS] ST DEVIATION AND MODERATE T-WAVE ABNORMALITY, CONSIDER LATERAL ISCHEMIA [-0.1+ mV T-WAVE IN I/aVL/V5/V6] ST DEVIATION AND MODERATE T-WAVE ABNORMALITY, CONSIDER INFERIOR ISCHEMIA [-0.1+ mV T-WAVE IN II/aVF] Compared to ECG 12/23/2023 11:41:22 Low QRS voltage now present T-wave abnormality now present Possible ischemia now present Sinus rhythm no longer present Electronically Signed On 02-16-2024 18:06:58 CDT by Will Christopher M.D. [email or web address]
--- NOTE | 2024-02-16 16:49 | XRR_ITS ---
PROCEDURE INFORMATION: Exam: XR Chest Exam date and time: 02/16/2024 5:33 PM Age: 63 years old Clinical indication: Cough and dyspnea; Additional info: Dyspnea/cough TECHNIQUE: Imaging protocol: Radiologic exam of the chest. Views: 1 view. COMPARISON: CR XR chest 1V portable [id number] 02/02/2024 12:44 PM FINDINGS: Tubes, catheters and devices: Right-sided PICC line in place. Lungs: Unremarkable. No consolidation. Pleural spaces: Unremarkable. No pleural effusion. No pneumothorax. Heart/Mediastinum: Unremarkable. No cardiomegaly. Bones/joints: No acute osseous abnormality. Degenerative changes. XR/XR chest 1V portable [id number] IMPRESSION: No acute radiographic findings.
--- NOTE | 2024-02-16 16:55 | USR_ITS ---
PROCEDURE INFORMATION: Exam: US Duplex Right Upper Extremity Veins, Limited Exam date and time: 02/16/2024 5:07 PM Age: 63 years old Clinical indication: Pain; Arm, upper; Right; Prior surgery; Surgery date: 6+ months; Surgery type: Picc line; Additional info: Picc line sudden onset severe edema and pain TECHNIQUE: Imaging protocol: Real-time duplex ultrasound of the right Upper Extremity with 2-D doherty scale, color Doppler flow and spectral waveform analysis with image documentation. Limited exam focused on the right upper extremity veins. COMPARISON: US renal BI* [id number] 10/01/2021 10:13 AM FINDINGS: Right deep veins: PICC line in place. Hypoechoic, nearly occlusive thrombus in the subclavian and axillary veins. The internal jugular and brachial veins are patent without thrombus. Superficial veins: PICC line in place. Cephalic vein not interrogated. Visualized basilic vein patent without thrombus. Soft tissues: Unremarkable. US/[place] [id number] IMPRESSION: Hypoechoic, nearly occlusive thrombus in the subclavian and axillary veins.
--- NOTE | 2024-02-16 16:55 | CTR_ITS ---
PROCEDURE INFORMATION: Exam: CT Abdomen And Pelvis Without Contrast Exam date and time: 02/16/2024 6:44 PM Age: 63 years old Clinical indication: Abdominal pain; Generalized; Patient HX: Low BP; Additional info: Abd pain TECHNIQUE: Imaging protocol: Computed tomography of the abdomen and pelvis without contrast. Axial, coronal and sagittal reformatted images were created and reviewed. Radiation optimization: All CT scans at this facility use at least one of these dose optimization techniques: automated exposure control; mA and/or kV adjustment per patient size (includes targeted exams where dose is matched to clinical indication); or iterative reconstruction. COMPARISON: CT abdomen pelvis w con* [id number] 01/29/2024 2:10 PM RADIATION DOSE METRICS: Total DLP (mGy-cm): 870.06 FINDINGS: Lungs: Mild peribronchial thickening, suggestive of airway inflammation. Dependent subsegmental consolidations, likely due to atelectasis. Left lower lobe calcified granuloma. Pleural spaces: Small [id number]-[id number]-right pleural effusions, new on the left and mildly increased on the right. Diaphragm: Moderate-sized hiatal hernia. Liver: Extensive hepatic metastatic disease, similar to prior. Gallbladder and bile ducts: No radiodense gallstones. No biliary ductal dilatation. Pancreas: Unremarkable. Spleen: Coarse calcified splenic granuloma. Adrenal glands: Normal. No mass. Kidneys and ureters: 2.7 cm left renal cyst (no follow-up is indicated based on the imaging appearance). Nonobstructing left renal calculus. No hydronephrosis. Stomach and bowel: Large, irregular, lobulated soft tissue mass in the region of the gastric fundus and cardia, as well as the distal esophagus, similar to prior. No obstruction. No pneumatosis. Appendix: Normal. Intraperitoneal space: Small ascites. No organized collection. No free air. Vasculature: Mild atherosclerotic disease. No aneurysm. Lymph nodes: Enlarged epiphrenic and periportal lymph nodes, similar to prior. Urinary bladder: Unremarkable as visualized. Reproductive: Enlarged, nodular prostate, projecting into the urinary bladder base. Bones/joints: No acute osseous abnormality. Osteopenia. Degenerative changes. Soft tissues: Anasarca. Fat containing left greater than right inguinal hernias. CT/CT abdomen pelvis wo con [id number] IMPRESSION: 1. Small xaju-qcjnavp-absk-right pleural effusions, new on the left and mildly increased on the right. No other significant interval change. 2. Additional findings, as above. COMMENTS: Consistent with the [employer]'s Incidental Findings Committee white paper (J Am Cedric Radiol 2018): Any incidental renal lesion less than 1 cm or classified as too small to characterize, or any incidental cystic renal lesion characterized as simple-appearing, is likely benign. No follow-up imaging is recommended for these lesions per consensus recommendations based on imaging criteria.
--- NOTE | 2024-02-16 17:01 | W.ED.GENADLT ---
Documented by User: Mook Ward DO 02/16/24 18:21 HPI - General Adult General: Chief complaint: General Medical Stated complaint: low bp, bilat edema Time Seen by Provider: 02/16/24 16:48 Source: patient Mode of arrival: EMS History of Present Illness: 63-year-old male with a history of esophageal gastric cancer presents to the emergency room with complaints of hypotension. Woke this morning with significant swelling and tenderness in his right arm. He does have a PICC line and has been getting IV antibiotics through the PICC line. No history of any blood clots he has edema in his left arm as well as bilateral in the lower extremities he states that is actually better. He was recently hospitalized his discharge summary was reviewed patient has a very large adeno CA at the esophageal gastric junction with mets to the liver that seem to be worsening. He is also had acute kidney injury and hyponatremia. He is Religion and and has declined blood transfusions. In the discharge summary to most recent hospitalization if he worsened to there was talk of him going to hospice care. When I asked the patient about the use of the PICC line he indicated he was getting chemotherapy rather than antibiotics through the PICC line. Onset (ago): hour(s) Relieving factors: none Exacerbating factors: none Associated symptoms: Reports dyspnea, nausea and weakness; Deny chest pain, confusion, cough, diaphoresis, decreased appetite, fevers/chills, headache(s), malaise, rash, palpitations, seizures, short of breath, syncope or vomiting Review of Systems Const: Denies: fever(s), chills, malaise or diaphoresis Card: Reports: swelling of feet/ankles; Denies: chest pain, palpitations or syncope Resp: Reports: dyspnea GI: Reports: abdominal pain and nausea; Denies: vomiting : Denies: dysuria, urinary frequency or urinary urgency Musc: Denies: neck pain or back pain Skin/Breast: Denies: rash Neuro: Denies: headache(s) or confusion PFSH ED PFSH: Medical History Acute hyponatremia Leukocytosis Hypercalcemia Malignant neoplasm of fundus of stomach Malignant neoplasm of lower third of esophagus Iron deficiency anemia due to chronic blood loss Prostate enlargement Anemia Abnormal liver CT Leukocytosis Acute kidney injury superimposed on CKD ERIKA (acute kidney injury) Mass of esophagus Refusal of blood transfusions as patient is Religion COPD (chronic obstructive pulmonary disease) Former cigarette smoker Encounter for health maintenance examination in adult Hematuria, microscopic BPH (benign prostatic hyperplasia) CKD (chronic kidney disease) stage 3, GFR 30-59 ml/min 11/18/2023 creatinine 1.8 with a GFR 38 Muscle spasms of both lower extremities Hypertension Hyperlipidemia GERD (gastroesophageal reflux disease) Chronic gout Osteoarthritis Surgical History History of esophagogastroduodenoscopy (EGD) Dr. Fitzgerald on 12/24/2023 with lower one third esophageal and gastric mass History of tonsillectomy History of hand surgery right Family History Brother No problems noted. Father Lung disease Ruptured aneurysm of artery Mother Stroke Social History Smoking and tobacco/nicotine status: former use of tobacco/nicotine Quit status (tobacco/nicotine): has quit using Former quit date comment: He began smoking at age 14 and quit sometime in his 20s. Alcohol intake: former Former alcohol use details: He had alcohol use in the past, but never heavy. He quit 3 to 4 years ago. Substance/Drug Use: never Physical Exam Const: GENERAL APPEARANCE: cooperative and comfortable ORIENTATION/CONSCIOUSNESS: Yes awake, Yes oriented to person, Yes oriented to place and Yes oriented to time HENMT: COMMON NORMALS: normocephalic, atraumatic and hearing grossly normal bilaterally HEAD & SCALP: normocephalic and atraumatic Resp: COMMON NORMALS: normal respiratory effort, No retractions, No use of accessory muscles and clear to auscultation bilaterally AUSCULTATION: clear to auscultation bilaterally Cardio: COMMON NORMALS: regular rate, regular rhythm and No murmurs present (Cardio) RATE: regular rate RHYTHM: regular rhythm GI: COMMON NORMALS: Soft to palpation and No hepatosplenomegaly present AUSCULTATION: Yes normoactive bowel sounds PALPATION: Yes Soft to palpation, No Tenderness to palpation present (GI), No Guarding due to palpation present (GI) and Yes No hepatosplenomegaly present Extremity: OTHER: 2+ edema of the right arm with a PICC line in place exquisitely tender throughout the arm to light touch 1+ edema bilateral the lower extremities and the left arm Neuro: SENSORIUM/ORIENTATION: Yes oriented to person, Yes oriented to place and Yes oriented to time Skin: COMMON NORMALS: no rashes or lesions noted GENERAL SKIN EXAM: no rashes or lesions noted Course Vital Signs: Vital signs: Vital Signs Temperature 97.7 F 02/16/24 16:51 Pulse Rate 147 H 02/17/24 00:47 Respiratory Rate 24 H 02/17/24 01:44 Blood Pressure 75/52 02/17/24 00:47 Pulse Oximetry 100 02/17/24 00:47 Oxygen Delivery Me thod Room Air 02/16/24 17:36 MDM - General Adult Medical Decision Making Care signed out to Dr. Lucia at change of shift. See final notes for diagnosis and disposition. Lab Data 02/16/24 17:23 02/16/24 17:23 Radiology Impressions Chest X-Ray 02/16/24 16:49 IMPRESSION: No acute radiographic findings. Abdomen/Pelvis CT 02/16/24 16:55 IMPRESSION: 1. Small pshy-rnewggn-kxzg-right pleural effusions, new on the left and mildly increased on the right. No other significant interval change. 2. Additional findings, as above. COMMENTS: Consistent with the [employer]'s Incidental Findings Committee white paper (J Am Cedric Radiol 2018): Any incidental renal lesion less than 1 cm or classified as too small to characterize, or any incidental cystic renal lesion characterized as simple-appearing, is likely benign. No follow-up imaging is recommended for these lesions per consensus recommendations based on imaging criteria. Venous Duplex 02/16/24 16:55 IMPRESSION: Hypoechoic, nearly occlusive thrombus in the subclavian and axillary veins. ADDENDUM: 02/16/24 5765 ADDENDUM: THIS REPORT CONTAINS FINDINGS THAT MAY BE CRITICAL TO PATIENT CARE. The findings were verbally communicated via telephone conference with Dr. Lucia at 6:33 PM CDT on 02/16/2024. The findings were acknowledged and understood. Laboratory Results WBC 8.39 10^3/uL (3.29-11.43) 02/16/24 17:23 RBC 2.46 10^6/uL (3.85-5.65) L 02/16/24 17:23 Hgb 7.20 g/dL (11.27-16.99) L 02/16/24 17:23 Hct 24.0 % (37-53) L 02/16/24 17:23 MCV 97.6 fl (82-101) 02/16/24 17:23 MCH 29.3 pg (27-33) 02/16/24 17:23 MCHC 30.0 g/dL (30-55) 02/16/24 17:23 RDW 33.7 % (12.1-15.1) H 02/16/24 17:23 Plt Count 350 10^3/cmm (157-399) 02/16/24 17:23 MPV 10.9 fL (7.4-10.4) H 02/16/24 17:23 Neut % (Auto) 81.9 % 02/16/24 17:23 Lymph % (Auto) 9.7 % 02/16/24 17:23 [place] % (Auto) 7.4 % 02/16/24 17:23 Eos % (Auto) 0.5 % 02/16/24 17:23 Baso % (Auto) 0.1 % 02/16/24 17:23 Neut # (Auto) 6.88 10^3/uL (1.8-7.7) 02/16/24 17:23 Lymph # (Auto) 0.8 10^3/uL (0.8-4.8) 02/16/24 17:23 [place] # (Auto) 0.6 10^3/uL (0.2-0.9) 02/16/24 17:23 Eos # (Auto) 0.0 10^3/uL (0.0-0.8) 02/16/24 17:23 Baso # (Auto) 0.0 10^3/uL (0.0-0.1) 02/16/24 17: Nucleated RBC % (auto) 0.7 % 02/16/24 17: Nucleated RBCs # 0.1 /100WBC 02/16/24 17:23 Sodium 131 mmol/L (136-145) L 02/16/24 17:23 Potassium 5.3 mmol/L (3.5-5.1) H 02/16/24 17:23 Chloride 98 mmol/L (98-107) 02/16/24 17:23 Carbon Dioxide 13 mmol/L (22-29) L 02/16/24 17:23 Anion Gap 25.3 (5-19) H 02/16/24 17:23 BUN 106 mg/dL (8-23) H* D 02/16/24 17:23 Creatinine 2.3 mg/dL (0.7-1.2) H 02/16/24 17:23 GFR Calculation 28.8 mL/min (90-130) L 02/16/24 17:23 Glucose 68 mg/dL (65-115) 02/16/24 17:23 Calculated Osmolality 304 mOsm/kg (285-295) H 02/16/24 17:23 Lactic Acid 2.9 mmol/L (0.5-2.2) H 02/16/24 17:23 Calcium 7.0 mg/dL (8.5-10.5) L 02/16/24 17:23 Magnesium 2.0 mg/dL (1.7-2.3) 02/16/24 17:23 Total Bilirubin 2.5 mg/dL (0.15-1.2) H 02/16/24 17:23 AST 99 U/L (0-40) H 02/16/24 17:23 ALT 61 U/L (0-41) H 02/16/24 17:23 Alkaline Phosphatase 587 U/L (40-130) H 02/16/24 17:23 Creatine Kinase 64 U/L (39-308) 02/16/24 17:23 Troponin T Baseline 37 ng/L (0-15) H 02/16/24 17:23 Total Protein 4.3 g/dL (6.6-8.7) L 02/16/24 17:23 Albumin 2.1 g/dL (3.5-5.2) L 02/16/24 17:23 Globulin 2.2 g/dL (1.3-4.6) 02/16/24 17:23 Lipase 53 U/L (13-60) 02/16/24 17:23 Urine Color Yellow (Yellow) 02/16/24 19:01 Urine Appearance Clear (CLEAR) 02/16/24 19:01 Urine pH 5 (5-7) 02/16/24 19:01 Ur Specific [place] 1.010 (1.005-1.030) 02/16/24 19:01 Urine Protein Neg (Negative) 02/16/24 19:01 Urine Glucose (UA) Norm (Normal) 02/16/24 19:01 Urine Ketones 1+ (Negative) H 02/16/24 19:01 Urine Blood Trace (Negative) H 02/16/24 19:01 Urine Nitrate Negative (Negative) 02/16/24 19: Urine Bilirubin Neg (Negative) 02/16/24 19:01 Urine Urobilinogen 1 mg/dL (Negative) H 02/16/24 19:01 Ur Leukocyte Esterase Negative (Negative) 02/16/24 19:01 Urine RBC 0-4 /hpf (0-2) H 02/16/24 19:01 Urine WBC 0-4 /hpf (0-5) H 02/16/24 19:01 Ur Squamous Epith Cells 0-4 /hpf (0-5) H 02/16/24 19: Amorphous Sediment Not Reportable 02/16/24 19: Urine Bacteria Trace /hpf (NONE) 02/16/24 19:01 XR interpretation done by ED provider, pending radiology final review Discharge Plan Discharge Patient Disposition: Admitted As Inpatient Admit Provider: Staci Grullon Clinical Impression: Anemia due to blood loss, Metastatic adenocarcinoma, Acute hypotension, Acute thrombosis of right subclavian vein, Need for comfort care Condition: Stable Coding Level of Care Code ED Bailer Tenders Supervisor for Chg Fwd Documented by User: Cliff Lucia DO 02/17/24 03:08 HPI - General Adult General: Chief complaint: General Medical Stated complaint: low bp, bilat edema Time Seen by Provider: 02/16/24 16:48 PFSH ED PFSH: Medical History Acute hyponatremia Leukocytosis Hypercalcemia Malignant neoplasm of fundus of stomach Malignant neoplasm of lower third of esophagus Iron deficiency anemia due to chronic blood loss Prostate enlargement Anemia Abnormal liver CT Leukocytosis Acute kidney injury superimposed on CKD ERIKA (acute kidney injury) Mass of esophagus Refusal of blood transfusions as patient is Religion COPD (chronic obstructive pulmonary disease) Former cigarette smoker Encounter for health maintenance examination in adult Hematuria, microscopic BPH (benign prostatic hyperplasia) CKD (chronic kidney disease) stage 3, GFR 30-59 ml/min 11/18/2023 creatinine 1.8 with a GFR 38 Muscle spasms of both lower extremities Hypertension Hyperlipidemia GERD (gastroesophageal reflux disease) Chronic gout Osteoarthritis Surgical History History of esophagogastroduodenoscopy (EGD) Dr. Fitzgerald on 12/24/2023 with lower one third esophageal and gastric mass History of tonsillectomy History of hand surgery right Family History Brother No problems noted. Father Lung disease Ruptured aneurysm of artery Mother Stroke Social History Smoking and tobacco/nicotine status: former use of tobacco/nicotine Quit status (tobacco/nicotine): has quit using Former quit date comment: He began smoking at age 14 and quit sometime in his 20s. Alcohol intake: former Former alcohol use details: He had alcohol use in the past, but never heavy. He quit 3 to 4 years ago. Substance/Drug Use: never Course Vital Signs: Vital signs: Vital Signs Temperature 97.7 F 02/16/24 16:51 Pulse Rate 147 H 02/17/24 00:47 Respiratory Rate 24 H 02/17/24 01:44 Blood Pressure 75/52 02/17/24 00:47 Pulse Oximetry 100 02/17/24 00:47 Oxygen Delivery Me thod Room Air 02/16/24 17:36 MDM - General Adult Medical Decision Making Care signed out to Dr. Lucia at change of shift. See final notes for diagnosis and disposition. Had multiple extensive conversations with the family about hospice, comfort care, admission here or being transferred out. At first family and patient wanted to be transferred out to see if there is anything else that could be done at a bigger facility such as [facility] [place] was called and the secretary of state was talked to about this patient they said there is nothing they can do other than comfort care and send patient is unwilling to take blood and they cannot give an anticoagulant due to the blood loss there is nothing more that they can do. Discussed this with the family and family is okay with placing the patient inpatient here with a hospice consult. Discussed the case with Dr. Grullon who is going to come discussed this with the family anticipate patient will be admitted for comfort measures and hospice placement. Lab Data 02/16/24 17:23 02/16/24 17:23 Radiology Impressions Chest X-Ray 02/16/24 16:49 IMPRESSION: No acute radiographic findings. Abdomen/Pelvis CT 02/16/24 16:55 IMPRESSION: 1. Small pjcn-qswaaay-jrev-right pleural effusions, new on the left and mildly increased on the right. No other significant interval change. 2. Additional findings, as above. COMMENTS: Consistent with the [employer]'s Incidental Findings Committee white paper (J Am Cedric Radiol 2018): Any incidental renal lesion less than 1 cm or classified as too small to characterize, or any incidental cystic renal lesion characterized as simple-appearing, is likely benign. No follow-up imaging is recommended for these lesions per consensus recommendations based on imaging criteria. Venous Duplex 02/16/24 16:55 IMPRESSION: Hypoechoic, nearly occlusive thrombus in the subclavian and axillary veins. ADDENDUM: 02/16/24 1745 ADDENDUM: THIS REPORT CONTAINS FINDINGS THAT MAY BE CRITICAL TO PATIENT CARE. The findings were verbally communicated via telephone conference with Dr. Lucia at 6:33 PM CDT on 02/16/2024. The findings were acknowledged and understood. Laboratory Results WBC 8.39 10^3/uL (3.29-11.43) 02/16/24 17: RBC 2.46 10^6/uL (3.85-5.65) L 02/16/24 17: Hgb 7.20 g/dL (11.27-16.99) L 02/16/24 17: Hct 24.0 % (37-53) L 02/16/24 17: MCV 97.6 fl (82-101) 02/16/24 17: MCH 29.3 pg (27-33) 02/16/24 17: MCHC 30.0 g/dL (30-55) 02/16/24 17:23 RDW 33.7 % (12.1-15.1) H 02/16/24 17:23 Plt Count 350 10^3/cmm (157-399) 02/16/24 17:23 MPV 10.9 fL (7.4-10.4) H 02/16/24 17:23 Neut % (Auto) 81.9 % 02/16/24 17:23 Lymph % (Auto) 9.7 % 02/16/24 17:23 [place] % (Auto) 7.4 % 02/16/24 17:23 Eos % (Auto) 0.5 % 02/16/24 17:23 Baso % (Auto) 0.1 % 02/16/24 17:23 Neut # (Auto) 6.88 10^3/uL (1.8-7.7) 02/16/24 17:23 Lymph # (Auto) 0.8 10^3/uL (0.8-4.8) 02/16/24 17:23 [place] # (Auto) 0.6 10^3/uL (0.2-0.9) 02/16/24 17:23 Eos # (Auto) 0.0 10^3/uL (0.0-0.8) 02/16/24 17:23 Baso # (Auto) 0.0 10^3/uL (0.0-0.1) 02/16/24 17:23 Nucleated RBC % (auto) 0.7 % 02/16/24 17: Nucleated RBCs # 0.1 /100WBC 02/16/24 17:23 Sodium 131 mmol/L (136-145) L 02/16/24 17:23 Potassium 5.3 mmol/L (3.5-5.1) H 02/16/24 17:23 Chloride 98 mmol/L (98-107) 02/16/24 17:23 Carbon Dioxide 13 mmol/L (22-29) L 02/16/24 17:23 Anion Gap 25.3 (5-19) H 02/16/24 17:23 BUN 106 mg/dL (8-23) H* D 02/16/24 17:23 Creatinine 2.3 mg/dL (0.7-1.2) H 02/16/24 17:23 GFR Calculation 28.8 mL/min (90-130) L 02/16/24 17:23 Glucose 68 mg/dL (65-115) 02/16/24 17:23 Calculated Osmolality 304 mOsm/kg (285-295) H 02/16/24 17:23 Lactic Acid 2.9 mmol/L (0.5-2.2) H 02/16/24 17:23 Calcium 7.0 mg/dL (8.5-10.5) L 02/16/24 17:23 Magnesium 2.0 mg/dL (1.7-2.3) 02/16/24 17:23 Total Bilirubin 2.5 mg/dL (0.15-1.2) H 02/16/24 17:23 AST 99 U/L (0-40) H 02/16/24 17:23 ALT 61 U/L (0-41) H 02/16/24 17:23 Alkaline Phosphatase 587 U/L (40-130) H 02/16/24 17:23 Creatine Kinase 64 U/L (39-308) 02/16/24 17:23 Troponin T Baseline 37 ng/L (0-15) H 02/16/24 17:23 Total Protein 4.3 g/dL (6.6-8.7) L 02/16/24 17:23 Albumin 2.1 g/dL (3.5-5.2) L 02/16/24 17:23 Globulin 2.2 g/dL (1.3-4.6) 02/16/24 17:23 Lipase 53 U/L (13-60) 02/16/24 17:23 Urine Color Yellow (Yellow) 02/16/24 19:01 Urine Appearance Clear (CLEAR) 02/16/24 19:01 Urine pH 5 (5-7) 02/16/24 19:01 Ur Specific [place] 1.010 (1.005-1.030) 02/16/24 19:01 Urine Protein Neg (Negative) 02/16/24 19: Urine Glucose (UA) Norm (Normal) 02/16/24 19:01 Urine Ketones 1+ (Negative) H 02/16/24 19:01 Urine Blood Trace (Negative) H 02/16/24 19:01 Urine Nitrate Negative (Negative) 02/16/24 19: Urine Bilirubin Neg (Negative) 02/16/24 19:01 Urine Urobilinogen 1 mg/dL (Negative) H 02/16/24 19:01 Ur Leukocyte Esterase Negative (Negative) 02/16/24 19:01 Urine RBC 0-4 /hpf (0-2) H 02/16/24 19:01 Urine WBC 0-4 /hpf (0-5) H 02/16/24 19:01 Ur Squamous Epith Cells 0-4 /hpf (0-5) H 02/16/24 19:01 Amorphous Sediment Not Reportable 02/16/24 19:01 Urine Bacteria Trace /hpf (NONE) 02/16/24 19:01 Discharge Plan Discharge Patient Disposition: Admitted As Inpatient Admit Provider: Staci Grullon Clinical Impression: Anemia due to blood loss, Metastatic adenocarcinoma, Acute hypotension, Acute thrombosis of right subclavian vein, Need for comfort care Condition: Stable Coding Level of Care Code ED Bailer Tenders Supervisor for Krys Biggs
[2024-02-16] MEDS: sodium chloride 0.9% 1,000 ML 999 ML IV (17:24)
[2024-02-16 17:35] LABS: Basophils % 0.1 %; Eosinophils % 0.5 %; Lymphocytes # 0.8 10^3/uL (0.8-4.8); Lymphocytes % 9.7 %; Mean Corpuscular Hemoglobin 29.3 pg (27-33); Mean Corpuscular Volume 97.6 fl (82-101); Mean Platelet Volume 10.9 fL (7.4-10.4); Monocytes # 0.6 10^3/uL (0.2-0.9); Monocytes % 7.4 %; Neutrophils # 6.88 10^3/uL (1.8-7.7); Neutrophils % 81.9 %; Nucleated Red Blood Cells # 0.1 /100WBC; Nucleated Red Blood Cells % 0.7 %; Platelet Count 350 10^3/cmm (157-399); Red Blood Count 2.46 10^6/uL (3.85-5.65); Red Cell Distribution Width 33.7 % (12.1-15.1); White Blood Count 8.39 10^3/uL (3.29-11.43)
[2024-02-16] MEDS: norepinephrine 4 MG/250 ML BAG 30 MG IV (17:43)
[2024-02-16 17:56] LABS: Troponin(5th) Baseline 37 ng/L (0-15)
[2024-02-16 17:57] LABS: Lactic Sepsis W/Reflex 2.9 mmol/L (0.5-2.2)
[2024-02-16 18:25] LABS: Alanine Aminotransferase 61 U/L (0-41); Albumin Level 2.1 g/dL (3.5-5.2); Alkaline Phosphatase 587 U/L (40-130); Anion Gap 25.3 (5-19); Aspartate Amino Transferase 99 U/L (0-40); Carbon Dioxide 13 mmol/L (22-29); Chloride 98 mmol/L (98-107); Creatine Phosphokinase 64 U/L (39-308); Globulin 2.2 g/dL (1.3-4.6); Glomerular Filtration Rate 28.8 mL/min (90-130); Glucose 68 mg/dL (65-115); Lipase 53 U/L (13-60); Osmolality Calculated 304 mOsm/kg (285-295); Potassium 5.3 mmol/L (3.5-5.1); Sodium 131 mmol/L (136-145); Total Bilirubin 2.5 mg/dL (0.15-1.2); Total Protein 4.3 g/dL (6.6-8.7)
[2024-02-16 18:28] LABS: Creatinine Clr Calc Pharmacy 35.7231
[2024-02-16 18:29] LABS: Blood Urea Nitrogen 106 mg/dL (8-23)
--- NOTE | 2024-02-16 18:49 | ECG_ITS ---
[facility] Test Date: 2024-02-16 Pat Name: Juan R Hagan Department: Room: Gender: Male Gum Remover: : 1960 Requested By: Mook Palma Order Number: [id number] Radha MD: Lula Cadena M.D. Measurements Intervals [place] Rate: 110 P: 139 ID: [id number] QRS: 104 QRSD: 69 T: 168 QT: 299 QTc: 406 Interpretive Statements SINUS TACHYCARDIA LOW QRS VOLTAGE [QRS DEFLECTION < 0.5/1.0 mV IN LIMB/CHEST LEADS] LATERAL MYOCARDIAL INFARCTION , OF INDETERMINATE AGE [40+ ms Q WAVE AND/OR ST/T ABNORMALITY IN I/aVL/V5/V6] Diffuse nonspecific ST-T changes Compared to ECG 02/16/2024 17:29:46 Myocardial infarct finding now present T-wave abnormality no longer present Possible ischemia no longer present Electronically Signed On 02-18-2024 0:26:58 CDT by Lula Cadena M.D. [id number]
[2024-02-16 19:20] LABS: Reflex Lactate Order REFLEX LACTIC ORDERD
[2024-02-16 19:48] LABS: Bilirubin Urine Neg (Negative); Blood Urine Trace (Negative); Glucose Urine UA Norm (Normal); Ketones Urine 1+ (Negative); Leukocyte Esterase Urine Negative (Negative); Nitrate Urine Negative (Negative); Protein Urine Neg (Negative); Urine Appearance Clear (CLEAR); Urine Color Yellow (Yellow); Urobilinogen Urine 1 mg/dL (Negative); pH Urine 5 (5-7)
[2024-02-16 19:49] LABS: Add Urine Culture? No; Add Urine Microscopic? YES; Bacteria Urine TRACE /hpf; RBC Urine 0-4 /hpf (0-2); Squamous Epithelial Cell Urine 0-4 /hpf (0-5); WBC Urine 0-4 /hpf (0-5)
--- NOTE | 2024-02-16 22:00 | PC.NURSE ---
DR. BIANCHI AND THIS NURSE HAVE SPOKEN WITH FAMILY ON MULTIPLE ACOUNTS REGARDING FURTHER CARE PLAN FOR PT. FAMILY ND PT WOULD LIKE TO BE TRANSFERRED IF ABLE
[2024-02-16] MEDS: pantoprazole 40 mg SDV IVP (22:06)
[2024-02-16] MEDS: ondansetron 2 mg/ML SDV 2 mL 4 MG IVP (22:06)
--- NOTE | 2024-02-16 22:14 | PC.NURSE ---
ARIAS ABARCA GAVE VERBAL ORDERS TO STOP LEVOPHED AND START DOPAMINE DRIP.
[2024-02-16] MEDS: DOPamine drip 400 MG/250 ML PREMIX 15.3100000000000005 MG IV (22:15)
--- NOTE | 2024-02-16 22:23 | PC.NURSE ---
DR. BIANCHI GAVE VERBAL ORDERS TO TITRATE DOPAMINE TO MAX RATE UNTIL BP REACHES STABILIZATION THEN TITRATE PER POLICY
--- NOTE | 2024-02-16 22:49 | ECG_ITS ---
[facility] Test Date: 2024-02-16 Pat Name: Juan R Hagan Department: Room: Gender: Male Sample Worker: : 1960 Requested By: Mook Palma Order Number: [id number] Radha MD: Lula Cadena M.D. Measurements Intervals [place] Rate: 145 P: 4 GA: 139 QRS: 53 QRSD: 78 T: 60 QT: 329 QTc: 512 Interpretive Statements Atrial fibrillation with a rapid ventricular rate LOW QRS VOLTAGE [QRS DEFLECTION < 0.5/1.0 mV IN LIMB/CHEST LEADS] MODERATE ST DEPRESSION [0.05+ mV ST DEPRESSION] Compared to ECG 02/16/2024 19:34:21 ST (T wave) deviation now present Myocardial infarct finding no longer present Electronically Signed On 02-18-2024 0:28:21 CDT by Lula Cadena M.D. [id number]
--- NOTE | 2024-02-16 23:07 | PC.NURSE ---
Per hospice nurse, In-Home services will not be available until tomorrow due to intake paperwork.
--- NOTE | 2024-02-16 23:09 | PC.NURSE ---
PER DR. BIANCHI, AFTER ATTEMPTING TRANSFER AND HOSPICE PLACEMENT, PT WILL BE ADMITTED TO [facility] FOR COMFORT CARE.
--- NOTE | 2024-02-16 23:11 | P.HP_ITS ---
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 Patient opted for DNR/DNI status and stated that in case of further worsening he would opt for hospice care at home and did not want to go to a [facility]. He had a PICC line placed which was previously used for TPN. After discharge from hospital he went straight to oncology and was given a dose of IV chemotherapy after seeing the oncologist. He was supposed to have follow-up in next 2 weeks however today presented to the hospital with complaint of hypotension and significant swelling and tenderness and arm. On arrival blood pressure 95/69, saturating 100% on room air, tachycardic to 150s. Patient has reported black tarry stools over the last few weeks hemoglobin has dropped from 11.2 at discharge previously to 7.2 today. Patient continues to be hypotensive and was placed on Levophed. He was also bradycardic for which dopamine was added. Potassium 5.3, BUN 106, creatinine 2.3, bicarb 13. Lactic acid 2.9 on arrival. These labs are included from 5:30 PM this evening. Patient is a Holiness and refuses to have infusion of albumin or any blood products. He is also been diagnosed with a occlusive thrombus in subclavian and axillary veins. He is not a candidate for anticoagulation at this time. ER physician had multiple conversations with family about hospice comfort care admission here or being transferred out. At first family and patient wanted to be transferred out to higher level of care for second opinion in regards to further care. Case was discussed with blood bank laboratory technician at [facility] who also stated there there is no further treatment that can be offered to this patient given his terminal cancer and limitations on treatment. ER physician reach out to family again and family would like to take patient home with hospice. Patient in agreement with the above as well. I evaluated patient at bedside. Answered all of the questions family had. They are wanting to take patient home now however explained to them that we cannot arrange for hospice at this time and we would have to wait till the morning however given patient's vitals, current labs I believe he may not survive next 24 to 48 hours. I explained to them what could fit measures entails. His vasopressors will be stopped. He will not get antibiotics or IV fluids. No further testing will be done. Patient will be kept comfortable and supportive care will be provided. Family and patient in agreement.. We will admit for comfort measures at this time. Medications/Allergies Home Medications Medication Instructions Recorded Confirmed Last Taken Type albuterol sulfate 90 mcg/actuation 2 puff inhalation Q4H PRN 11/18/23 02/03/24 01/20/24 Rx aerosol inhaler (Ventolin HFA) shortness of breath or wheezing #8.5 grams cyclobenzaprine 5 mg tablet 5 mg PO BID PRN muscle spasm 60 11/18/23 02/03/24 01/20/24 Rx days #120 tabs ferrous sulfate 325 mg (65 mg 325 mg PO EVERY OTHER DAY #90 tabs 12/25/23 02/03/24 01/20/24 Rx iron) tablet sucralfate 1 gram tablet 1 g PO BID 8 weeks #112 tabs 12/25/23 02/03/24 01/20/24 Rx allopurinol 300 mg tablet 150 mg PO DAILY PRN Gout 01/01/24 02/03/24 01/20/24 History gabapentin 300 mg capsule 300 mg PO DAILY PRN Pain 01/01/24 02/03/24 01/20/24 History loratadine 10 mg tablet (Claritin) 10 mg PO DAILY PRN allergies 01/01/24 02/03/24 01/20/24 History capecitabine 150 mg tablet 150 mg PO BID #28 tabs 01/22/24 02/03/24 Unknown Rx capecitabine 500 mg tablet 1,500 mg (3 x 500 mg) PO BID #84 01/22/24 02/03/24 Unknown Rx tabs omeprazole 20 mg capsule,delayed 20 mg PO DAILY PRN Acid Reflux 01/29/24 02/03/24 Unknown History release zoledronic acid 4 mg intravenous 4 mg IV ONCE 01/29/24 02/03/24 01/28/24 History solution sodium chloride 1,000 mg soluble 1,000 mg PO BID #20 tabs 02/02/24 02/03/24 Unknown Rx tablet morphine 15 mg immediate release 15 mg PO BID PRN pain 30 days #60 02/03/24 02/03/24 Unknown Rx tablet tabs Allergies Allergy/AdvReac Type Severity Reaction Status Date / Time hydrochlorothiazide Allergy Intermediate ADR-Muscle Verified 02/03/24 09:25 Pain PFSH Acute 2 PFSH: Medical History Acute hyponatremia Leukocytosis Hypercalcemia Malignant neoplasm of fundus of stomach Malignant neoplasm of lower third of esophagus Iron deficiency anemia due to chronic blood loss Prostate enlargement Anemia Abnormal liver CT Leukocytosis Acute kidney injury superimposed on CKD ERIKA (acute kidney injury) Mass of esophagus Refusal of blood transfusions as patient is Holiness COPD (chronic obstructive pulmonary disease) Former cigarette smoker Encounter for health maintenance examination in adult Hematuria, microscopic BPH (benign prostatic hyperplasia) CKD (chronic kidney disease) stage 3, GFR 30-59 ml/min 11/18/2023 creatinine 1.8 with a GFR 38 Muscle spasms of both lower extremities Hypertension Hyperlipidemia GERD (gastroesophageal reflux disease) Chronic gout Osteoarthritis Surgical History History of esophagogastroduodenoscopy (EGD) Dr. Fitzgerald on 12/24/2023 with lower one third esophageal and gastric mass History of tonsillectomy History of hand surgery right Family History Brother No problems noted. Father Lung disease Ruptured aneurysm of artery Mother Stroke Social History Smoking and tobacco/nicotine status: former use of tobacco/nicotine Quit status (tobacco/nicotine): has quit using Former quit date comment: He began smoking at age 14 and quit sometime in his 20s. Alcohol intake: former Former alcohol use details: He had alcohol use in the past, but never heavy. He quit 3 to 4 years ago. Substance/Drug Use: never Vitals/I&O/Wt Last Vital Signs Temp 97.7 F 02/16/24 16:51 Pulse 150 H 02/16/24 23:00 Resp 16 02/16/24 19:30 BP 95/69 02/16/24 23:00 Pulse Ox 100 02/16/24 23:00 O2 Del Method Room Air 02/16/24 17:36 02/16/24 02/16/24 02/17/24 14:59 22:59 06:59 Intake Total 203.375 / 203.375 Balance 203.375 / 203.375 Weight last 48 hrs Weight 81.647 kg Physical Exam 2 Narrative: Awake and alert Signs of dehydration present, says he is in pain family at bedside limited exam 2/2 to comfort measures abdomen generally somewhat rigid, non tender to palpation, BS + Extremities: non edematous, right upper arm swelling noted at picc insertion site. Lungs clear to ausculation, Generalized anasarca evident more so in upper extremities Currently on room air GCS 15 BP 70/58, 145 HR, 100% on room air Data 02/16/24 17:23 02/16/24 17:23 A&P Assessment and plan (1) Need for comfort care: (2) Hypovolemic shock: (3) GI bleed: (4) Acute renal failure: (5) GERD (gastroesophageal reflux disease): Qualifiers: Esophagitis presence: without esophagitis Qualified Code(s): K21.9 - Gastro-esophageal reflux disease without esophagitis (6) Malignant neoplasm of lower third of esophagus: (7) Metastatic adenocarcinoma: (8) Bradycardia: (9) High anion gap metabolic acidosis: (10) Lactic acidosis: (11) Acute thrombosis of right subclavian vein: (12) Acute hypotension: (13) Uremic acidosis: (14) Melena: Plan #Hypovolemic Shock most likely 2/2 to gi bleed #Ulcerative differentiated large cell carcinoma involving esophagus and stomach fundus stage IVb, #ATN/ARF #Hyperkalemia #Hyponatremia #Hypoalbuminemia #Acute on chronic anemia due to GI bleed with component of Iron deficiency anemia due to chronic blood loss #COPD #former cigarette smoker #BPH #GERD - Please see HPI portion of note. - Patient being admitted for comfort measures. - CC orders placed in chart - Family at bedside, answered their questions and addressed concerns - Move to private room - Pt prefers to go home with hospice however I have discussed with family given patient's acute decompensation and shock, he may not survive and may pass within 24-48 hours. Family understands. DNR/DNI Comfort measures only. Attestations 2 Medical Necessity Statement*: Comfort measures only Diagnoses Need for comfort care Hypovolemic shock R57.1 GI bleed K92.2 Acute renal failure N17.9 Gastroesophageal reflux disease without esophagitis K21.9 Esophagitis presence: without esophagitis Malignant neoplasm of lower third of esophagus C15.5 Metastatic adenocarcinoma C79.9 Bradycardia R00.1 High anion gap metabolic acidosis E87.29 Lactic acidosis E87.20 Acute thrombosis of right subclavian vein I82.B11 Acute hypotension I95.9 Uremic acidosis N25.89 Melena K92.1
[2024-02-17] VITALS (12 sets, daily range): BP systolic 75–83; BP diastolic 51–60; PULSE 140–147; RESP 14–24; O2SAT 98–100
[2024-02-17] MEDS: morphine 4 mg/mL SDV 1 mL IVP ×6 (01:44→11:57)
[2024-02-17] MEDS: ondansetron 2 mg/ML SDV 2 mL 4 MG IVP (01:44)
[2024-02-17] MEDS: blistex lip oint 7 gm Tube 1 APPLIC TOPICAL (01:45)
[2024-02-17] MEDS: LORazepam 2 mg/mL INJ 10 mL MDV IVP (01:45)
--- NOTE | 2024-02-17 08:39 | PC.PHAR ---
PT UNABLE TO VERIFY MEDICATIONS, NEITHER CAN THE FAMILY IN THE ROOM. MED REC DONE VIA PHARMACY MED LIST AND FILL DATES.
--- NOTE | 2024-02-17 10:40 | PM.PN ---
Subjective Subjective: Spoke with the family at the bedside, patient is not able to communicate at all His obtunded Currently on oxygen and the daughter at the bedside, initially they were wanting hospice at home however is stating that she will not be able to take care of him and requesting continuation of hospice care in the hospital Vitals/I&O/Wt Last Vital Signs Temp 97.7 F 02/16/24 16:51 Pulse 147 H 02/17/24 00:47 Resp 16 02/17/24 04:55 BP 75/52 02/17/24 00:47 Pulse Ox 100 02/17/24 00:47 O2 Del Method Nasal Cannula 02/17/24 02:44 02/16/24 02/17/24 02/17/24 22:59 06:59 14:59 Intake Total 203.375 / 099.430 3070 / 1453.375 Output Total 0 / 0 Balance 203.375 / 880.996 1492 / 1453.375 Weight last 48 hrs Weight 86.693 kg Weight 81.647 kg Physical Exam Narrative: Patient is obtunded Currently on oxygen Not able to respond Data 02/16/24 17:23 02/16/24 17:23 A&P Assessment and plan (1) Need for comfort care: Plan Continuation of hospice care in the hospital Family is stating that they were not able to take care of him at home public works manager updated Nurses were also present during communication with the family and case management Attestations Medical Necessity Statement*: Continue hospice care Diagnoses Need for comfort care
--- NOTE | 2024-02-17 16:28 | PC.NURSE ---
pt @1315, confirmed with 2nd nurse, family at bedside, notified
--- NOTE | 2024-02-17 17:41 | P.DES_ITS ---
Discharge Providers DDS Date of Admission: 02/17/24 00:44 Date Summary Completed: 02/17/24 Attending Provider at Admission: Staci Grullon MD Attending Provider at Discharge: Yeni Johansen MD Primary Care Provider: Brad Gilmore MD DS Diagnoses Hospital Diagnoses (1) Need for comfort care: Reason for Visit Reason for Visit low bp, bilat edema Summary Summary Summary: 63-year male who was put on hospice care in the hospital at the time of admission for his advanced stomach cancer with invasion to liver patient was diagnosed with stage IV cancer he was getting palliative chemotherapy which he was not able to tolerate, he was suffering with severe dehydration, considering 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 Patient in the hospital on hospice care. Additional Data Confirmation of as documented by pronouncing clinician: no pulse, no respirations, no heart sounds and pupils fixed and dilated Family: at bedside Additional persons at bedside: nursing staff Was code activated?: No Autopsy requested?: No Advance directives?: Yes Hospice patient?: Yes Discharge Plan Discharge Patient Disposition: At Medical Facility Condition: Stable Prescriptions: No Action gabapentin 300 mg capsule 300 mg PO DAILY PRN (Reason: Pain) loratadine [Claritin] 10 mg tablet 10 mg PO DAILY PRN (Reason: allergies) allopurinol 300 mg tablet 150 mg PO DAILY PRN (Reason: Gout) morphine 15 mg tablet 15 mg PO BID PRN (Reason: pain) 30 Days Qty: 60 0RF albuterol sulfate [Ventolin HFA] 90 mcg/actuation HFA aerosol inhaler 2 puff inhalation Q4H PRN (Reason: shortness of breath or wheezing) Qty: 8.5 1RF cyclobenzaprine 5 mg tablet 5 mg PO BID PRN (Reason: muscle spasm) 60 Days Qty: 120 1RF capecitabine 500 mg tablet 1,500 mg PO BID Qty: 84 2RF Rx Instructions: day 1-14 per 21-day cycle; administer with water 30 minutes after a meal capecitabine 150 mg tablet 150 mg PO BID Qty: 28 0RF Rx Instructions: administer with 3 - 500 mg tabs for each dose; must give with water 30 minutes after a meal sucralfate 1 gram tablet 1 g PO BID 56 Days Qty: 112 0RF ferrous sulfate 325 mg (65 mg iron) tablet 325 mg PO EVERY OTHER DAY Qty: 90 0RF omeprazole 20 mg capsule,delayed release(DR/EC) 20 mg PO DAILY PRN (Reason: Acid Reflux) sodium chloride 1,000 mg tablet,soluble 1,000 mg PO BID Qty: 20 0RF atorvastatin 80 mg tablet 80 mg PO DAILY metoprolol tartrate 100 mg tablet 50 mg PO BID ondansetron HCl 4 mg tablet 4 mg PO QID PRN (Reason: Nausea And Vomiting) prochlorperazine maleate 10 mg tablet 10 mg PO Q4H PRN (Reason: MILD NAUSEA) amlodipine 10 mg tablet 10 mg PO DAILY pantoprazole 40 mg tablet,delayed release (DR/EC) 40 mg PO BID Rx Instructions: FOR 6 WEEKS losartan 100 mg tablet 100 mg PO DAILY Referrals: Brad Gilmore MD [Primary Care Provider] - Probable Cause of Probable cause of : Cardiac arrest DS Attestations Time Spent in /Discharge Care*: less than 30 min Quality - AMI: AMI present?: No Quality - Stroke: CVA present?: No Symptom Onset Unknown: No Quality - VTE: VTE present?: No Deep Vein Thrombosis/Pulmonary Embolism Present on Admission: Yes Coding Level of Care Code Acute Code for Chg Fwd Diagnoses Need for comfort care
== END 2024-02-17 15:55 ==
LOC: ER 23:19 → MEDSURG 02-17 02:04
PROVIDERS: Admitting Provider Internal Medicine; Emergency Provider Family Medicine; PCP Family Medicine Adult Medicine; Visit Provider Internal Medicine
DX: Z51.5 Encounter for palliative care (principal); C15.5 Malignant neoplasm of lower third of esophagus; C79.89 Secondary malignant neoplasm of other specified sites; R57.1 Hypovolemic shock; K92.2 Gastrointestinal hemorrhage, unspecified; N17.9 Acute kidney failure, unspecified; K21.9 Gastro-esophageal reflux disease without esophagitis; R00.1 Bradycardia, unspecified; E87.29 Other acidosis; E87.20 Acidosis, unspecified; I82.B11 Acute embolism and thrombosis of right subclavian vein; I95.9 Hypotension, unspecified; N25.89 Other disorders resulting from impaired renal tubular function; K92.1 Melena; D50.0 Iron deficiency anemia secondary to blood loss (chronic); Z87.891 Personal history of nicotine dependence; N40.0 Benign prostatic hyperplasia without lower urinary tract symptoms; I12.9 Hypertensive chronic kidney disease with stage 1 through stage 4 chronic kidney disease, or unspecified chronic kidney disease; N18.9 Chronic kidney disease, unspecified; Z66 Do not resuscitate
CPT/HCPCS: 71045; 74176; 80053; 81001; 82550; 83605; 83690; 83735; 84484; 85025; 93005; 93971; 96365; 96366; 96367; 96375; 99291; C9113; G0378; J1265; J2060; J2270; J2405; J7030

== ENCOUNTER 2024-02-17 15:00 | Oncology outpatient (recurring) (ONCR) | payer MEDICAID, SELFPAY ==
[2024-01-28 09:06] LABS: Basophils # 0.1 10^3/uL (0.0-0.1); Basophils % 0.2 %; Hematocrit 39.9 % (37-53); Lymphocytes # 2.4 10^3/uL (0.8-4.8); Lymphocytes % 7.1 %; Mean Corpuscular HGB Conc 31.3 g/dL (30-55); Mean Corpuscular Hemoglobin 24.7 pg (27-33); Mean Corpuscular Volume 78.9 fl (82-101); Mean Platelet Volume 10.2 fL (7.4-10.4); Monocytes # 2.3 10^3/uL (0.2-0.9); Monocytes % 6.6 %; Neutrophils % 84.5 %; Nucleated Red Blood Cells % 0.1 %; Platelet Count 759 10^3/cmm (157-399); Red Blood Count 5.06 10^6/uL (3.85-5.65); Red Cell Distribution Width 21.9 % (12.1-15.1)
[2024-01-28 09:49] LABS: Alanine Aminotransferase 229 U/L (0-41); Albumin Level 2.5 g/dL (3.5-5.2); Alkaline Phosphatase 536 U/L (40-130); Aspartate Amino Transferase 349 U/L (0-40); Blood Urea Nitrogen 49 mg/dL (8-23); Calcium 12.8 mg/dL (8.5-10.5); Carbon Dioxide 19 mmol/L (22-29); Chloride 97 mmol/L (98-107); Glomerular Filtration Rate 47.1 mL/min (90-130); Glucose 96 mg/dL (65-115); Osmolality Calculated 283 mOsm/kg (285-295); Sodium 130 mmol/L (136-145); Total Bilirubin 1.7 mg/dL (0.15-1.2); Total Protein 5.5 g/dL (6.6-8.7)
[2024-01-28] MEDS: ferric carboxy (IVPB) 750 MG in sodium chloride 0.9% (100 ml) 100 ML 345 MG IV (10:13)
[2024-01-28 10:15] LABS: White Blood Count 34.31 10^3/uL (3.29-11.43)
[2024-01-28 10:16] VITALS: BP 94/64; PULSE 121; TEMP 36.4; O2SAT 95
[2024-01-28] MEDS: sodium chloride 0.9% 1,000 ML 999 ML IV (10:54)
[2024-01-28] MEDS: zoledronic acid (Zometa) 4 MG/100 ML PIGGYBACK 400 MG IV (12:38)
[2024-01-28 13:14] VITALS: BP 97/61; PULSE 119; RESP 17; TEMP 36.1; O2SAT 93
[2024-01-29 11:15] LABS: Basophils # 0.1 10^3/uL (0.0-0.1); Basophils % 0.2 %; Hematocrit 38.5 % (37-53); Lymphocytes # 1.8 10^3/uL (0.8-4.8); Lymphocytes % 4.4 %; Mean Corpuscular HGB Conc 31.2 g/dL (30-55); Mean Corpuscular Volume 80.2 fl (82-101); Mean Platelet Volume 9.8 fL (7.4-10.4); Monocytes # 2.3 10^3/uL (0.2-0.9); Monocytes % 5.6 %; Neutrophils # 35.96 10^3/uL (1.8-7.7); Neutrophils % 87.2 %; Nucleated Red Blood Cells # 0.1 /100WBC; Nucleated Red Blood Cells % 0.3 %; Platelet Count 634 10^3/cmm (157-399); Red Cell Distribution Width 23.1 % (12.1-15.1)
[2024-01-29 11:34] LABS: Alanine Aminotransferase 302 U/L (0-41); Albumin Level 2.5 g/dL (3.5-5.2); Alkaline Phosphatase 509 U/L (40-130); Aspartate Amino Transferase 477 U/L (0-40); Blood Urea Nitrogen 64 mg/dL (8-23); Calcium 11.6 mg/dL (8.5-10.5); Carbon Dioxide 20 mmol/L (22-29); Chloride 95 mmol/L (98-107); Globulin 2.7 g/dL (1.3-4.6); Glomerular Filtration Rate 43.7 mL/min (90-130); Glucose 108 mg/dL (65-115); Osmolality Calculated 287 mOsm/kg (285-295); Sodium 129 mmol/L (136-145); Total Bilirubin 1.7 mg/dL (0.15-1.2); Total Protein 5.2 g/dL (6.6-8.7)
[2024-01-29 11:36] LABS: Anion Gap 19.1 (5-19); Potassium 5.1 mmol/L (3.5-5.1)
[2024-01-29 12:11] LABS: White Blood Count 41.25 10^3/uL (3.29-11.43)
[2024-02-03] MEDS: palonosetron 0.25 mg/5 mL SDV IVP (11:48)
[2024-02-03] MEDS: dextrose 5% 250 ML 75 ML IV (11:48)
[2024-02-03 11:57] VITALS: BP 67/47; PULSE 114; RESP 16; TEMP 36.5; O2SAT 94
[2024-02-03 11:59] VITALS: BP 70/50
[2024-02-03] MEDS: DEXTROSE 5% IV ×2 (12:25)
[2024-02-03] MEDS: OXALIPLATIN IV (12:25)
[2024-02-03] MEDS: LEUCOVORIN IV (12:25)
[2024-02-03] MEDS: sodium chloride 0.9% 500 ML 300 ML IV (12:52)
[2024-02-03] MEDS: fluorouraciL 50 mg/ml MDV 100 mL 400 MG IVP (14:51)
[2024-02-03] MEDS: FLUOROURACIL IV (15:07)
[2024-02-03] MEDS: ELASTOMERIC PUMP PUMP IV (15:07)
[2024-02-03] MEDS: SODIUM CHLORIDE IV (15:07)
[2024-02-03 15:10] VITALS: BP 100/63; PULSE 100; RESP 16; TEMP 36.6; O2SAT 91
[2024-02-05 14:02] VITALS: BP 64/45; PULSE 104; RESP 16; TEMP 36.6; O2SAT 98
[2024-02-05] MEDS: sodium chloride 0.9% 1,000 ML 500 ML IV (14:20)
[2024-02-05] MEDS: ondansetron 2 mg/ML SDV 2 mL 4 MG IVP (15:41)
[2024-02-05 16:35] VITALS: BP 97/61; PULSE 95; RESP 17; TEMP 36.6; O2SAT 94
== END 2024-02-27 23:59 | disposition home or self-care (01) ==
PROVIDERS: Nurse Practitioner Family; PCP Family Medicine Adult Medicine; Visit Provider Internal Medicine Medical Oncology
DX: Z53.9 Procedure and treatment not carried out, unspecified reason (principal)
CPT/HCPCS: 80053; 85025; 96360; 96361; 96365; 96367; 96368; 96375; 96411; 96413; 96415; 96416; 96523; J0640; J1100; J1439; J2405; J2469; J3489; J7030; J7040; J7060; J9190; J9263